=== PATIENT | male | born 1955 | race Caucasian/White ===

== ENCOUNTER 2020-10-30 06:45 | Outpatient (REF) | payer MEDICARE, MEDICAID, SELFPAY ==
[2020-10-30 11:50] LABS: Estimated Average Glucose 212 mg/dL
[2020-10-30 11:54] LABS: Alanine Aminotransferase 25 U/L (0-40); Albumin Level 4.1 g/dL (3.5-5.0); Alkaline Phosphatase 95 U/L (39-117); Anion Gap 15 (12-20); Aspartate Amino Transferase 28 U/L (5-37); Blood Urea Nitrogen 23 mg/dL (9-16); Carbon Dioxide 27 mmol/L (22-29); Chloride 102 mmol/L (96-108); Cholesterol 143 mg/dL; Estimated Glomerular Filt Rate 50; Glucose Fasting 290 mg/dL (60-99); HDL Cholesterol 32 mg/dL; Potassium 3.7 mmol/L (3.3-5.1); Sodium 140 mmol/L (135-145); Total Protein 6.8 g/dL (6.5-8.0); Triglycerides 403 mg/dL
[2020-10-30 12:17] LABS: TSH reflex Free T4 3.84 uIU/mL (0.32-4.0)
[2020-10-30 12:30] LABS: Creatinine Urine 127.38 mg/dL; Microalbum/Creatinine Ratio Ur 6.2 ug/mg cr
== END 2020-10-30 06:46 | disposition home or self-care (01) ==
LOC: HO.HMGCLDS 06:45
PROVIDERS: PCP Nurse Practitioner Family; Visit Provider Nurse Practitioner Family
DX: Z12.5 Encounter for screening for malignant neoplasm of prostate (principal); E11.9 Type 2 diabetes mellitus without complications; E03.9 Hypothyroidism, unspecified
CPT/HCPCS: 36415; 80053; 80061; 82043; 83036; 84153; 84443

== ENCOUNTER 2020-11-03 07:23 | Outpatient (REF) | payer MEDICARE, MEDICAID, SELFPAY ==
[2020-11-03 11:51] LABS: Alanine Aminotransferase 27 U/L (0-40); Albumin Level 4.1 g/dL (3.5-5.0); Alkaline Phosphatase 98 U/L (39-117); Anion Gap 15 (12-20); Aspartate Amino Transferase 29 U/L (5-37); Blood Urea Nitrogen 21 mg/dL (9-16); Calcium 9.1 mg/dL (8.4-10.2); Carbon Dioxide 25 mmol/L (22-29); Chloride 103 mmol/L (96-108); Estimated Glomerular Filt Rate 57; Glucose Random 243 mg/dL (60-115); Potassium 3.8 mmol/L (3.3-5.1); Sodium 139 mmol/L (135-145); Total Protein 6.8 g/dL (6.5-8.0)
[2020-11-03 12:03] LABS: Prostate Specific Antigen Scr 1.58 ng/mL (<0.05-4.0)
== END 2020-11-03 07:24 | disposition home or self-care (01) ==
LOC: HO.HMGCLDS 07:23
PROVIDERS: PCP Nurse Practitioner Family; Visit Provider Nurse Practitioner Family
DX: Z12.5 Encounter for screening for malignant neoplasm of prostate (principal); R79.89 Other specified abnormal findings of blood chemistry
CPT/HCPCS: 36415; 80053; 84153

== ENCOUNTER 2021-06-05 13:53 | Outpatient (REF) | payer MEDICARE, MEDICAID, SELFPAY ==
--- NOTE | ~2021-06-05 | XR_ITS ---
EXAMINATION: XR CHEST CLINICAL INFORMATION: Dorsalgia, unspecified. COMPARISON: Chest done on 04/23/2019. TECHNIQUE: 2 views of the chest were obtained. FINDINGS: Stable linear pleuroparenchymal opacities are noted at left lung base, unchanged since 04/23/2019. The remainder of the lung apices bilaterally appear clear. Cardiac mediastinal silhouette is within normal limits. There is no evidence of any pleural effusion or pneumothorax. Mild multilevel degenerative spondylosis, unchanged. XR/XR chest 2V IMPRESSION: Stable radiographic appearance of the chest since 04/23/2019. Mild multilevel degenerative spondylosis and stable presumed pleuroparenchymal scar at left lung base.
== END 2021-06-05 13:54 | disposition home or self-care (01) ==
LOC: HO.HMGCX 13:53
PROVIDERS: PCP Nurse Practitioner Family; Visit Provider Internal Medicine
DX: M54.9 Dorsalgia, unspecified (principal)
CPT/HCPCS: 71046

== ENCOUNTER 2021-08-01 12:21 | Outpatient (REF) | payer MEDICARE, MEDICAID, SELFPAY ==
--- NOTE | ~2021-08-01 | XR_ITS ---
EXAMINATION: XR CHEST CLINICAL INFORMATION: R05.9 - Cough, unspecified COMPARISON: Chest radiographs 06/05/2021, 04/23/2019 TECHNIQUE: 2 views of the chest were obtained. FINDINGS: There is fine linear scarring inferior lingula similar to prior studies. Lateral view shows disc atelectasis posterior base. The remainder the lungs are clear. The vascularity is normal. There is no lobar or segmental airspace consolidation or groundglass opacity. No definite effusion. The heart is normal in size and the hilar and mediastinal contours are normal. XR/XR chest 2V IMPRESSION: 1. Disc atelectasis left posterior base. 2. Fine linear scar left lower zone similar to prior studies. 3. No lobar or segmental airspace consolidation or groundglass opacity.
== END 2021-08-01 12:22 | disposition home or self-care (01) ==
LOC: HO.HMGCX 12:21
PROVIDERS: Visit Provider Physician Assistant
DX: R05.9 Cough, unspecified (principal)
CPT/HCPCS: 71046

== ENCOUNTER 2021-09-14 15:44 | Emergency (ER) | payer MEDICARE, MEDICAID, SELFPAY ==
--- NOTE | ~2021-09-14 | XR_ITS ---
EXAMINATION: XR CHEST CLINICAL INFORMATION: Chest pain. COMPARISON: Chest radiograph dated from 08/01/2021. TECHNIQUE: AP view of the chest was obtained. FINDINGS: Stable appearance of the cardiomediastinal silhouette with atherosclerotic disease of the thoracic aorta. There are new very subtle hazy opacities in the right lung (see abarca saved images). There is redemonstration increased platelike opacities in the left lower lobe/retrocardiac region. No pleural effusion or pneumothorax. No acute osseous abnormalities. XR/XR chest 1V IMPRESSION: New hazy airspace opacities in the right lung and increased platelike opacities in the retrocardiac region is/left lower lobe. Findings raises the possibility of infiltrates in the setting of an atypical infectious or inflammatory process. Correlate clinically for infection and recommend a follow-up study after treatment to ensure resolution.
--- NOTE | 2021-09-14 15:49 | ECG_ITS ---
Test Reason : CHEST PAIN Blood Pressure : / mmHG Vent. Rate : 076 BPM Atrial Rate : 076 BPM P-R Int : 164 ms QRS Dur : 072 ms QT Int : 368 ms P-R-T Axes : 000 -20 000 degrees QTc Int : 414 ms Normal sinus rhythm Normal ECG When compared with ECG of 14-MAR-2014 10:37, QT has shortened Referred By: Generic ED Physician Electronically Signed By:Denny De Los Santos
[2021-09-14 15:50] VITALS: BP 149/90; PULSE 91; O2SAT 98
[2021-09-14 15:51] VITALS: BP 161/87; PULSE 81; RESP 18; TEMP 36.8; O2SAT 97; BMI 32.5
[2021-09-14 16:03] VITALS: BP 161/97; PULSE 86; RESP 16; TEMP 36.8; O2SAT 96
--- NOTE | 2021-09-14 16:14 | ED.CHESTPAIN ---
HPI - Chest Pain General Chief Complaint: Chest Pain <Matilda Painter NP - Last Filed: 09/14/21 22:30> Stated Complaint: chest pain <Matilda Painter NP - Last Filed: 09/14/21 22:30> Time Seen by Provider: 09/14/21 16:10 <Matilda Painter NP - Last Filed: 09/14/21 22:30> Source: patient and EMS <Matilda Painter NP - Last Filed: 09/14/21 22:30> Mode of arrival: EMS <Matilda Painter NP - Last Filed: 09/14/21 22:30> Limitations: no limitations <Matilda Painter NP - Last Filed: 09/14/21 22:30> History of Present Illness HPI narrative: 66-year-old male presents via EMS for mid substernal stabbing and burning chest pain. Patient also had a syncopal event during an episode of chest pain <Matilda Painter NP - Last Filed: 09/14/21 22:30> MD complaint: chest pain <Matilda Painter NP - Last Filed: 09/14/21 22:30> Onset (ago): day(s) (2) <Matilda Painter NP - Last Filed: 09/14/21 22:30> Timing of current episode: episodic <Matilda Painter NP - Last Filed: 09/14/21 22:30> Prior episodes: Yes <Matilda Painter NP - Last Filed: 09/14/21 22:30> Onset: during rest <Matilda Painter NP - Last Filed: 09/14/21 22:30> Pain location: substernal and epigastric <Matilda Painter NP - Last Filed: 09/14/21 22:30> Quality: burning <Matilda Painter NP - Last Filed: 09/14/21 22:30> Exacerbating factors: nothing <Matilda Painter NP - Last Filed: 09/14/21 22:30> Associated symptoms: syncope <Matilda Painter NP - Last Filed: 09/14/21 22:30> Treatment prior to arrival: none <Matilda Painter NP - Last Filed: 09/14/21 22:30> Risk Factors Coronary artery disease risk factors: diabetes, hyperlipidemia and hypertension <Matilda Painter NP - Last Filed: 09/14/21 22:30> Thoracic aortic dissection risk factors: none <Matilda Painter NP - Last Filed: 09/14/21 22:30> Related Data Home Medications: Home Medications Medication Instructions Recorded Confirmed terazosin 5 mg capsule 5 mg PO BEDTIME 03/23/20 02/28/21 blood sugar diagnostic #10 ea 04/19/20 02/28/21 Previous Rx's Medication Instructions Recorded diabetic shoes #1 ea 06/13/20 potassium chloride 10 mEq 10 meq PO DAILY #90 cap 06/27/20 tablet,extended release(part/cryst) alcohol swabs (Alcohol Prep Pads) 1 pad TOPICAL TID 30 Days #100 ea 03/20/21 losartan 50 mg tablet 50 mg PO DAILY #90 cap 03/20/21 ighgno-xjhmcsfv-fulmxap 1 cap PO TID 30 Days #90 cap 05/20/21 15,000-47,000-63,000 unit capsule,delayed rel (Zenpep) cyclobenzaprine 10 mg tablet 10 mg PO BEDTIME #14 tab 06/05/21 meloxicam 15 mg tablet 15 mg PO DAILY #14 tab 06/05/21 potassium chloride 10 mEq 10 meq PO DAILY 90 Days #90 tab 06/18/21 tablet,extended release insulin human U-100 NPH-regulr 80 unit (0.8 mL) SUBCUT DAILY 90 07/03/21 70-30 mix 100 unit/mL subcutaneous Days #72 ml susp (Novolin 70/30 U-100 Insulin) pravastatin 80 mg tablet 80 mg PO DAILY 90 Days #90 cap 07/18/21 oxycodone 5 mg capsule 5 mg PO Q12H PRN #10 cap 08/02/21 blood sugar diagnostic (Accu-Chek 1 strip MISCELLANEOUS TID 90 Days 08/18/21 Soo Plus test strp) #100 ea hydrochlorothiazide 25 mg tablet 25 mg PO QAM 90 Days #90 tab 08/18/21 insulin syringe-needle U-100 1 mL #100 ea 08/18/21 30 gauge x 1/2 levothyroxine 112 mcg tablet 112 mcg PO DAILY #90 cap 08/18/21 metoprolol tartrate 50 mg tablet 50 mg PO BID #180 cap 08/18/21 ursodiol 300 mg capsule 300 mg PO BID #180 cap 08/18/21 esomeprazole magnesium 40 mg 40 mg PO DAILY 90 Days #90 cap 08/23/21 capsule,delayed release sucralfate 1 gram tablet 1 g PO BID #30 tab 09/11/21 azithromycin 250 mg tablet 250 mg PO DAILY 4 Days #4 tab 09/14/21 <Matilda Painter NP - Last Filed: 09/14/21 22:30> Allergies/Adverse Reactions: Allergies Allergy/AdvReac Type Severity Reaction Status Date / Time ciprofloxacin [From CIPRO] Allergy Unknown UNKNOWN Verified 09/11/21 14:04 doxycycline [DOXYCYCLINE] Allergy Unknown UNKNOWN Verified 09/11/21 14:04 prednisone [PREDNISONE] Allergy Unknown UNKNOWN Verified 09/11/21 14:04 NUMBING MEDICATION Allergy Severe HEART Uncoded 09/11/21 14:04 STOPPED From DETROL Allergy Unknown UNKNOWN Uncoded 09/11/21 14:04 From LESCOL Allergy Unknown UNKNOWN Uncoded 09/11/21 14:04 <Matilda Painter NP - Last Filed: 09/14/21 22:30> Review of Systems Review of Systems: Constitutional: Positive syncope, No Weight loss, No Fever, No Chills, No Night Sweats, No Fatigue, No Malaise ENT/Mouth: No Hearing loss, No Ear Pain, No Nasal Congestion, No Sinus Pain, No Hoarseness, No sore throat, No Rhinorrhea, No Swallowing Difficulty Eyes: No Eye Pain, No Swelling, No Redness, No Foreign Body, No Discharge, No Vision Changes Cardiovascular: Positive Chest Pain, no SOB, no Dyspnea on Exertion, No Orthopnea, No Edema, No Palpitations Respiratory: No Cough, No Sputum, No Wheezing, No Smoke Exposure, No Dyspnea Gastrointestinal: No Nausea, No Vomiting, No Diarrhea, No abdominal Pain, No Hematochezia, No Melena Genitourinary: No irregular bleeding, No Dysuria, No Urinary Frequency, No Hematuria, No Urinary Incontinence, No Urgency, No Flank Pain, No Urinary Flow Changes, No Hesitancy Musculoskeletal: No joint pain, No Myalgias, No Joint Swelling Skin: No Skin Lesions, No rash Neuro: No Weakness, No Numbness, No Paresthesias, No Loss of Consciousness, No Dizziness, No Headache Psych: No Anxiety/Panic, No Depression, No SI/HI/AH/VH Heme/Lymph: No Bruising, No Bleeding,No Lymphadenopathy Endocrine: No Polyuria, No Polydipsia, No Temperature Intolerance <Matilda Painter NP - Last Filed: 09/14/21 22:30> Yes all other systems are reviewed and are negative <Matilda Painter NP - Last Filed: 09/14/21 22:30> [facility] Past Medical History Attestation statement: The following information was validated with the patient. <Matilda Painter NP - Last Filed: 09/14/21 22:30> Source: old records reviewed <Matilda Painter NP - Last Filed: 09/14/21 22:30> Medical History: Medical History Anxiety Hyperlipidemia Hypertension Pancreatitis Screening PSA (prostate specific antigen) <Matilda Painter NP - Last Filed: 09/14/21 22:30> Social History Social History: Social History Patient Tobacco Use Status: Never used Tobacco Advance Directives: No Advance Directives Information Provided: No <Matilda Painter NP - Last Filed: 09/14/21 22:30> Physical Exam Vital Signs: Vital Signs: Last Vital Signs Temp 98.9 F 09/14/21 21:38 Pulse 90 09/14/21 21:38 Resp 20 09/14/21 21:38 BP 168/83 H 09/14/21 21:38 Pulse Ox 97 09/14/21 21:38 BMI result Body Mass Index 32.5 <Matilda Painter NP - Last Filed: 09/14/21 22:30> Vital Signs: Last Vital Signs Temp 98.9 F 09/14/21 21:38 Pulse 90 09/14/21 21:38 Resp 20 09/14/21 21:38 BP 168/83 H 09/14/21 21:38 Pulse Ox 97 09/14/21 21:38 BMI result Body Mass Index 32.5 <Duran Oliveros MD - Last Filed: 09/14/21 21:49> Appearance: Alert. Oriented X3. No acute distress. Eyes: Pupils equal, round and reactive to light. ENT: Pharynx normal. Neck: Normal inspection. Neck supple. CVS: Normal heart rate and rhythm. Pulses normal. Respiratory: No respiratory distress. Breath sounds normal. Abdomen: Soft and nontender. Skin: Skin warm and dry. Normal skin color. Normal skin turgor. Extremities: No lower extremity edema. Gait not assessed for safety. Move all extremities against resistance. Neuro: No motor deficit. No sensory deficit. Cranial nerves 2 through 12 intact <Matilda Painter NP - Last Filed: 09/14/21 22:30> Course Course Course Narrative: 66-year-old male presents with midsternal stabbing chest pain, abdominal and epigastric pain with a syncopal episode. States that he has had GERD in the past and it feels similar with the exception of the syncopal episode. He does not report chest pain on inspiration, shortness of breath. He does not report fevers or chills. Will order labs to rule out ACS, chest x-ray to rule out pneumonia. 17:51 labs drawn at this time. 18:23 lactic acid 2.3. Sepsis protocol started at this time. x-ray shows infiltrates consistent with pneumonia. Will start with fluid resuscitation, ceftriaxone and azithromycin. Fluid resuscitation per ideal body weight, 2000 mL of normal saline. First troponin is 90. Will repeat 2nd. 21:37 2nd troponin is 135. Patient is still adamant about being discharged against medical advice. Multiple discussions with patient regarding risks of leaving against medical advice. Patient verbalized understanding of risks including . 21:44 Dr. Gilliland in to discuss plan with patient. Patient is adamant about leaving at this time. Discharged against medical advice. <Matilda Painter NP - Last Filed: 09/14/21 22:30> 66-year-old male presents with midsternal stabbing chest pain, abdominal and epigastric pain with a syncopal episode. States that he has had GERD in the past and it feels similar with the exception of the syncopal episode. He does not report chest pain on inspiration, shortness of breath. He does not report fevers or chills. Will order labs to rule out ACS, chest x-ray to rule out pneumonia. 17:51 labs drawn at this time. 18:23 lactic acid 2.3. Sepsis protocol started at this time. x-ray shows infiltrates consistent with pneumonia. Will start with fluid resuscitation, ceftriaxone and azithromycin. Fluid resuscitation per ideal body weight, 2000 mL of normal saline. First troponin is 90. Will repeat 2nd. 21:37 2nd troponin is 135. Patient is still adamant about being discharged against medical advice. Multiple discussions with patient regarding risks of leaving against medical advice. Patient verbalized understanding of risks including . 21:44 Dr. Gilliland in to discuss plan with patient. Patient is adamant about leaving at this time. Discharged against medical advice. <Duran Oliveros MD - Last Filed: 09/14/21 21:49> Reevaluation(s) Reevaluation #1: Case discussed with patient about the chest pain that needs further evaluation and could be equivalent to ACS patient refused to stay in the hospital understood the risk of having an OR including the will sign the AMA form <Duran Oliveros MD - Last Filed: 09/14/21 21:49> Time: 21:48 <Duran Oliveros MD - Last Filed: 09/14/21 21:49> MDM - Chest Pain Differential Diagnosis Differential diagnosis: Likely atypical chest pain, st elevation myocardial infarction, costochondritis and chest pain <Matilda Painter NP - Last Filed: 09/14/21 22:30> Medical Records Data Attestation: I reviewed the patient's medical records. <Matilda Painter NP - Last Filed: 09/14/21 22:30> Lab Data Attestation: I reviewed the patient's lab results. <Matilda Painter NP - Last Filed: 09/14/21 22:30> Result diagrams: : 09/14/21 17:51 09/14/21 17:51 <Matilda Painter NP - Last Filed: 09/14/21 22:30> Labs: Lab Results 09/14/21 09/14/21 09/14/21 Range/Units 17:51 17:51 17:51 WBC 9.6 (4.8-10.8) X10*3/uL RBC 4.39 L (4.60-5.80) X10*6/uL Hgb 13.4 L (14.0-18.0) g/dl Hct 39.5 L (42.0-52.0) % MCV 90.0 (80.0-98.0) fL MCH 30.5 (27.0-33.0) pg MCHC 33.9 (31.0-36.0) g/dl RDW 12.5 (11.0-16.0) % Plt Count 162 (160-400) X10*3/uL MPV 11.2 (9.4-12.4) fL Immature Gran % (Auto) 0.5 H (0.0-0.4) % Neut % (Auto) 78.6 H (45-73) % Lymph % (Auto) 14.2 L (20-40) % [place] % (Auto) 5.0 (2-11) % Eos % (Auto) 1.4 (0-4) % Baso % (Auto) 0.3 (0-2) % Lymph # (Auto) 1.4 (1.2-4.9) X10*3/uL [place] # (Auto) 0.5 (0.1-1.2) X10*3/uL Eos # (Auto) 0.1 (0.0-0.4) X10*3/uL Baso # (Auto) 0.0 (0.0-0.2) X10*3/uL Abs Immat Gran (auto) 0.05 H (0.00-0.03) X10*3/uL Absolute Neuts (auto) 7.5 (2.0-8.3) x10*3/uL Absolute Nucleated RBC 0.000 (0.0-0.012) X10*3/uL Nucleated RBC % (auto) 0.0 (0.0-0.2) /100WBC PT 12.1 (9.9-13.0) SEC INR 1.1 (0.9-1.1) Sodium 137 (135-145) mmol/L Potassium 4.0 (3.3-5.1) mmol/L Chloride 101 (96-108) mmol/L Carbon Dioxide 26 (22-29) mmol/L Anion Gap 14 (12-20) BUN 25 H (9-16) mg/dL Creatinine 1.35 (0.5-1.4) mg/dL Estim Creat Clear Calc 53.2 Estimated GFR 53 Random Glucose 250 H (60-115) mg/dL Lactic Acid (0.5-2.0) mmol/L Lactic Acid F/U @ 2Hr (0.5-2.0) mmol/L Calcium 9.9 D (8.4-10.2) mg/dL Magnesium 2.0 (1.6-2.6) mg/dL Total Bilirubin 1.2 H (0.0-1.0) mg/dL Direct Bilirubin 0.4 (0.0-0.5) mg/dL AST 25 (5-37) U/L ALT 27 (0-40) U/L Alkaline Phosphatase 112 (39-117) U/L Troponin I High Sens (<3.5-35.0) ng/L B-Natriuretic Peptide (<100) pg/mL Total Protein 7.2 (6.5-8.0) g/dL Albumin 4.4 (3.5-5.0) g/dL Lipase 6 L (8-78) U/L Urine Color Urine Appearance Urine pH (5.0-8.0) Ur Specific [place] (1.005-1.025) Urine Protein (NEG-TRACE) MG/DL Urine Glucose (UA) (NEG) MG/DL Urine Ketones (NEG) MG/DL Urine Blood (NEG) Urine Nitrite (NEG) Ur Leukocyte Esterase (NEG) Urine Opiates Screen (Not Detect) Urine Fentanyl Screen (Not Detect) Ur Barbiturates Screen (Not Detect) Ur Phencyclidine Scrn (Not Detect) Ur Amphetamines Screen (Not Detect) U Benzodiazepines Scrn (Not Detect) Urine Cocaine Screen (Not Detect) U Marijuana (THC) Screen (Not Detect) Ethyl Alcohol mg/dL COVID-19 ([facility]) (Negative) COVID-19 Clin Com 09/14/21 09/14/21 09/14/21 Range/Units 17:51 17:51 17:51 WBC (4.8-10.8) X10*3/uL RBC (4.60-5.80) X10*6/uL Hgb (14.0-18.0) g/dl Hct (42.0-52.0) % MCV (80.0-98.0) fL MCH (27.0-33.0) pg MCHC (31.0-36.0) g/dl RDW (11.0-16.0) % Plt Count (160-400) X10*3/uL MPV (9.4-12.4) fL Immature Gran % (Auto) (0.0-0.4) % Neut % (Auto) (45-73) % Lymph % (Auto) (20-40) % [place] % (Auto) (2-11) % Eos % (Auto) (0-4) % Baso % (Auto) (0-2) % Lymph # (Auto) (1.2-4.9) X10*3/uL [place] # (Auto) (0.1-1.2) X10*3/uL Eos # (Auto) (0.0-0.4) X10*3/uL Baso # (Auto) (0.0-0.2) X10*3/uL Abs Immat Gran (auto) (0.00-0.03) X10*3/uL Absolute Neuts (auto) (2.0-8.3) x10*3/uL Absolute Nucleated RBC (0.0-0.012) X10*3/uL Nucleated RBC % (auto) (0.0-0.2) /100WBC PT (9.9-13.0) SEC INR (0.9-1.1) Sodium (135-145) mmol/L Potassium (3.3-5.1) mmol/L Chloride (96-108) mmol/L Carbon Dioxide (22-29) mmol/L Anion Gap (12-20) BUN (9-16) mg/dL Creatinine (0.5-1.4) mg/dL Estim Creat Clear Calc Estimated GFR Random Glucose (60-115) mg/dL Lactic Acid 2.3 H* (0.5-2.0) mmol/L Lactic Acid F/U @ 2Hr (0.5-2.0) mmol/L Calcium (8.4-10.2) mg/dL Magnesium (1.6-2.6) mg/dL Total Bilirubin (0.0-1.0) mg/dL Direct Bilirubin (0.0-0.5) mg/dL AST (5-37) U/L ALT (0-40) U/L Alkaline Phosphatase (39-117) U/L Troponin I High Sens 91.3 H (<3.5-35.0) ng/L B-Natriuretic Peptide (<100) pg/mL Total Protein (6.5-8.0) g/dL Albumin (3.5-5.0) g/dL Lipase (8-78) U/L Urine Color Urine Appearance Urine pH (5.0-8.0) Ur Specific [place] (1.005-1.025) Urine Protein (NEG-TRACE) MG/DL Urine Glucose (UA) (NEG) MG/DL Urine Ketones (NEG) MG/DL Urine Blood (NEG) Urine Nitrite (NEG) Ur Leukocyte Esterase (NEG) Urine Opiates Screen (Not Detect) Urine Fentanyl Screen (Not Detect) Ur Barbiturates Screen (Not Detect) Ur Phencyclidine Scrn (Not Detect) Ur Amphetamines Screen (Not Detect) U Benzodiazepines Scrn (Not Detect) Urine Cocaine Screen (Not Detect) U Marijuana (THC) Screen (Not Detect) Ethyl Alcohol mg/dL COVID-19 ([facility]) Negative (Negative) COVID-19 Clin Com See Note 09/14/21 09/14/21 09/14/21 Range/Units 17:51 17:51 19:57 WBC (4.8-10.8) X10*3/uL RBC (4.60-5.80) X10*6/uL Hgb (14.0-18.0) g/dl Hct (42.0-52.0) % MCV (80.0-98.0) fL MCH (27.0-33.0) pg MCHC (31.0-36.0) g/dl RDW (11.0-16.0) % Plt Count (160-400) X10*3/uL MPV (9.4-12.4) fL Immature Gran % (Auto) (0.0-0.4) % Neut % (Auto) (45-73) % Lymph % (Auto) (20-40) % [place] % (Auto) (2-11) % Eos % (Auto) (0-4) % Baso % (Auto) (0-2) % Lymph # (Auto) (1.2-4.9) X10*3/uL [place] # (Auto) (0.1-1.2) X10*3/uL Eos # (Auto) (0.0-0.4) X10*3/uL Baso # (Auto) (0.0-0.2) X10*3/uL Abs Immat Gran (auto) (0.00-0.03) X10*3/uL Absolute Neuts (auto) (2.0-8.3) x10*3/uL Absolute Nucleated RBC (0.0-0.012) X10*3/uL Nucleated RBC % (auto) (0.0-0.2) /100WBC PT (9.9-13.0) SEC INR (0.9-1.1) Sodium (135-145) mmol/L Potassium (3.3-5.1) mmol/L Chloride (96-108) mmol/L Carbon Dioxide (22-29) mmol/L Anion Gap (12-20) BUN (9-16) mg/dL Creatinine (0.5-1.4) mg/dL Estim Creat Clear Calc Estimated GFR Random Glucose (60-115) mg/dL Lactic Acid (0.5-2.0) mmol/L Lactic Acid F/U @ 2Hr (0.5-2.0) mmol/L Calcium (8.4-10.2) mg/dL Magnesium (1.6-2.6) mg/dL Total Bilirubin (0.0-1.0) mg/dL Direct Bilirubin (0.0-0.5) mg/dL AST (5-37) U/L ALT (0-40) U/L Alkaline Phosphatase (39-117) U/L Troponin I High Sens (<3.5-35.0) ng/L B-Natriuretic Peptide < 10 (<100) pg/mL Total Protein (6.5-8.0) g/dL Albumin (3.5-5.0) g/dL Lipase (8-78) U/L Urine Color Urine Appearance Urine pH (5.0-8.0) Ur Specific [place] (1.005-1.025) Urine Protein (NEG-TRACE) MG/DL Urine Glucose (UA) (NEG) MG/DL Urine Ketones (NEG) MG/DL Urine Blood (NEG) Urine Nitrite (NEG) Ur Leukocyte Esterase (NEG) Urine Opiates Screen Not Detected (Not Detect) Urine Fentanyl Screen Not Detected (Not Detect) Ur Barbiturates Screen Not Detected (Not Detect) Ur Phencyclidine Scrn Not Detected (Not Detect) Ur Amphetamines Screen Not Detected (Not Detect) U Benzodiazepines Scrn Not Detected (Not Detect) Urine Cocaine Screen Not Detected (Not Detect) U Marijuana (THC) Screen Not Detected (Not Detect) Ethyl Alcohol < 10 mg/dL COVID-19 ([facility]) (Negative) COVID-19 Clin Com 09/14/21 09/14/21 09/14/21 Range/Units 19:57 21:01 21:01 WBC (4.8-10.8) X10*3/uL RBC (4.60-5.80) X10*6/uL Hgb (14.0-18.0) g/dl Hct (42.0-52.0) % MCV (80.0-98.0) fL MCH (27.0-33.0) pg MCHC (31.0-36.0) g/dl RDW (11.0-16.0) % Plt Count (160-400) X10*3/uL MPV (9.4-12.4) fL Immature Gran % (Auto) (0.0-0.4) % Neut % (Auto) (45-73) % Lymph % (Auto) (20-40) % [place] % (Auto) (2-11) % Eos % (Auto) (0-4) % Baso % (Auto) (0-2) % Lymph # (Auto) (1.2-4.9) X10*3/uL [place] # (Auto) (0.1-1.2) X10*3/uL Eos # (Auto) (0.0-0.4) X10*3/uL Baso # (Auto) (0.0-0.2) X10*3/uL Abs Immat Gran (auto) (0.00-0.03) X10*3/uL Absolute Neuts (auto) (2.0-8.3) x10*3/uL Absolute Nucleated RBC (0.0-0.012) X10*3/uL Nucleated RBC % (auto) (0.0-0.2) /100WBC PT (9.9-13.0) SEC INR (0.9-1.1) Sodium (135-145) mmol/L Potassium (3.3-5.1) mmol/L Chloride (96-108) mmol/L Carbon Dioxide (22-29) mmol/L Anion Gap (12-20) BUN (9-16) mg/dL Creatinine (0.5-1.4) mg/dL Estim Creat Clear Calc Estimated GFR Random Glucose (60-115) mg/dL Lactic Acid (0.5-2.0) mmol/L Lactic Acid F/U @ 2Hr 1.4 (0.5-2.0) mmol/L Calcium (8.4-10.2) mg/dL Magnesium (1.6-2.6) mg/dL Total Bilirubin (0.0-1.0) mg/dL Direct Bilirubin (0.0-0.5) mg/dL AST (5-37) U/L ALT (0-40) U/L Alkaline Phosphatase (39-117) U/L Troponin I High Sens 135.8 H* (<3.5-35.0) ng/L B-Natriuretic Peptide (<100) pg/mL Total Protein (6.5-8.0) g/dL Albumin (3.5-5.0) g/dL Lipase (8-78) U/L Urine Color YELLOW Urine Appearance CLEAR Urine pH 7.5 (5.0-8.0) Ur Specific [place] 1.015 (1.005-1.025) Urine Protein NEG (NEG-TRACE) MG/DL Urine Glucose (UA) 500 H (NEG) MG/DL Urine Ketones NEG (NEG) MG/DL Urine Blood NEG (NEG) Urine Nitrite NEG (NEG) Ur Leukocyte Esterase NEG (NEG) Urine Opiates Screen (Not Detect) Urine Fentanyl Screen (Not Detect) Ur Barbiturates Screen (Not Detect) Ur Phencyclidine Scrn (Not Detect) Ur Amphetamines Screen (Not Detect) U Benzodiazepines Scrn (Not Detect) Urine Cocaine Screen (Not Detect) U Marijuana (THC) Screen (Not Detect) Ethyl Alcohol mg/dL COVID-19 ([facility]) (Negative) COVID-19 Clin Com <Matilda Painter NP - Last Filed: 09/14/21 22:30> Lab Results 03/25/22 03/25/22 03/25/22 Range/Units 17:51 17:51 17:51 WBC 9.6 (4.8-10.8) X10*3/uL RBC 4.39 L (4.60-5.80) X10*6/uL Hgb 13.4 L (14.0-18.0) g/dl Hct 39.5 L (42.0-52.0) % MCV 90.0 (80.0-98.0) fL MCH 30.5 (27.0-33.0) pg MCHC 33.9 (31.0-36.0) g/dl RDW 12.5 (11.0-16.0) % Plt Count 162 (160-400) X10*3/uL MPV 11.2 (9.4-12.4) fL Immature Gran % (Auto) 0.5 H (0.0-0.4) % Neut % (Auto) 78.6 H (45-73) % Lymph % (Auto) 14.2 L (20-40) % [place] % (Auto) 5.0 (2-11) % Eos % (Auto) 1.4 (0-4) % Baso % (Auto) 0.3 (0-2) % Lymph # (Auto) 1.4 (1.2-4.9) X10*3/uL [place] # (Auto) 0.5 (0.1-1.2) X10*3/uL Eos # (Auto) 0.1 (0.0-0.4) X10*3/uL Baso # (Auto) 0.0 (0.0-0.2) X10*3/uL Abs Immat Gran (auto) 0.05 H (0.00-0.03) X10*3/uL Absolute Neuts (auto) 7.5 (2.0-8.3) x10*3/uL Absolute Nucleated RBC 0.000 (0.0-0.012) X10*3/uL Nucleated RBC % (auto) 0.0 (0.0-0.2) /100WBC PT 12.1 (9.9-13.0) SEC INR 1.1 (0.9-1.1) Sodium 137 (135-145) mmol/L Potassium 4.0 (3.3-5.1) mmol/L Chloride 101 (96-108) mmol/L Carbon Dioxide 26 (22-29) mmol/L Anion Gap 14 (12-20) BUN 25 H (9-16) mg/dL Creatinine 1.35 (0.5-1.4) mg/dL Estim Creat Clear Calc 53.2 Estimated GFR 53 Random Glucose 250 H (60-115) mg/dL Lactic Acid (0.5-2.0) mmol/L Lactic Acid F/U @ 2Hr (0.5-2.0) mmol/L Calcium 9.9 D (8.4-10.2) mg/dL Magnesium 2.0 (1.6-2.6) mg/dL Total Bilirubin 1.2 H (0.0-1.0) mg/dL Direct Bilirubin 0.4 (0.0-0.5) mg/dL AST 25 (5-37) U/L ALT 27 (0-40) U/L Alkaline Phosphatase 112 (39-117) U/L Troponin I High Sens (<3.5-35.0) ng/L B-Natriuretic Peptide (<100) pg/mL Total Protein 7.2 (6.5-8.0) g/dL Albumin 4.4 (3.5-5.0) g/dL Lipase 6 L (8-78) U/L Urine Color Urine Appearance Urine pH (5.0-8.0) Ur Specific [place] (1.005-1.025) Urine Protein (NEG-TRACE) MG/DL Urine Glucose (UA) (NEG) MG/DL Urine Ketones (NEG) MG/DL Urine Blood (NEG) Urine Nitrite (NEG) Ur Leukocyte Esterase (NEG) Urine Opiates Screen (Not Detect) Urine Fentanyl Screen (Not Detect) Ur Barbiturates Screen (Not Detect) Ur Phencyclidine Scrn (Not Detect) Ur Amphetamines Screen (Not Detect) U Benzodiazepines Scrn (Not Detect) Urine Cocaine Screen (Not Detect) U Marijuana (THC) Screen (Not Detect) Ethyl Alcohol mg/dL COVID-19 ([facility]) (Negative) COVID-19 Clin Com 09/14/21 09/14/21 09/14/21 Range/Units 17:51 17:51 17:51 WBC (4.8-10.8) X10*3/uL RBC (4.60-5.80) X10*6/uL Hgb (14.0-18.0) g/dl Hct (42.0-52.0) % MCV (80.0-98.0) fL MCH (27.0-33.0) pg MCHC (31.0-36.0) g/dl RDW (11.0-16.0) % Plt Count (160-400) X10*3/uL MPV (9.4-12.4) fL Immature Gran % (Auto) (0.0-0.4) % Neut % (Auto) (45-73) % Lymph % (Auto) (20-40) % [place] % (Auto) (2-11) % Eos % (Auto) (0-4) % Baso % (Auto) (0-2) % Lymph # (Auto) (1.2-4.9) X10*3/uL [place] # (Auto) (0.1-1.2) X10*3/uL Eos # (Auto) (0.0-0.4) X10*3/uL Baso # (Auto) (0.0-0.2) X10*3/uL Abs Immat Gran (auto) (0.00-0.03) X10*3/uL Absolute Neuts (auto) (2.0-8.3) x10*3/uL Absolute Nucleated RBC (0.0-0.012) X10*3/uL Nucleated RBC % (auto) (0.0-0.2) /100WBC PT (9.9-13.0) SEC INR (0.9-1.1) Sodium (135-145) mmol/L Potassium (3.3-5.1) mmol/L Chloride (96-108) mmol/L Carbon Dioxide (22-29) mmol/L Anion Gap (12-20) BUN (9-16) mg/dL Creatinine (0.5-1.4) mg/dL Estim Creat Clear Calc Estimated GFR Random Glucose (60-115) mg/dL Lactic Acid 2.3 H* (0.5-2.0) mmol/L Lactic Acid F/U @ 2Hr (0.5-2.0) mmol/L Calcium (8.4-10.2) mg/dL Magnesium (1.6-2.6) mg/dL Total Bilirubin (0.0-1.0) mg/dL Direct Bilirubin (0.0-0.5) mg/dL AST (5-37) U/L ALT (0-40) U/L Alkaline Phosphatase (39-117) U/L Troponin I High Sens 91.3 H (<3.5-35.0) ng/L B-Natriuretic Peptide (<100) pg/mL Total Protein (6.5-8.0) g/dL Albumin (3.5-5.0) g/dL Lipase (8-78) U/L Urine Color Urine Appearance Urine pH (5.0-8.0) Ur Specific [place] (1.005-1.025) Urine Protein (NEG-TRACE) MG/DL Urine Glucose (UA) (NEG) MG/DL Urine Ketones (NEG) MG/DL Urine Blood (NEG) Urine Nitrite (NEG) Ur Leukocyte Esterase (NEG) Urine Opiates Screen (Not Detect) Urine Fentanyl Screen (Not Detect) Ur Barbiturates Screen (Not Detect) Ur Phencyclidine Scrn (Not Detect) Ur Amphetamines Screen (Not Detect) U Benzodiazepines Scrn (Not Detect) Urine Cocaine Screen (Not Detect) U Marijuana (THC) Screen (Not Detect) Ethyl Alcohol mg/dL COVID-19 ([facility]) Negative (Negative) COVID-19 Clin Com See Note 09/14/21 09/14/21 09/14/21 Range/Units 17:51 17:51 19:57 WBC (4.8-10.8) X10*3/uL RBC (4.60-5.80) X10*6/uL Hgb (14.0-18.0) g/dl Hct (42.0-52.0) % MCV (80.0-98.0) fL MCH (27.0-33.0) pg MCHC (31.0-36.0) g/dl RDW (11.0-16.0) % Plt Count (160-400) X10*3/uL MPV (9.4-12.4) fL Immature Gran % (Auto) (0.0-0.4) % Neut % (Auto) (45-73) % Lymph % (Auto) (20-40) % [place] % (Auto) (2-11) % Eos % (Auto) (0-4) % Baso % (Auto) (0-2) % Lymph # (Auto) (1.2-4.9) X10*3/uL [place] # (Auto) (0.1-1.2) X10*3/uL Eos # (Auto) (0.0-0.4) X10*3/uL Baso # (Auto) (0.0-0.2) X10*3/uL Abs Immat Gran (auto) (0.00-0.03) X10*3/uL Absolute Neuts (auto) (2.0-8.3) x10*3/uL Absolute Nucleated RBC (0.0-0.012) X10*3/uL Nucleated RBC % (auto) (0.0-0.2) /100WBC PT (9.9-13.0) SEC INR (0.9-1.1) Sodium (135-145) mmol/L Potassium (3.3-5.1) mmol/L Chloride (96-108) mmol/L Carbon Dioxide (22-29) mmol/L Anion Gap (12-20) BUN (9-16) mg/dL Creatinine (0.5-1.4) mg/dL Estim Creat Clear Calc Estimated GFR Random Glucose (60-115) mg/dL Lactic Acid (0.5-2.0) mmol/L Lactic Acid F/U @ 2Hr (0.5-2.0) mmol/L Calcium (8.4-10.2) mg/dL Magnesium (1.6-2.6) mg/dL Total Bilirubin (0.0-1.0) mg/dL Direct Bilirubin (0.0-0.5) mg/dL AST (5-37) U/L ALT (0-40) U/L Alkaline Phosphatase (39-117) U/L Troponin I High Sens (<3.5-35.0) ng/L B-Natriuretic Peptide < 10 (<100) pg/mL Total Protein (6.5-8.0) g/dL Albumin (3.5-5.0) g/dL Lipase (8-78) U/L Urine Color Urine Appearance Urine pH (5.0-8.0) Ur Specific [place] (1.005-1.025) Urine Protein (NEG-TRACE) MG/DL Urine Glucose (UA) (NEG) MG/DL Urine Ketones (NEG) MG/DL Urine Blood (NEG) Urine Nitrite (NEG) Ur Leukocyte Esterase (NEG) Urine Opiates Screen Not Detected (Not Detect) Urine Fentanyl Screen Not Detected (Not Detect) Ur Barbiturates Screen Not Detected (Not Detect) Ur Phencyclidine Scrn Not Detected (Not Detect) Ur Amphetamines Screen Not Detected (Not Detect) U Benzodiazepines Scrn Not Detected (Not Detect) Urine Cocaine Screen Not Detected (Not Detect) U Marijuana (THC) Screen Not Detected (Not Detect) Ethyl Alcohol < 10 mg/dL COVID-19 ([facility]AS) (Negative) COVID-19 Clin Com 09/14/21 09/14/21 09/14/21 Range/Units 19:57 21:01 21:01 WBC (4.8-10.8) X10*3/uL RBC (4.60-5.80) X10*6/uL Hgb (14.0-18.0) g/dl Hct (42.0-52.0) % MCV (80.0-98.0) fL MCH (27.0-33.0) pg MCHC (31.0-36.0) g/dl RDW (11.0-16.0) % Plt Count (160-400) X10*3/uL MPV (9.4-12.4) fL Immature Gran % (Auto) (0.0-0.4) % Neut % (Auto) (45-73) % Lymph % (Auto) (20-40) % [place] % (Auto) (2-11) % Eos % (Auto) (0-4) % Baso % (Auto) (0-2) % Lymph # (Auto) (1.2-4.9) X10*3/uL [place] # (Auto) (0.1-1.2) X10*3/uL Eos # (Auto) (0.0-0.4) X10*3/uL Baso # (Auto) (0.0-0.2) X10*3/uL Abs Immat Gran (auto) (0.00-0.03) X10*3/uL Absolute Neuts (auto) (2.0-8.3) x10*3/uL Absolute Nucleated RBC (0.0-0.012) X10*3/uL Nucleated RBC % (auto) (0.0-0.2) /100WBC PT (9.9-13.0) SEC INR (0.9-1.1) Sodium (135-145) mmol/L Potassium (3.3-5.1) mmol/L Chloride (96-108) mmol/L Carbon Dioxide (22-29) mmol/L Anion Gap (12-20) BUN (9-16) mg/dL Creatinine (0.5-1.4) mg/dL Estim Creat Clear Calc Estimated GFR Random Glucose (60-115) mg/dL Lactic Acid (0.5-2.0) mmol/L Lactic Acid F/U @ 2Hr 1.4 (0.5-2.0) mmol/L Calcium (8.4-10.2) mg/dL Magnesium (1.6-2.6) mg/dL Total Bilirubin (0.0-1.0) mg/dL Direct Bilirubin (0.0-0.5) mg/dL AST (5-37) U/L ALT (0-40) U/L Alkaline Phosphatase (39-117) U/L Troponin I High Sens 135.8 H* (<3.5-35.0) ng/L B-Natriuretic Peptide (<100) pg/mL Total Protein (6.5-8.0) g/dL Albumin (3.5-5.0) g/dL Lipase (8-78) U/L Urine Color YELLOW Urine Appearance CLEAR Urine pH 7.5 (5.0-8.0) Ur Specific [place] 1.015 (1.005-1.025) Urine Protein NEG (NEG-TRACE) MG/DL Urine Glucose (UA) 500 H (NEG) MG/DL Urine Ketones NEG (NEG) MG/DL Urine Blood NEG (NEG) Urine Nitrite NEG (NEG) Ur Leukocyte Esterase NEG (NEG) Urine Opiates Screen (Not Detect) Urine Fentanyl Screen (Not Detect) Ur Barbiturates Screen (Not Detect) Ur Phencyclidine Scrn (Not Detect) Ur Amphetamines Screen (Not Detect) U Benzodiazepines Scrn (Not Detect) Urine Cocaine Screen (Not Detect) U Marijuana (THC) Screen (Not Detect) Ethyl Alcohol mg/dL COVID-19 ([facility]) (Negative) COVID-19 Clin Com <Duran Oliveros MD - Last Filed: 09/14/21 21:49> Imaging Data Chest x-ray: Attestation: I personally reviewed and interpreted this imaging study as follows: <Matilda Painter NP - Last Filed: 09/14/21 22:30> Radiologist's impression: EXAMINATION: XR CHEST CLINICAL INFORMATION: Chest pain. COMPARISON: Chest radiograph dated from 08/01/2021. TECHNIQUE: AP view of the chest was obtained. FINDINGS: Stable appearance of the cardiomediastinal silhouette with atherosclerotic disease of the thoracic aorta. There are new very subtle hazy opacities in the right lung (see abarca saved images). There is redemonstration increased platelike opacities in the left lower lobe/retrocardiac region. No pleural effusion or pneumothorax. No acute osseous abnormalities. XR/XR chest 1V IMPRESSION: New hazy airspace opacities in the right lung and increased platelike opacities in the retrocardiac region is/left lower lobe. Findings raises the possibility of infiltrates in the setting of an atypical infectious or inflammatory process. ? Correlate clinically for infection and recommend a follow-up study after treatment to ensure resolution. ? <Matilda Painter NP - Last Filed: 09/14/21 22:30> ECG Data ECG #1: Attestation: I personally reviewed and interpreted this ECG as follows: <Matilda Painter NP - Last Filed: 09/14/21 22:30> ECG interpretation date: 09/14/21 <Matilda Painter NP - Last Filed: 09/14/21 22:30> ECG interpretation time: 15:47 <Matilda Painter NP - Last Filed: 09/14/21 22:30> Prior ECG tracings: available for review <Matilda Painter NP - Last Filed: 09/14/21 22:30> Interpretation: Vent. rate 76 BPM MI interval 164 ms QRS duration 72 ms QT/QTc 368/414 ms P-R-T axes 0 -20 0 Normal sinus rhythm Normal ECG When compared with ECG of 14-MAR-2014 10:37, QT has shortened <Matilda Painter NP - Last Filed: 09/14/21 22:30> Discharge Plan Discharge Clinical Impression: Acidosis, lactic, Pneumonia, Chest pain, Elevated troponin <Matilda Painter NP - Last Filed: 09/14/21 22:30> Patient Disposition: Left Against Medical Advice <Matilda Painter NP - Last Filed: 09/14/21 22:30> Instructions: Chest Pain (ED), Community Acquired Pneumonia (ED) <Matilda Painter NP - Last Filed: 09/14/21 22:30> Additional Instructions: You were evaluated for chest pain. Your cardiac enzymes are elevated. You are at risk for having a heart attack. You requested to leave against medical advice. Risks of leaving against medical advice includes . X-rays indicate pneumonia. Please take antibiotics as directed. I prescribed azithromycin. Please take this medication as directed. You may return to this facility at any time. Thank you for choosing this emergency department for evaluation. Please follow-up with primary care physician as needed. Return to the emergency department for any new, concerning, or worsening symptoms. <Matilda Painter NP - Last Filed: 09/14/21 22:30> Prescriptions: New azithromycin 250 mg tablet 250 mg PO DAILY 4 Days Qty: 4 0RF Rx Instructions: start on day 2 of therapy No Action (DME) diabetic shoes 0 .Route .MEDSUPPLY Qty: 1 0RF Rx Instructions: As directed for diabetes potassium chloride 10 mEq tablet,ER particles/crystals 10 meq PO DAILY Qty: 90 1RF losartan 50 mg tablet 50 mg PO DAILY Qty: 90 1RF alcohol swabs [Alcohol Prep Pads] Pads, Medicated 1 pad topical TID 30 Days Qty: 100 6RF Zenpep 15,000-47,000 -63,000 unit capsule,delayed release(DR/EC) 1 cap PO TID 30 Days Qty: 90 4RF Rx Instructions: administer with meals and/or snacks potassium chloride 10 mEq tablet extended release 10 meq PO DAILY 90 Days Qty: 90 1RF Novolin 70/30 U-100 Insulin 100 unit/mL (70-30) suspension 80 unit subcut DAILY 90 Days Qty: 72 1RF Rx Instructions: 85 units in AM and 55 units in PM pravastatin 80 mg tablet 80 mg PO DAILY 90 Days Qty: 90 2RF ursodiol 300 mg capsule 300 mg PO BID Qty: 180 4RF metoprolol tartrate 50 mg tablet 50 mg PO BID Qty: 180 0RF Accu-Chek Soo Plus test strp Strip 1 strip miscellaneous TID 90 Days Qty: 100 2RF (DME) insulin syringe-needle U-100 1 mL 30 gauge x 1/2 syringe See Rx Instructions ea .ROUTE BID Qty: 100 2RF Rx Instructions: use 1 syringe as needed for insulin injections levothyroxine 112 mcg tablet 112 mcg PO DAILY Qty: 90 0RF hydrochlorothiazide 25 mg tablet 25 mg PO QAM 90 Days Qty: 90 0RF esomeprazole magnesium 40 mg capsule,delayed release(DR/EC) 40 mg PO DAILY 90 Days Qty: 90 0RF terazosin 5 mg capsule 5 mg PO BEDTIME 0RF (DME) Accu-Chek Soo Plus test strp Strip See Rx Instructions ea Not Applicable TID Qty: 10 0RF Rx Instructions: As directed sucralfate 1 gram tablet 1 g PO BID Qty: 30 0RF meloxicam 15 mg tablet 15 mg PO DAILY Qty: 14 0RF cyclobenzaprine 10 mg tablet 10 mg PO BEDTIME Qty: 14 0RF oxycodone 5 mg capsule 5 mg PO Q12H PRN (Reason: pain) Qty: 10 0RF <Matilda Painter NP - Last Filed: 09/14/21 22:30> Stand Alone Forms: Against Medical Advice <Matilda Painter NP - Last Filed: 09/14/21 22:30>
[2021-09-14 17:56] VITALS: BP 134/77; PULSE 86; RESP 18; TEMP 37.3; O2SAT 95
[2021-09-14 18:00] VITALS: BP 134/77; PULSE 83; O2SAT 98
[2021-09-14 18:05] LABS: MANUAL DIFF FLAG NO
[2021-09-14 18:10] LABS: Basophils Percent Auto 0.3 % (0-2); Eosinophils Absolute Auto 0.1 X10*3/uL (0.0-0.4); Eosinophils Percent Auto 1.4 % (0-4); Hematocrit 39.5 % (42.0-52.0); Hemoglobin 13.4 g/dl (14.0-18.0); Imm Gran Abs Auto 0.05 X10*3/uL (0.00-0.03); Imm Gran Pct Auto 0.5 % (0.0-0.4); Lymphocytes Absolute Auto 1.4 X10*3/uL (1.2-4.9); Lymphocytes Percent Auto 14.2 % (20-40); Mean Corpuscular HGB Conc 33.9 g/dl (31.0-36.0); Mean Corpuscular Hemoglobin 30.5 pg (27.0-33.0); Mean Platelet Volume 11.2 fL (9.4-12.4); Monocytes Absolute Auto 0.5 X10*3/uL (0.1-1.2); Neutrophils Absolute Auto 7.5 x10*3/uL (2.0-8.3); Neutrophils Percent Auto 78.6 % (45-73); Platelet Count 162 X10*3/uL (160-400); Red Blood Count 4.39 X10*6/uL (4.60-5.80); Red Cell Distribution Width 12.5 % (11.0-16.0); White Blood Count 9.6 X10*3/uL (4.8-10.8)
[2021-09-14 18:12] LABS: INTERNATIONAL NORM RATIO 1.1 (0.9-1.1); Prothrombin Time 12.1 SEC (9.9-13.0)
[2021-09-14 18:23] LABS: Lactic Acid 2.3 mmol/L (0.5-2.0)
[2021-09-14 18:24] LABS: Ethanol < 10 mg/dL
[2021-09-14 18:25] LABS: COVID-19 Test Negative (Negative)
[2021-09-14 18:26] LABS: Alanine Aminotransferase 27 U/L (0-40); Albumin Level 4.4 g/dL (3.5-5.0); Alkaline Phosphatase 112 U/L (39-117); Anion Gap 14 (12-20); Aspartate Amino Transferase 25 U/L (5-37); Bilirubin Direct 0.4 mg/dL (0.0-0.5); Bilirubin Total 1.2 mg/dL (0.0-1.0); Blood Urea Nitrogen 25 mg/dL (9-16); Calcium 9.9 mg/dL (8.4-10.2); Carbon Dioxide 26 mmol/L (22-29); Chloride 101 mmol/L (96-108); Creatinine Clr Calc Pharmacy 53.2; Estimated Glomerular Filt Rate 53; Glucose Random 250 mg/dL (60-115); Lipase 6 U/L (8-78); Sodium 137 mmol/L (135-145); Total Protein 7.2 g/dL (6.5-8.0)
[2021-09-14 18:30] LABS: B Type Natriuretic Peptide < 10 pg/mL (<100); Troponin-I High Sensitivity 91.3 ng/L (<3.5-35.0)
[2021-09-14] MEDS: cefTRIAXone sodium 1 GM in 0.9 % Sodium Chloride 50 ML IV (18:33)
[2021-09-14] MEDS: 0.9 % Sodium Chloride 1,000 ML 999 ML IVCONT ×2 (18:33→19:34)
--- NOTE | 2021-09-14 19:43 | PC.NURSE ---
Patient was informed of the plan for admission to the hospital. The patient stated I am leaving and I am not staying. I told them that when I got here . I told the patient that I would let the SENIOR ANALYTIC CONSULTANT know. This continuity writer informed SENIOR ANALYTIC CONSULTANT that patient was planning on leaving AMA.
[2021-09-14] MEDS: Azithromycin 500 MG in 0.9 % Sodium Chloride 250 ML 125 MG IV (19:58)
[2021-09-14 20:03] LABS: Reflex Lactate? Lactic Acid Added
[2021-09-14 20:18] LABS: Appearance Urine CLEAR; Color Urine YELLOW; Glucose Urine UA 500 MG/DL (NEG); Leukocyte Esterase Urine NEG (NEG); Nitrite Urine NEG (NEG); PH 7.5 (5.0-8.0); Specific Gravity - Urine 1.015 (1.005-1.025); Urine Blood NEG (NEG); Urine Ketones NEG (NEG); Urine Protein NEG (NEG-TRACE)
[2021-09-14 20:29] LABS: Amphetamine Screen Urine Not Detected (Not Detect); Barbiturates, Urine Not Detected (Not Detect); Benzodiazepines Screen Urine Not Detected (Not Detect); Cannabinoid Screen Urine Not Detected (Not Detect); Cocaine Screen Urine Not Detected (Not Detect); Fentanyl, urine Not Detected (Not Detect); Opiate Screen Urine Not Detected (Not Detect); Phencyclidine Screen Urine Not Detected (Not Detect)
[2021-09-14 21:19] LABS: ~Lactic Acid-LAB USE ONLY 1.4 mmol/L (0.5-2.0)
[2021-09-14 21:32] LABS: Troponin-I High Sensitivity 135.8 ng/L (<3.5-35.0)
[2021-09-14 21:38] VITALS: BP 168/83; PULSE 90; RESP 20; TEMP 37.2; O2SAT 97
== END 2021-09-15 00:50 | disposition left against medical advice (07) ==
PROVIDERS: Nurse Practitioner Family; Emergency Provider Internal Medicine; PCP Nurse Practitioner Family
DX: R07.9 Chest pain, unspecified (principal); E87.2 Acidosis; J18.9 Pneumonia, unspecified organism; R77.8 Other specified abnormalities of plasma proteins; R06.02 Shortness of breath; Z20.822 Contact with and (suspected) exposure to COVID-19; E11.9 Type 2 diabetes mellitus without complications; E78.5 Hyperlipidemia, unspecified; I10 Essential (primary) hypertension; Z79.02 Long term (current) use of antithrombotics/antiplatelets; Z79.4 Long term (current) use of insulin; Z79.899 Other long term (current) drug therapy
CPT/HCPCS: 36415; 71045; 80048; 80076; 80307; 81003; 82077; 83605; 83690; 83735; 83880; 84484; 85025; 85610; 87040; 87635; 93005; 96365; 96367; 99284; 99285; J0456; J0696

== ENCOUNTER → 2021-11-14 08:15 | Outpatient (BNVA) | payer MEDICARE, MEDICAID, SELFPAY | PROVIDERS: PCP Nurse Practitioner Family; Referring Provider Nurse Practitioner Family; Visit Provider Internal Medicine | DX: Z13.89 Encounter for screening for other disorder (principal) | CPT/HCPCS: 93005; 99202 ==

== ENCOUNTER → 2021-11-14 10:12 | Outpatient (REF) | payer MEDICARE, MEDICAID, SELFPAY ==
--- NOTE | 2021-11-14 10:23 | CA_ITS ---
Transthoracic Echocardiogram Patient (Last, First, Middle): Isaias Ashley P Gender: Male Date of : 1955 Age: 66 Procedure Date: 11/14/2021 Procedure Type: Transthoracic Echocardiogram Location: OP Height: 162.56 cm Weight: 85.73 kg BSA: 1.91 m2 Heart Rate: bpm BP: 124 / 68 mmHg Gold Prospector: TO/YR Referring MD: Winston Ramirez MD Continuous Pickling Line Pickler: Chava Bernabe MD Symptoms: R07.89, R77.8 R94.31 CHEST PAIN ABNORMAL PLASMA PROTEINS AB Study Quality: Fair ECG Rhythm: Sinus Conclusions: - 1. Normal LV systolic function with grade 1 diastolic dysfunction 2. Normal cardiac valvular Doppler 3. Normal RV systolic pressure 4. No gross pericardial effusion Findings Left Ventricle Normal left ventricular size, thickness, and systolic function. The visually estimated ejection fraction is between 55-60%. Spectral Doppler is indicative of an impaired relaxation filling pattern. E/E prime ratio is <8, consistent with normal filling pressures. Evidence suggests grade I (mild) diastolic dysfunction. Right Ventricle Normal right ventricular cavity size and systolic function. Atria The left atrium is normal in size. There is lipomatous hypertrophy of the interatrial septum. Interatrial shunt cannot be excluded. The right atrium is normal in size. Aortic Valve Normal aortic valve structure and function. There is no aortic valve stenosis. There is no aortic valve regurgitation. Mitral Valve Likely normal mitral valve structure and function. There is trace mitral valve regurgitation. There is no mitral valve stenosis. Pulmonic Valve The pulmonic valve was not well visualized. Tricuspid Valve Likely normal tricuspid valve structure and function. There is trace tricuspid valve regurgitation. The right ventricular systolic pressure is normal. The right ventricular systolic pressure is 19 mmHg. Normal right atrial pressure. There is no evidence of pulmonary hypertension. Great Vessels All visible segments of the aorta are normal in size. The pulmonary artery was not well visualized. Venous The inferior vena cava is normal in size and collapses greater than 50% with inspiration. Pericardium/Pleural There is no evidence of pericardial effusion. Prior Study Comparison no previous study in the last 5 years for comparison Measurements 2D Linear Measurements IVSd: 0.94 0.6-0.9/0.6-1.0 cm LVIDd: 4.29 3.9-5.3/4.2-5.9 cm LVIDd Index: 2.25 2.4-3.2/2.2-3.1 cm/m2 LVIDs: 2.96 2.0-3.6 cm LVPWd: 0.97 0.7-1.1 cm LA Diam: 3.30 2.7-3.8/3.0-4.0 cm LAIDs Index: 1.73 1.5-2.3 cm/m2 LV Mass: 166.35 67-162/88-224 g LV Mass Index: 87.09 43-95/49-115 g/m2 LVOT Diam: 2.00 3.0+(-)1.3 cm 2D Systolic Function EF 4C: 57.90 >55% EF 2C: 50.50 >55% EF BiP: 55.00 >55% Mitral Valve MV Pk E: 0.68 MV PK A: 0.74 MV Decel Time: 218.00 E/A: 0.90 E'Lateral: 8.27 E'Medial: 6.74 E/E' Med: 10.10 E/E' Lat: 8.20 PHT: 64.00 MVA PHT: 3.44 Decel [place]: 3.13 Aortic Valve AoV Pk Danielito: 1.32 AoV Mn Danielito: 0.88 AoV VTI: 0.25 AoV Pk Grad: 7.00 Aov Mn Grad: 4.00 ТАТЬЯНА Cont.VTI: 2.51 LVOT LVOT Pk Danielito: 1.09 LVOT Mn Danielito: 0.66 LVOT VTI: 0.20 LVOT Pk Grad: 5.00 LVOT Mn Grad: 2.00 LVOT Diam: 2.00 LVOT Area: 3.14 Diastolic Function MV Pk E: 0.68 MV Pk A: 0.74 E/A: 0.90 E'Medial: 6.74 E/E' Med: 10.10 E' Laterial: 8.27 E/E' Lat: 8.20 Right Ventricle TAPSE (mm): 21.70 TVS' Danielito: 10.10 Tricuspid Valve TR Pk Danielito: 2.01 TR Pk Grad: 16.00 RA Press: 3.00 RVSP: 19.00 Great Vessels Aorta Sinus of Valsalva: 3.36 2.0-3.[address] [place]: 2.51 1.7-3.4 cm Ao Asc: 3.20 2.1-3.4 cm Ao Arch: 3.10 Updated in Other Vendor System with Status of Final Chava Bernabe MD electronically signed on 11/14/2021 2:13:13 PM with status of Final
[2021-11-14 12:16] LABS: Hematocrit 39.2 % (42.0-52.0); Hemoglobin 12.8 g/dl (14.0-18.0); Mean Corpuscular HGB Conc 32.7 g/dl (31.0-36.0); Mean Corpuscular Hemoglobin 29.9 pg (27.0-33.0); Mean Corpuscular Volume 91.6 fL (80.0-98.0); Mean Platelet Volume 11.5 fL (9.4-12.4); Platelet Count 179 X10*3/uL (160-400); Red Blood Count 4.28 X10*6/uL (4.60-5.80); Red Cell Distribution Width 12.8 % (11.0-16.0); White Blood Count 8.5 X10*3/uL (4.8-10.8)
[2021-11-14 12:22] LABS: INTERNATIONAL NORM RATIO 1.1 (0.9-1.1)
[2021-11-14 13:05] LABS: Anion Gap 13 (12-20); Blood Urea Nitrogen 19 mg/dL (9-16); Calcium 9.7 mg/dL (8.4-10.2); Carbon Dioxide 26 mmol/L (22-29); Chloride 105 mmol/L (96-108); Estimated Glomerular Filt Rate 49; Glucose Random 174 mg/dL (60-115); Potassium 3.9 mmol/L (3.3-5.1); Sodium 140 mmol/L (135-145)
== END ==
LOC: HO.CARD 10:12
PROVIDERS: PCP Nurse Practitioner Family; Visit Provider Internal Medicine
DX: R07.89 Other chest pain (principal); I24.1 Dressler's syndrome; R77.8 Other specified abnormalities of plasma proteins; R94.31 Abnormal electrocardiogram [ECG] [EKG]
CPT/HCPCS: 36415; 80048; 85027; 85610; 93005; 93306; 99202

== ENCOUNTER → 2021-11-28 11:51 | Outpatient (BNVA) | payer MEDICARE, MEDICAID, SELFPAY | PROVIDERS: PCP Nurse Practitioner Family; Referring Provider Nurse Practitioner Family; Visit Provider Internal Medicine | DX: I21.4 Non-ST elevation (NSTEMI) myocardial infarction (principal); I25.10 Atherosclerotic heart disease of native coronary artery without angina pectoris | CPT/HCPCS: 93005; 99212 ==

== ENCOUNTER 2022-08-09 14:28 | Outpatient (REF) | payer MEDICARE, MEDICAID, SELFPAY ==
[2022-08-09 15:57] LABS: Influenza A PCR NEGATIVE (Negative); Influenza B PCR NEGATIVE (Negative); Resp Syncy Virus RNA Qual PCR NEGATIVE (Negative); SARS COV2 PCR INHOUSE POSITIVE (Negative)
== END 2022-08-09 14:29 | disposition home or self-care (01) ==
LOC: HO.LNP 14:28
PROVIDERS: Visit Provider Physician Assistant
DX: Z20.822 Contact with and (suspected) exposure to COVID-19 (principal); B34.9 Viral infection, unspecified
CPT/HCPCS: 0241U

== ENCOUNTER 2022-08-19 14:04 | Emergency (ER) | payer MEDICARE, MEDICAID, SELFPAY ==
--- NOTE | ~2022-08-19 | XR_ITS ---
EXAMINATION: XR CHEST CLINICAL INFORMATION: Chest pain COMPARISON: 09/14/2021 TECHNIQUE: Frontal view of the chest was obtained. FINDINGS: Normal symmetric lung volumes. No parenchymal consolidation. No pleural effusion. No pneumothorax. Cardiomediastinal silhouette and pulmonary vascularity are within normal limits. Aorta is atherosclerotic. No acute osseous abnormalities. XR/XR chest 1V IMPRESSION: Clear lungs.
--- NOTE | 2022-08-19 14:11 | ECG_ITS ---
Test Reason : Chest pain Blood Pressure : / mmHG Vent. Rate : 072 BPM Atrial Rate : 072 BPM P-R Int : 160 ms QRS Dur : 076 ms QT Int : 366 ms P-R-T Axes : 049 -19 030 degrees QTc Int : 400 ms Normal sinus rhythm Nonspecific ST abnormality Abnormal ECG When compared with ECG of 14-SEP-2021 15:47, No significant change was found Referred By: Sherry Gomez Electronically Signed By:ANAND GONZALEZ MD
[2022-08-19 14:33] VITALS: BP 149/80; BP 159/100; PULSE 70; PULSE 85; RESP 16; TEMP 36.6; O2SAT 100; O2SAT 99; BMI 32.9
[2022-08-19 15:06] LABS: MANUAL DIFF FLAG NO
--- NOTE | 2022-08-19 15:07 | ED_ITS ---
HPI - Chest Pain General Chief Complaint: Chest Pain Stated Complaint: chest pain Time Seen by Provider: 08/19/22 14:57 Source: patient Mode of arrival: EMS Limitations: no limitations History of Present Illness HPI narrative: 67-year-old male with history of type 1 diabetes and reflux presents with chest pain. The pain was substernal. He describes as severe. Described also as burning in nature associated with nausea and nonbilious vomiting. It was not associated with exertion. He had similar symptoms in the past several years ago when he had a severe episode of reflux. He denied any shortness of breath, lightheadedness, arm numbness, jaw numbness or pain. Patient did take a PPI and H2 rosa prior to right denies any history of cardiac on H2 blockers and PPI in the past but has been off them for quite some time Related Data Home Medications Medication Instructions Recorded Confirmed terazosin 5 mg capsule 5 mg PO BEDTIME 03/23/20 11/28/21 blood sugar diagnostic #10 ea 04/19/20 11/28/21 aspirin 81 mg chewable tablet 81 mg PO DAILY 11/14/21 11/28/21 Previous Rx's Medication Instructions Recorded diabetic shoes #1 ea 06/13/20 ursodiol 300 mg capsule 300 mg PO BID #180 caps 08/18/21 sucralfate 1 gram tablet 1 g PO BID #30 tabs 10/29/21 clopidogrel 75 mg tablet (Plavix) 75 mg PO DAILY #90 tabs 11/28/21 pkkfee-[id number]-[id number] 1 cap PO TID 30 days #90 caps 03/15/22 15,000-47,000-63,000 unit capsule,delayed rel (Zenpep) losartan 50 mg tablet 50 mg PO DAILY #90 caps 03/21/22 alcohol swabs (Alcohol Prep Pads) 1 pad topical TID 30 days #100 ea 05/14/22 famotidine 20 mg tablet 20 mg PO BEDTIME 30 days #30 tabs 06/13/22 potassium chloride 10 mEq 10 meq PO DAILY 90 days #90 tabs 06/13/22 tablet,extended release levothyroxine 112 mcg tablet 112 mcg PO DAILY #90 caps 06/17/22 pravastatin 80 mg tablet 80 mg PO DAILY 90 days #90 caps 07/15/22 insulin human U-100 NPH-regulr See Rx Instructions subcut DAILY 08/02/22 70-30 mix 100 unit/mL subcutaneous 90 days #80 mL susp (Novolin 70/30 U-100 Insulin) insulin syringe-needle U-100 1 mL #100 ea 08/02/22 30 gauge x 1/2 blood sugar diagnostic (Accu-Chek 1 strip miscellaneous TID for 08/12/22 Soo Plus test strips) diabetes mellitus 90 days #100 ea hydrochlorothiazide 25 mg tablet 25 mg PO QAM 90 days #90 tabs 08/12/22 metoprolol tartrate 50 mg tablet 50 mg PO BID #180 caps 08/12/22 esomeprazole magnesium 40 mg 40 mg PO DAILY 90 days #90 caps 08/19/22 capsule,delayed release Allergies Allergy/AdvReac Type Severity Reaction Status Date / Time ciprofloxacin [From CIPRO] Allergy Unknown UNKNOWN Verified 08/09/22 12:41 doxycycline [DOXYCYCLINE] Allergy Unknown UNKNOWN Verified 08/09/22 12:41 prednisone [PREDNISONE] Allergy Unknown UNKNOWN Verified 08/09/22 12:41 NUMBING MEDICATION Allergy Severe HEART Uncoded 04/30/22 14:59 STOPPED From DETROL Allergy Unknown UNKNOWN Uncoded 04/30/22 14:59 From LESCOL Allergy Unknown UNKNOWN Uncoded 04/30/22 14:59 Review of Systems Review of Systems: CONSTITUTIONAL: Denies weight loss, fever and chills. HEENT: Denies changes in vision and hearing. RESPIRATORY: Denies SOB and cough. CV: Denies palpitations positive CP. GI: Denies abdominal pain, nausea, vomiting and diarrhea. : Denies dysuria and urinary frequency. MSK: Denies myalgia and joint pain. SKIN: Denies rash and pruritus. NEUROLOGICAL: Denies headache and syncope. PSYCHIATRIC: Denies recent changes in mood. Denies anxiety and depression. All other ROS are negative unless in HPI PMFSH Past Medical History Medical History Anxiety Atherosclerotic cardiovascular disease Hyperlipidemia Hypertension Pancreatitis Screening PSA (prostate specific antigen) Social History Social History Housing: Apartment Alcohol intake: unknown Patient Tobacco Use Status: Never used Tobacco e-Cigarette/Vaping Use: Never Used Second Hand Smoke Exposure: Yes Use of substances other than those prescribed or required for medical reasons: No Advance Directives: Yes Advance Directives Information Provided: No Advance Directives on File: No Current occupational status: retired Cognitive needs: No Hearing needs: No Vision needs: No Physical Exam Vital Signs: Vital Signs: Last Vital Signs Temp 97.9 F 08/19/22 14:33 Pulse 77 08/19/22 16:10 Resp 16 08/19/22 16:10 BP 137/76 08/19/22 16:10 Pulse Ox 96 08/19/22 16:10 O2 Del Method 08/19/22 16:10 BMI result Body Mass Index 32.9 GEN: Well developed, no acute distress, alert, oriented HEENT: Normocephalic, atraumatic, normal external ears, nose appears normal, no oropharyngeal edema or exudates Eyes: Normal to appearance Neck: Supple, no lymphadenopathy Respiratory: Talks in complete sentences, no respiratory distress, clear to auscultation bilaterally Cardiovascular: Regular rate and rhythm, no murmurs rubs or gallops Abdomen: Soft, nontender, nondistended, no guarding, no rebound Back: No CVA tenderness Extremities: No clubbing cyanosis or edema Neurologic: No focal neurologic deficits, cranial nerves 2-12 intact, strength is 5/5 bilaterally, gait normal Skin: No rash Course Course Course Narrative: 67-year-old male with history of reflux, type 1 diabetes presents with chest pain. Chest pain was severe and burning in nature. The last 1 hour was not associated with exertion. His symptoms have not recurred. Examination was unremarkable. EKG was nonischemic. There are nonspecific T-wave changes noted multiple leads. However, there are no acute ST elevations or depressions. Broad differential diagnosis been considered. Laboratory analysis, chest x-ray, EKG will be undertaken. Will likely need 2 sets cardiac enzymes given age and risk factors. His symptoms are most consistent with reflux. As he is asym ptomatic no further medications will be given at this time. Reevaluation(s) Reevaluation #1: I was able to review patient's cardiac catheterization from last year. Appears he has diffuse LAD disease in RCA stenosis. At this point, would consider contacting patient's senior network engineer term and appropriateness for hospitalization versus home. He it appears you may have been referred to cardiac surgery for bypass grafts. Reevaluation #2: I have been in contact over tiger text with his senior network engineer. The recommendation is for hospitalization. Patient is a candidate for bypass surgery. After discussion with the patient, he is not anxious today in the hospital. It is likely he will leave against medical advice. He is aware of the risk of cardiac . A 2nd set of cardiac enzymes has been ordered. This was given time to think about making the appropriate choice. Reevaluation #3: Patient's 2nd cardiac enzyme came back positive. Patient is having a non ST elevation MD. Patient wishes to leave against medical advice. I discussed the risks of bleeding which included a very good chance of sudden cardiac . He is also aware that he may suffer permanent cardiac damage which could lead to congestive heart failure, cardiac dysrhythmia or other serious comorbidity. Despite this, patient still adamantly would like to leave at this time. Time: 17:30 Medical Decision Making Medical Decision Making [facility] Narrative: Patient presents with chest pain. Chest pain is burning in nature, severe. Is not associated with exertion is more atypical in nature. Examination was benign. EKG was nonischemic. Patient will have a comprehensive workup. Broad differential diagnosis is being considered at this time I suspect patient will likely be able to be discharged with follow-up, restarting a PPI Differential Diagnosis Differential Diagnoses: The differential diagnosis associated with the presentation includes (Atypical chest pain, musculoskeletal chest pain, chest wall pain, myocardial infarction, pericarditis, myocarditis, anxiety, stress, reflux, pneumonia, pulmonary embolus, dissection) Non ST elevation myocardial infarction Admission/Observation Consideration of admission/observation: Escalation of care including admission/observation considered Lab Data [facility] Lab Attestation statement: I reviewed the patient's lab results. 08/19/22 14:53 08/19/22 14:53 Labs: Lab Results 08/19/22 08/19/22 08/19/22 Range/Units 14:53 14:53 14:53 WBC 8.6 (4.8-10.8) X10*3/uL RBC 4.14 L (4.60-5.80) X10*6/uL Hgb 12.4 L (14.0-18.0) g/dl Hct 37.2 L (42.0-52.0) % MCV 89.9 (80.0-98.0) fL MCH 30.0 (27.0-33.0) pg MCHC 33.3 (31.0-36.0) g/dl RDW 13.2 (11.0-16.0) % Plt Count 167 (160-400) X10*3/uL MPV 11.3 (9.4-12.4) fL Immature Gran % (Auto) 0.5 H (0.0-0.4) % Neut % (Auto) 83.9 H (45-73) % Lymph % (Auto) 10.5 L (20-40) % [place] % (Auto) 4.1 (2-11) % Eos % (Auto) 0.8 (0-4) % Baso % (Auto) 0.2 (0-2) % Lymph # (Auto) 0.9 L (1.2-4.9) X10*3/uL [place] # (Auto) 0.4 (0.1-1.2) X10*3/uL Eos # (Auto) 0.1 (0.0-0.4) X10*3/uL Baso # (Auto) 0.0 (0.0-0.2) X10*3/uL Abs Immat Gran (auto) 0.04 H (0.00-0.03) X10*3/uL Absolute Neuts (auto) 7.2 (2.0-8.3) x10*3/uL Absolute Nucleated RBC 0.000 (0.0-0.012) X10*3/uL Nucleated RBC % (auto) 0.0 (0.0-0.2) /100WBC Sodium 142 (135-145) mmol/L Potassium 4.2 (3.3-5.1) mmol/L Chloride 105 (96-108) mmol/L Carbon Dioxide 28 (22-29) mmol/L Anion Gap 13 (12-20) BUN 19 H (9-16) mg/dL Creatinine 1.28 (0.5-1.4) mg/dL Estim Creat Clear Calc 55.7 Estimated GFR 56 Random Glucose 244 H (60-115) mg/dL Calcium 9.7 (8.4-10.2) mg/dL Troponin I High Sens 25.4 (<3.5-35.0) ng/L COVID-19 ([facility]) (Negative) COVID-19 Clin Com 08/19/22 08/19/22 Range/Units 14:53 16:44 WBC (4.8-10.8) X10*3/uL RBC (4.60-5.80) X10*6/uL Hgb (14.0-18.0) g/dl Hct (42.0-52.0) % MCV (80.0-98.0) fL MCH (27.0-33.0) pg MCHC (31.0-36.0) g/dl RDW (11.0-16.0) % Plt Count (160-400) X10*3/uL MPV (9.4-12.4) fL Immature Gran % (Auto) (0.0-0.4) % Neut % (Auto) (45-73) % Lymph % (Auto) (20-40) % [place] % (Auto) (2-11) % Eos % (Auto) (0-4) % Baso % (Auto) (0-2) % Lymph # (Auto) (1.2-4.9) X10*3/uL [place] # (Auto) (0.1-1.2) X10*3/uL Eos # (Auto) (0.0-0.4) X10*3/uL Baso # (Auto) (0.0-0.2) X10*3/uL Abs Immat Gran (auto) (0.00-0.03) X10*3/uL Absolute Neuts (auto) (2.0-8.3) x10*3/uL Absolute Nucleated RBC (0.0-0.012) X10*3/uL Nucleated RBC % (auto) (0.0-0.2) /100WBC Sodium (135-145) mmol/L Potassium (3.3-5.1) mmol/L Chloride (96-108) mmol/L Carbon Dioxide (22-29) mmol/L Anion Gap (12-20) BUN (9-16) mg/dL Creatinine (0.5-1.4) mg/dL Estim Creat Clear Calc Estimated GFR Random Glucose (60-115) mg/dL Calcium (8.4-10.2) mg/dL Troponin I High Sens 109.0 H* D (<3.5-35.0) ng/L COVID-19 ([facility]) Positive A (Negative) COVID-19 Clin Com See Note Independent Interpretation I performed an independent interpretation of an: EKG (Normal sinus rhythm heart rate 72, normal intervals, no acute ST elevations depressions, nonspecific T- wave changes) External Record Review External record reviewed: Other (Cardiac catheterization from 11/15/2021. Patient was noted to have diffuse LAD stenosis, RCA 70-75% stenosis) EMS report Prescription Management I considered prescription management with: Pain Medication Chronic Conditions Patient?s care impacted by: Diabetes Discharge Plan Discharge Clinical Impression: Acute non-ST elevation myocardial infarction (NSTEMI), Chest discomfort, Chest pain Patient Disposition: Left Against Medical Advice Instructions: Heart Attack (DC) Additional Instructions: You were evaluated in the emergency department today for chest pain. Your 1st set of cardiac enzymes are negative, however, your 2nd set of cardiac enzymes were elevated consistent with a heart attack. You have significant coronary artery disease as indicated by year cardiac catheterization last year. I recommended that you be admitted to the hospital for further treatment which would include blood thinning medications, cardiac consultation and possible intervention. However, you decided to leave against medical advice. The risks of leaving against medical advice include but are not limited to sudden cardiac , cardiac dysrhythmia, congestive heart failure, permanent cardiac damage, other organ damage not otherwise specified. Should your symptoms worsen, your welcome to return to the emergency department for re-evaluation. I would recommend returning by ambulance. Prescriptions: No Action (DME) diabetic shoes 0 .Route .MEDSUPPLY Qty: 1 0RF Rx Instructions: As directed for diabetes ursodiol 300 mg capsule 300 mg PO BID Qty: 180 4RF Zenpep 15,000-47,000 -63,000 unit capsule,delayed release(DR/EC) 1 cap PO TID 30 Days Qty: 90 4RF Rx Instructions: administer with meals and/or snacks losartan 50 mg tablet 50 mg PO DAILY Qty: 90 1RF alcohol swabs [Alcohol Prep Pads] Pads, Medicated 1 pad topical TID 30 Days Qty: 100 6RF potassium chloride 10 mEq tablet extended release 10 meq PO DAILY 90 Days Qty: 90 1RF famotidine 20 mg tablet 20 mg PO BEDTIME 30 Days Qty: 30 3RF levothyroxine 112 mcg tablet 112 mcg PO DAILY Qty: 90 0RF pravastatin 80 mg tablet 80 mg PO DAILY 90 Days Qty: 90 0RF (DME) insulin syringe-needle U-100 1 mL 30 gauge x 1/2 syringe See Rx Instructions .ROUTE BID Qty: 100 0RF Rx Instructions: use 1 syringe as needed for insulin injections Novolin 70/30 U-100 Insulin 100 unit/mL (70-30) suspension See Rx Instructions subcut DAILY 90 Days Qty: 80 0RF Rx Instructions: 85 units in AM and 55 units in PM subcut daily; Accu-Chek Soo Plus test strp Strip 1 strip miscellaneous TID 90 Days Qty: 100 2RF hydrochlorothiazide 25 mg tablet 25 mg PO QAM 90 Days Qty: 90 0RF metoprolol tartrate 50 mg tablet 50 mg PO BID Qty: 180 0RF esomeprazole magnesium 40 mg capsule,delayed release(DR/EC) 40 mg PO DAILY 90 Days Qty: 90 0RF terazosin 5 mg capsule 5 mg PO BEDTIME (DME) Accu-Chek Soo Plus test strp Strip See Rx Instructions Not Applicable TID Qty: 10 Rx Instructions: As directed sucralfate 1 gram tablet 1 g PO BID Qty: 30 0RF aspirin 81 mg tablet,chewable 81 mg PO DAILY clopidogrel [Plavix] 75 mg tablet 75 mg PO DAILY Qty: 90 3RF Referrals: Francisco Lynne FNP-EVE [Primary Care Provider] - 1 day Winston Ramirez MD [Physician] - 1 day
[2022-08-19 15:09] LABS: Basophils Percent Auto 0.2 % (0-2); Eosinophils Absolute Auto 0.1 X10*3/uL (0.0-0.4); Eosinophils Percent Auto 0.8 % (0-4); Hematocrit 37.2 % (42.0-52.0); Hemoglobin 12.4 g/dl (14.0-18.0); Imm Gran Abs Auto 0.04 X10*3/uL (0.00-0.03); Imm Gran Pct Auto 0.5 % (0.0-0.4); Lymphocytes Absolute Auto 0.9 X10*3/uL (1.2-4.9); Lymphocytes Percent Auto 10.5 % (20-40); Mean Corpuscular HGB Conc 33.3 g/dl (31.0-36.0); Mean Corpuscular Volume 89.9 fL (80.0-98.0); Mean Platelet Volume 11.3 fL (9.4-12.4); Monocytes Absolute Auto 0.4 X10*3/uL (0.1-1.2); Monocytes Percent Auto 4.1 % (2-11); Neutrophils Absolute Auto 7.2 x10*3/uL (2.0-8.3); Neutrophils Percent Auto 83.9 % (45-73); Platelet Count 167 X10*3/uL (160-400); Red Blood Count 4.14 X10*6/uL (4.60-5.80); Red Cell Distribution Width 13.2 % (11.0-16.0); White Blood Count 8.6 X10*3/uL (4.8-10.8)
[2022-08-19 15:20] LABS: COVID-19 Test Positive (Negative); IDNOW Serial# 16C4AD1C
[2022-08-19 15:27] LABS: Anion Gap 13 (12-20); Blood Urea Nitrogen 19 mg/dL (9-16); Calcium 9.7 mg/dL (8.4-10.2); Carbon Dioxide 28 mmol/L (22-29); Chloride 105 mmol/L (96-108); Creatinine Clr Calc Pharmacy 55.7; Estimated Glomerular Filt Rate 56; Glucose Random 244 mg/dL (60-115); Potassium 4.2 mmol/L (3.3-5.1); Sodium 142 mmol/L (135-145)
[2022-08-19 15:38] LABS: Troponin-I High Sensitivity 25.4 ng/L (<3.5-35.0)
[2022-08-19 16:10] VITALS: BP 137/76; PULSE 77; RESP 16; O2SAT 96
[2022-08-19 17:45] VITALS: BP 158/83; PULSE 81; RESP 16; TEMP 36.6; O2SAT 97
== END 2022-08-19 18:29 | disposition left against medical advice (07) ==
PROVIDERS: Emergency Provider Emergency Medicine; PCP Nurse Practitioner Family
DX: I21.4 Non-ST elevation (NSTEMI) myocardial infarction (principal); U07.1 COVID-19; R07.9 Chest pain, unspecified; E10.9 Type 1 diabetes mellitus without complications; I10 Essential (primary) hypertension; E78.5 Hyperlipidemia, unspecified; Z79.82 Long term (current) use of aspirin; Z79.899 Other long term (current) drug therapy; Z79.02 Long term (current) use of antithrombotics/antiplatelets; Z79.4 Long term (current) use of insulin
CPT/HCPCS: 36415; 71045; 80048; 84484; 85025; 87635; 93005; 99283; 99285

== ENCOUNTER 2022-08-20 12:55 | Inpatient (IN) | payer MEDICARE, MEDICAID, SELFPAY ==
--- NOTE | 2022-08-20 | ECG_ITS ---
Test Reason : ACS Blood Pressure : / mmHG Vent. Rate : 067 BPM Atrial Rate : 067 BPM P-R Int : 154 ms QRS Dur : 088 ms QT Int : 460 ms P-R-T Axes : 009 -25 -13 degrees QTc Int : 486 ms Normal sinus rhythm ST & T wave abnormality, consider anterolateral ischemia Abnormal ECG When compared with ECG of 20-AUG-2022 13:10, Premature ventricular complexes are no longer Present Referred By: Lavonne Green Electronically Signed By:ANAND GONZALEZ MD
[2022-08-20 13:02] VITALS: BP 145/87; PULSE 87; RESP 16; TEMP 36.8; O2SAT 99
--- NOTE | 2022-08-20 13:08 | ECG_ITS ---
Test Reason : cp Blood Pressure : / mmHG Vent. Rate : 080 BPM Atrial Rate : 080 BPM P-R Int : 160 ms QRS Dur : 080 ms QT Int : 416 ms P-R-T Axes : 061 -22 026 degrees QTc Int : 479 ms Sinus rhythm with frequent Premature ventricular complexes ST & T wave abnormality, consider anterior ischemia Prolonged QT Abnormal ECG When compared with ECG of 19-AUG-2022 14:41, Premature ventricular complexes are now Present T wave inversion now evident in Anterior leads QT has lengthened Referred By: Pricilla Ballard Electronically Signed By:ANAND GONZALEZ MD
--- NOTE | 2022-08-20 13:12 | ED.CHESTPAIN ---
HPI - Chest Pain General Chief Complaint: Chest Pain Stated Complaint: CP, SEEN YESTERDAY HERE, LEFT AMA PER EMS Time Seen by Provider: 08/20/22 12:58 Source: patient and EMS Mode of arrival: EMS Limitations: no limitations History of Present Illness HPI narrative: Patient comes to the emergency room complaining of chest pain. 1 hour ago, patient was cleaning his car, removing the snow, and said having substernal chest pain and substernal burning sensation, nonradiating. Of note, patient was seen here yesterday, he was diagnosed with an NSTEMI, patient left against medical advise. Patient states that since he left the hospital he was doing well until 1 hour ago. Reviewing patient's ED note from yesterday, my colleague yesterday reviewed the patient's cardiac catheterization from last year; appears he has diffuse LAD and right RCA stenosis . Symptoms patient was referred for bypass graft. Patient's extension course counselor was contacted yesterday, patient is a candidate for bypass surgery. Patient states that the only reason that he came back is because he started having chest pain again and his made him come to the hospital Related Data Home Medications Medication Instructions Recorded Confirmed terazosin 5 mg capsule 5 mg PO BEDTIME 03/23/20 08/20/22 blood sugar diagnostic #10 ea 04/19/20 11/28/21 aspirin 81 mg chewable tablet 81 mg PO DAILY 11/14/21 08/20/22 famotidine 20 mg tablet 20 mg PO DAILY 08/20/22 08/20/22 insulin human U-100 NPH-regulr 55 unit subcut BEDTIME 08/20/22 08/20/22 70-30 mix 100 unit/mL subcutaneous susp (Novolin 70/30 U-100 Insulin) insulin human U-100 NPH-regulr 85 unit subcut DAILY 08/20/22 08/20/22 70-30 mix 100 unit/mL subcutaneous susp (Novolin 70/30 U-100 Insulin) pravastatin 80 mg tablet 80 mg PO BEDTIME 08/20/22 08/20/22 Previous Rx's Medication Instructions Recorded diabetic shoes #1 ea 06/13/20 ursodiol 300 mg capsule 300 mg PO BID #180 caps 08/18/21 fugdcn-[id number] 1 cap PO TID 30 days #90 caps 03/15/22 15,000-47,000-63,000 unit capsule,delayed rel (Zenpep) losartan 50 mg tablet 50 mg PO DAILY #90 caps 03/21/22 potassium chloride 10 mEq 10 meq PO DAILY 90 days #90 tabs 06/13/22 tablet,extended release levothyroxine 112 mcg tablet 112 mcg PO DAILY #90 caps 06/17/22 insulin syringe-needle U-100 1 mL #100 ea 08/02/22 30 gauge x 1/2 hydrochlorothiazide 25 mg tablet 25 mg PO QAM 90 days #90 tabs 08/12/22 metoprolol tartrate 50 mg tablet 50 mg PO BID #180 caps 08/12/22 esomeprazole magnesium 40 mg 40 mg PO DAILY 90 days #90 caps 08/19/22 capsule,delayed release Allergies Allergy/AdvReac Type Severity Reaction Status Date / Time ciprofloxacin [From CIPRO] Allergy Unknown UNKNOWN Verified 08/09/22 12:41 doxycycline [DOXYCYCLINE] Allergy Unknown UNKNOWN Verified 08/09/22 12:41 prednisone [PREDNISONE] Allergy Unknown UNKNOWN Verified 08/09/22 12:41 NUMBING MEDICATION Allergy Severe HEART Uncoded 04/30/22 14:59 STOPPED From DETROL Allergy Unknown UNKNOWN Uncoded 04/30/22 14:59 From LESCOL Allergy Unknown UNKNOWN Uncoded 04/30/22 14:59 Review of Systems Review of Systems: Constitutional : No Weight loss, No Fever, No Chills, No Night Sweats, No Fatigue, No Malaise ENT/Mouth : No Hearing loss, No Ear Pain, No Nasal Congestion, No Sinus Pain, No Hoarseness, No sore throat, No Rhinorrhea, No Swallowing Difficulty Eyes: No Eye Pain, No Swelling, No Redness, No Foreign Body, No Discharge, No Vision Changes Cardiovascular : Complaining of substernal burning and Chest Pain, No SOB, No Dyspnea on Exertion, No Orthopnea, No Edema, No Palpitations Respiratory : No Cough, No Sputum, No Wheezing, No Smoke Exposure, No Dyspnea Gastrointestinal : No Nausea, No Vomiting, No Diarrhea, No Constipation, No abdominal Pain, No Hematochezia, No Melena Genitourinary : no irregular bleeding, No Dysuria, No Urinary Frequency, No Hematuria, No Urinary Incontinence, No Urgency, No Flank Pain, No Urinary Flow Changes, No Hesitancy Musculoskeletal : No joint pain, No Myalgias, No Joint Swelling Skin : No Skin Lesions, No rash Neuro : No Weakness, No Numbness, No Paresthesias, No Loss of Consciousness, No Dizziness, No Headache Psych : No Anxiety/Panic, No Depression, No SI/HI/AH/VH, No Social Issues, Heme/Lymph: No Bruising, No Bleeding,No Lymphadenopathy Endocrine : No Polyuria, No Polydipsia, No Temperature Intolerance [facility] Past Medical History Medical History Anxiety Atherosclerotic cardiovascular disease Hyperlipidemia Hypertension Pancreatitis Screening PSA (prostate specific antigen) Social History Social History Housing: Apartment Alcohol intake: unknown Patient Tobacco Use Status: Never used Tobacco e-Cigarette/Vaping Use: Never Used Second Hand Smoke Exposure: Yes Advance Directives: Yes Advance Directives Information Provided: Yes Advance Directives on File: No Current occupational status: retired Cognitive needs: No Hearing needs: No Vision needs: No Physical Exam Vital Signs: Vital Signs: Last Vital Signs Temp 98.2 F 08/20/22 13:02 Pulse 87 08/20/22 13:02 Resp 16 08/20/22 13:02 BP 145/87 H 08/20/22 13:02 Pulse Ox 99 08/20/22 13:02 O2 Del Method 08/20/22 13:02 BMI result Body Mass Index 30.0 Const: Other: Appearance: Alert. Oriented X3. No acute distress. Eyes: Pupils equal, round and reactive to light. ENT: Pharynx normal. Neck: Normal inspection. Neck supple. No lymph nodes noted. No crepitus CVS: Normal heart rate and rhythm. Pulses normal. Normal S1 and S2 Respiratory: No respiratory distress. Breath sounds normal. No Wheezing. No rales Abdomen: Soft and nontender. No rigidity. No distention. Skin: Skin warm and dry. Normal skin color. Normal skin turgor. Extremities: No lower extremity edema. No Lacerations. No Rash Neuro: Oriented X 3. No motor deficit. No sensory deficit. Moving all extremities. No slurred speech. CN 2 through 12 grossly intact Psych: calm, cooperative, normal affect Course Course Course Narrative: -yesterday, patient's troponin increased from 25.4 to 109.0 -patient's EKG from today shows nonspecific T-waves inversions a seen yesterday, the patient has more frequent PVCs -patient given full-dose aspirin on arrival Medications Administered Generic Name Dose Route Start Last Admin Trade Name Freq PRN Reason Stop Dose Admin Magnesium Sulfate 2 gm in 50 mls @ 25 mls/hr 08/20/22 13:51 08/20/22 14:02 Magnesium Sulfate/H2o IV 08/20/22 15:50 25 mls/hr ONCE ONE Administration Discontinued Medications Generic Name Dose Route Start Last Admin Trade Name Freq PRN Reason Stop Dose Admin Aspirin 325 mg 08/20/22 13:17 08/20/22 13:21 Aspirin Enteric Coated 325 Mg Tablet.Dr WARREN 08/20/22 13:18 325 mg ONCE ONE Administration Medical Decision Making Medical Decision Making [facility] Narrative: -patient has mild chest pain, given sublingual nitro. -magnesium 1.4, getting IV magnesium -troponin elevated, more than yesterday -EKG interpreted by me: Heart rate 80, sinus rhythm, multiple PVCs, nonspecific T-wave changes, QTC 479 -discussed the patient with our hospitalist team, patient being admitted -at this time of admission, patient is stable, blood pressure 145/87, heart rate 87, oxygen saturation 99% on room air, chest pain 3/10, getting nitro, already given full dose aspirin today Differential Diagnosis Differential Diagnoses: The differential diagnosis associated with the presentation includes (STEMI, NSTEMI, coronary artery disease) Admission/Observation Consideration of admission/observation: Escalation of care including admission/observation considered Consult Healthcare Provider Management of the patient was discussed with: Hospitalist Lab Data [facility] Lab Attestation statement: I reviewed the patient's lab results. 08/20/22 13:18 08/20/22 13:18 Labs: Lab Results 08/20/22 08/20/22 08/20/22 Range/Units 13:18 13:18 13:18 WBC 8.3 (4.8-10.8) X10*3/uL RBC 3.86 L (4.60-5.80) X10*6/uL Hgb 11.5 L (14.0-18.0) g/dl Hct 34.8 L (42.0-52.0) % MCV 90.2 (80.0-98.0) fL MCH 29.8 (27.0-33.0) pg MCHC 33.0 (31.0-36.0) g/dl RDW 13.4 (11.0-16.0) % Plt Count 159 L (160-400) X10*3/uL MPV 11.3 (9.4-12.4) fL Immature Gran % (Auto) 0.7 H (0.0-0.4) % Neut % (Auto) 77.8 H (45-73) % Lymph % (Auto) 14.8 L (20-40) % [place] % (Auto) 5.1 (2-11) % Eos % (Auto) 1.1 (0-4) % Baso % (Auto) 0.5 (0-2) % Lymph # (Auto) 1.2 (1.2-4.9) X10*3/uL [place] # (Auto) 0.4 (0.1-1.2) X10*3/uL Eos # (Auto) 0.1 (0.0-0.4) X10*3/uL Baso # (Auto) 0.0 (0.0-0.2) X10*3/uL Abs Immat Gran (auto) 0.06 H (0.00-0.03) X10*3/uL Absolute Neuts (auto) 6.4 (2.0-8.3) x10*3/uL Absolute Nucleated RBC 0.000 (0.0-0.012) X10*3/uL Nucleated RBC % (auto) 0.0 (0.0-0.2) /100WBC PT 12.1 (10.0-13.1) SEC INR 1.1 (0.9-1.1) Sodium 141 (135-145) mmol/L Potassium 3.6 (3.3-5.1) mmol/L Chloride 105 (96-108) mmol/L Carbon Dioxide 22 (22-29) mmol/L Anion Gap 18 (12-20) BUN 20 H (9-16) mg/dL Creatinine 1.33 (0.5-1.4) mg/dL Estim Creat Clear Calc 56.7 Estimated GFR 54 Random Glucose 224 H (60-115) mg/dL Calcium 9.4 (8.4-10.2) mg/dL Magnesium 1.4 L* (1.6-2.6) mg/dL Total Bilirubin 1.5 H (0.0-1.0) mg/dL Direct Bilirubin 0.3 (0.0-0.5) mg/dL AST 28 (5-37) U/L ALT 21 (0-40) U/L Alkaline Phosphatase 76 (39-117) U/L Troponin I High Sens (<3.5-35.0) ng/L B-Natriuretic Peptide (<100) pg/mL Total Protein 6.7 (6.5-8.0) g/dL Albumin 3.9 (3.5-5.0) g/dL COVID-19 (LUCAS) (Negative) COVID-19 Clin Com 08/20/22 08/20/22 08/20/22 Range/Units 13:18 13:18 13:18 WBC (4.8-10.8) X10*3/uL RBC (4.60-5.80) X10*6/uL Hgb (14.0-18.0) g/dl Hct (42.0-52.0) % MCV (80.0-98.0) fL MCH (27.0-33.0) pg MCHC (31.0-36.0) g/dl RDW (11.0-16.0) % Plt Count (160-400) X10*3/uL MPV (9.4-12.4) fL Immature Gran % (Auto) (0.0-0.4) % Neut % (Auto) (45-73) % Lymph % (Auto) (20-40) % [place] % (Auto) (2-11) % Eos % (Auto) (0-4) % Baso % (Auto) (0-2) % Lymph # (Auto) (1.2-4.9) X10*3/uL [place] # (Auto) (0.1-1.2) X10*3/uL Eos # (Auto) (0.0-0.4) X10*3/uL Baso # (Auto) (0.0-0.2) X10*3/uL Abs Immat Gran (auto) (0.00-0.03) X10*3/uL Absolute Neuts (auto) (2.0-8.3) x10*3/uL Absolute Nucleated RBC (0.0-0.012) X10*3/uL Nucleated RBC % (auto) (0.0-0.2) /100WBC PT (10.0-13.1) SEC INR (0.9-1.1) Sodium (135-145) mmol/L Potassium (3.3-5.1) mmol/L Chloride (96-108) mmol/L Carbon Dioxide (22-29) mmol/L Anion Gap (12-20) BUN (9-16) mg/dL Creatinine (0.5-1.4) mg/dL Estim Creat Clear Calc Estimated GFR Random Glucose (60-115) mg/dL Calcium (8.4-10.2) mg/dL Magnesium (1.6-2.6) mg/dL Total Bilirubin (0.0-1.0) mg/dL Direct Bilirubin (0.0-0.5) mg/dL AST (5-37) U/L ALT (0-40) U/L Alkaline Phosphatase (39-117) U/L Troponin I High Sens 452.1 H* D (<3.5-35.0) ng/L B-Natriuretic Peptide 46 (<100) pg/mL Total Protein (6.5-8.0) g/dL Albumin (3.5-5.0) g/dL COVID-19 (LUCAS) Negative (Negative) COVID-19 Clin Com See Note Critical Care Time Critical Care Time Critical Care Time: Yes Total Critical Care Time: 45 Attestation: I have personally provided critical care time. Time includes review of lab data, radiology results, discussion with consultants, and monitoring for potential decompensation. Intervention performed as documented. Discharge Plan Discharge Clinical Impression: Non-ST elevation MT (NSTEMI), Hypomagnesemia Patient Disposition: Admitted As Inpatient Prescriptions: No Action (DME) diabetic shoes 0 .Route .MEDSUPPLY Qty: 1 0RF Rx Instructions: As directed for diabetes ursodiol 300 mg capsule 300 mg PO BID Qty: 180 4RF Zenpep 15,000-47,000 -63,000 unit capsule,delayed release(DR/EC) 1 cap PO TID 30 Days Qty: 90 4RF Rx Instructions: administer with meals and/or snacks losartan 50 mg tablet 50 mg PO DAILY Qty: 90 1RF potassium chloride 10 mEq tablet extended release 10 meq PO DAILY 90 Days Qty: 90 1RF levothyroxine 112 mcg tablet 112 mcg PO DAILY Qty: 90 0RF (DME) insulin syringe-needle U-100 1 mL 30 gauge x 1/2 syringe See Rx Instructions .ROUTE BID Qty: 100 0RF Rx Instructions: use 1 syringe as needed for insulin injections hydrochlorothiazide 25 mg tablet 25 mg PO QAM 90 Days Qty: 90 0RF metoprolol tartrate 50 mg tablet 50 mg PO BID Qty: 180 0RF esomeprazole magnesium 40 mg capsule,delayed release(DR/EC) 40 mg PO DAILY 90 Days Qty: 90 0RF Novolin 70/30 U-100 Insulin 100 unit/mL (70-30) suspension 85 unit subcut DAILY Novolin 70/30 U-100 Insulin 100 unit/mL (70-30) suspension 55 unit subcut BEDTIME famotidine 20 mg tablet 20 mg PO DAILY pravastatin 80 mg tablet 80 mg PO BEDTIME terazosin 5 mg capsule 5 mg PO BEDTIME (DME) Accu-Chek Soo Plus test strp Strip See Rx Instructions Not Applicable TID Qty: 10 Rx Instructions: As directed aspirin 81 mg tablet,chewable 81 mg PO DAILY
[2022-08-20] MEDS: Aspirin Enteric Coated 325 MG TABLET.DR PO (13:21)
[2022-08-20 13:30] LABS: MANUAL DIFF FLAG NO
[2022-08-20 13:31] LABS: Basophils Percent Auto 0.5 % (0-2); Eosinophils Absolute Auto 0.1 X10*3/uL (0.0-0.4); Eosinophils Percent Auto 1.1 % (0-4); Hematocrit 34.8 % (42.0-52.0); Hemoglobin 11.5 g/dl (14.0-18.0); Imm Gran Abs Auto 0.06 X10*3/uL (0.00-0.03); Imm Gran Pct Auto 0.7 % (0.0-0.4); Lymphocytes Absolute Auto 1.2 X10*3/uL (1.2-4.9); Lymphocytes Percent Auto 14.8 % (20-40); Mean Corpuscular Hemoglobin 29.8 pg (27.0-33.0); Mean Corpuscular Volume 90.2 fL (80.0-98.0); Mean Platelet Volume 11.3 fL (9.4-12.4); Monocytes Absolute Auto 0.4 X10*3/uL (0.1-1.2); Monocytes Percent Auto 5.1 % (2-11); Neutrophils Absolute Auto 6.4 x10*3/uL (2.0-8.3); Neutrophils Percent Auto 77.8 % (45-73); Platelet Count 159 X10*3/uL (160-400); Red Blood Count 3.86 X10*6/uL (4.60-5.80); Red Cell Distribution Width 13.4 % (11.0-16.0); White Blood Count 8.3 X10*3/uL (4.8-10.8)
[2022-08-20 13:43] LABS: INTERNATIONAL NORM RATIO 1.1 (0.9-1.1); Prothrombin Time 12.1 SEC (10.0-13.1)
--- NOTE | 2022-08-20 13:43 | PHA.MEDREC ---
Pharmacy Consult ? Medication Reconciliation Pharmacy has completed the medication reconciliation. Spoke to patient who knew medications
[2022-08-20 13:47] LABS: COVID-19 Test Negative (Negative); IDNOW Serial# 16C4AD1C
[2022-08-20 13:51] LABS: Alanine Aminotransferase 21 U/L (0-40); Albumin Level 3.9 g/dL (3.5-5.0); Alkaline Phosphatase 76 U/L (39-117); Anion Gap 18 (12-20); Aspartate Amino Transferase 28 U/L (5-37); B Type Natriuretic Peptide 46 pg/mL (<100); Bilirubin Direct 0.3 mg/dL (0.0-0.5); Bilirubin Total 1.5 mg/dL (0.0-1.0); Blood Urea Nitrogen 20 mg/dL (9-16); Calcium 9.4 mg/dL (8.4-10.2); Carbon Dioxide 22 mmol/L (22-29); Chloride 105 mmol/L (96-108); Creatinine Clr Calc Pharmacy 56.7; Estimated Glomerular Filt Rate 54; Glucose Random 224 mg/dL (60-115); Magnesium 1.4 mg/dL (1.6-2.6); Potassium 3.6 mmol/L (3.3-5.1); Sodium 141 mmol/L (135-145); Total Protein 6.7 g/dL (6.5-8.0)
[2022-08-20 13:58] LABS: Troponin-I High Sensitivity 452.1 ng/L (<3.5-35.0)
[2022-08-20] MEDS: Magnesium Sulfate/H2O 2 GM/50 ML PIGGYBACK IV (14:02)
[2022-08-20 14:47] LABS: Partial Thromboplastin Time 21.4 SEC (26.0-36.4)
[2022-08-20 15:02] VITALS: BP 127/78; PULSE 79; RESP 14; TEMP 36.6; O2SAT 97
--- NOTE | 2022-08-20 15:03 | PM.IMHP ---
History of Present Illness Date of Service: 08/20/22 Attending physician on admission: Stepan Lazo Chief Complaint: chest pain 67-year-old male with history of type 1 diabetes, hypertension, hyperlipidemia, atherosclerosis, coronary artery disease, anxiety, and GERD with recent COVID-19 diagnosis on 08/09 presented to the ED earlier today via EMS for evaluation of chest pain. The patient had presented to the ED yesterday with similar complaints but left AMA as he was anxious. Yesterday, chest pain started shortly after breakfast at rest was described as a burning pressure substernally without any radiation. This lasted for several hours and resolved spontaneously. He experienced similar severe pain this morning after cleaning snow off his vehicle. He states he took 324 mg of aspirin and his called EMS. According to the patient, EMS administered another 324 mg of aspirin and gave him nitro with resolution of pain. He is currently resting comfortably and denies any chest pain. He denies any associated nausea, vomiting, reflux, jaw pain, lightheadedness, shortness of breath, diaphoresis. He does tell me he has a cardiac history but is vague with details. On review of chart patient appears to have been at the ED at [facility] in 09/14 but left AMA and then had follow up with Dr. Ramirez in 11/11 with suspicion for CAD and LAD stenosis. Tells me that he was supposed to undergo cardiac catheterization but did not make the procedure due to hypoglycemia episode. On arrival, VSS. No leukocytosis. Mild normocytic anemia with H/H 11.5/34.8%, PLT 159. Renal function baseline, electrolytes normal except for mild hypomagnesemia of 1.4. Trop-I yesterday 109.0, today 452.1. CXR yesterday unremarkable. EKG today with t-wave inversions in lateral and anterior leads (new compared to yesterday EKG) without MARTA or ST depressions. Also prolonged QT 416. In the ED, given 2g IV mag and 325mg aspirin. Heparin drip ordered. Pt to be admitted for NSTEMI. Review of Systems Review of Systems: General: No fevers, malaise, unintentional weight loss HEENT: No sore throat, nasal congestion, rhinorrhea, sinus pain, ear pain Cardiovascular: +chest pain. No palpitations, or leg edema Respiratory: No shortness of breath, wheezing, cough GI: No abdominal pain, nausea, vomiting, diarrhea, constipation, melena, hematochezia : No dysuria, hematuria, increased urinary frequency, decreased urinary output MSK: No myalgia, back pain Neuro: No headaches, weakness, paresthesias Skin: No rashes or lesions [facility] Medical History (Updated 08/20/22 @ 15:14 by JOSI Little) Anxiety Atherosclerotic cardiovascular disease COVID Hyperlipidemia Hypertension Hypothyroidism Pancreatitis Screening PSA (prostate specific antigen) Type 1 diabetes Social History Housing: Apartment Alcohol intake: unknown Patient Tobacco Use Status: Never used Tobacco e-Cigarette/Vaping Use: Never Used Second Hand Smoke Exposure: Yes Advance Directives: Yes Advance Directives Information Provided: Yes Advance Directives on File: No Current occupational status: retired Cognitive needs: No Hearing needs: No Vision needs: No Meds Allergies Allergy/AdvReac Type Severity Reaction Status Date / Time ciprofloxacin [From CIPRO] Allergy Unknown UNKNOWN Verified 08/09/22 12:41 doxycycline [DOXYCYCLINE] Allergy Unknown UNKNOWN Verified 08/09/22 12:41 prednisone [PREDNISONE] Allergy Unknown UNKNOWN Verified 08/09/22 12:41 NUMBING MEDICATION Allergy Severe HEART Uncoded 04/30/22 14:59 STOPPED From DETROL Allergy Unknown UNKNOWN Uncoded 04/30/22 14:59 From LESCOL Allergy Unknown UNKNOWN Uncoded 04/30/22 14:59 Active Medications: Current Medications Acetaminophen (Acetaminophen 325 Mg Tablet) 650 mg PO Q6H PRN PRN Reason: Pain, Mild (Pain Scale 1-3) Dextrose (Dextrose 50 % 25 Gm/50 Ml Syringe) 25 gm IVPUSH Q15M PRN; Protocol PRN Reason: per Hypoglycemia Standing Ord. Docusate Sodium (Docusate Sodium 100 Mg Capsule) 100 mg PO DAILY PRN PRN Reason: Constipation Glucose (Glucose Gel 15 Gm Gel..Gram.) 15 gm PO Q15M PRN; Protocol PRN Reason: per Hypoglycemia Standing Ord. Magnesium Sulfate (Magnesium Sulfate/H2o) 2 gm in 50 mls @ 25 mls/hr IV ONCE ONE Stop: 08/20/22 15:50 Last Admin: 08/20/22 14:02 Dose: 25 mls/hr Heparin Sodium/Sodium Chloride (Heparin Sodium,Porcine/1/2ns) 25,000 unit in 250 mls @ 0 mls/hr IVCONT .Q0M [facility]; Protocol Insulin Human Lispro (Insulin Lispro 100 Unit/Ml 3 Ml Vial) 0 unit SUBCUT QIDACHS [facility]; Protocol Ondansetron HCl (Ondansetron Hcl 4 Mg/2 Ml Vial) 4 mg IVPUSH Q8H PRN PRN Reason: Nausea and Vomiting Pharmacy Consult (Consult Rx Perform Med Rec) 1 each MISCELLANE ONCE PRN PRN Reason: Consult order Sodium Chloride (0.9 % Sodium Chloride Flush 3 Ml Syringe) 3 ml IVFLUSH QSHIFT [facility] Home Medications Medication Instructions Recorded Confirmed Last Taken Type terazosin 5 mg capsule 5 mg PO BEDTIME 03/23/20 08/20/22 08/19/22 History blood sugar diagnostic #10 ea 04/19/20 11/28/21 Unknown History aspirin 81 mg chewable tablet 81 mg PO DAILY 11/14/21 08/20/22 08/20/22 History famotidine 20 mg tablet 20 mg PO DAILY 08/20/22 08/20/22 08/20/22 History insulin human U-100 NPH-regulr 55 unit subcut BEDTIME 08/20/22 08/20/22 08/19/22 History 70-30 mix 100 unit/mL subcutaneous susp (Novolin 70/30 U-100 Insulin) insulin human U-100 NPH-regulr 85 unit subcut DAILY 08/20/22 08/20/22 08/20/22 History 70-30 mix 100 unit/mL subcutaneous susp (Novolin 70/30 U-100 Insulin) pravastatin 80 mg tablet 80 mg PO BEDTIME 08/20/22 08/20/22 08/19/22 History Physical Exam Vital Signs and Narrative: Vital Signs: Last Vital Signs Temp 98.2 F 08/20/22 13:02 Pulse 87 08/20/22 13:02 Resp 16 08/20/22 13:02 BP 145/87 H 08/20/22 13:02 Pulse Ox 99 08/20/22 13:02 O2 Del Method 08/20/22 13:02 BMI result Body Mass Index 30.0 Constitutional - Awake and Alert, No apparent distress Eyes - PERRLA, EOMI Cardiovascular - S1S2, RRR, No edema Respiratory - Normal lung expansion, Normal respiratory effort, No respiratory distress, CTA bilaterally Gastrointestinal - NT / ND; +BS; No rebound or guarding Extremities - no calf tenderness bilaterally, no swelling Skin - Warm/Dry Neurological - Alert & oriented x3, CN II-XII in tact, 5/5 strength BUE and BLE Psychological - Appropriate affect Results Labs 08/20/22 13:18 08/20/22 13:18 Labs: Laboratory Results - last 24 hr 08/20/22 08/20/22 08/20/22 13:18 13:18 13:18 MCV 90.2 MCH 29.8 MCHC 33.0 RDW 13.4 Plt Count 159 L MPV 11.3 Immature Gran % (Auto) 0.7 H Neut % (Auto) 77.8 H Lymph % (Auto) 14.8 L [place] % (Auto) 5.1 Eos % (Auto) 1.1 Baso % (Auto) 0.5 Lymph # (Auto) 1.2 [place] # (Auto) 0.4 Eos # (Auto) 0.1 Baso # (Auto) 0.0 Abs Immat Gran (auto) 0.06 H Absolute Neuts (auto) 6.4 Absolute Nucleated RBC 0.000 Nucleated RBC % (auto) 0.0 PT 12.1 INR 1.1 APTT 21.4 L Anion Gap 18 Estim Creat Clear Calc 56.7 Estimated GFR 54 Random Glucose 224 H Calcium 9.4 Magnesium 1.4 L* Total Bilirubin 1.5 H Direct Bilirubin 0.3 AST 28 ALT 21 Alkaline Phosphatase 76 Troponin I High Sens B-Natriuretic Peptide Total Protein 6.7 Albumin 3.9 COVID-19 (LUCAS) COVID-19 Clin Com 08/20/22 08/20/22 08/20/22 13:18 13:18 13:18 MCV MCH MCHC RDW Plt Count MPV Immature Gran % (Auto) Neut % (Auto) Lymph % (Auto) [place] % (Auto) Eos % (Auto) Baso % (Auto) Lymph # (Auto) [place] # (Auto) Eos # (Auto) Baso # (Auto) Abs Immat Gran (auto) Absolute Neuts (auto) Absolute Nucleated RBC Nucleated RBC % (auto) PT INR APTT Anion Gap Estim Creat Clear Calc Estimated GFR Random Glucose Calcium Magnesium Total Bilirubin Direct Bilirubin AST ALT Alkaline Phosphatase Troponin I High Sens 452.1 H* D B-Natriuretic Peptide 46 Total Protein Albumin COVID-19 (LUCAS) Negative COVID-19 Clin Com See Note Assessment and Plan (1) Non-ST elevation SD (NSTEMI): Status: Acute (2) Hypomagnesemia: Status: Acute Plan 67-year-old male with history of type 1 diabetes, hypertension, hyperlipidemia, atherosclerosis, coronary artery disease, anxiety, and GERD with recent COVID-19 diagnosis on 08/09 admitted for NSTEMI. #NSTEMI -On review of, patient was suspected of CAD with LAD stenosis, seen by Dr. Ramirez in 11/11, but no-showed his cardiac cath due to hypoglycemic episode -Trop yesterday 109.9, today 452.1. Repeat trop -EKG with t wave inversions I, II, III, V3-5 -Given 324mg asa at home, by ems, and in ED. PLT stable, monitor closely -Heparin drip initiated per protocol -Continue bb, baby asa daily. Change pravastatin to atorvastatin -Lipid profile pending -Appreciate cardiology input -Echo ordered -Admit to telemetry #Hypomagnesemia -Repleted in ED 2g IV mag -Monitor mag and BMP #Type 1 diabetes with hyperglycemia and hypoglycemia -Hgb A1c pending -Uses NPH/regular insulin at home. Change to 39 units lantus BID -Humalog on sliding scale -If hyperglycemic- consider adding 14U lispro TID with meals as well per pharmacy -Diabetic/cardiac diet -POC glucose #HTN- reasonably controlled -continue home meds #HLD -lipid profile pending -Change pravastatin to atorvastatin #GERD -continue ppi, pepcid DVt prophylaxis- on heparin Full code Pt requires inpt stay at least 2 midnights for management of NSTEMI on heparin drip per protocol requiring expert consultation and close monitoring on telemetry Time Spent With Patient Time: Total time managing care of this patient today ____ minutes. Quality Stroke Does the patient have a stroke diagnosis?: No VTE Prior VTE?: No VTE Risk Level:: Medical - moderate - high VTE Device Contraindication: Treatment Not Indicated VTE Drug Contraindication: N/A - Med Ordered
--- NOTE | 2022-08-20 15:18 | CA_ITS ---
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 Normal LV systolic function with mild LVH with impaired relaxation filling pattern with regional wall motion abnormality in RCA territory 2. Normal cardiac valvular Doppler 3. Normal RV systolic pressure 4. No gross pericardial effusion Findings Left Ventricle Normal left ventricular size and systolic function. There is mildly increased left ventricular wall thickness. The visually estimated ejection fraction is between 60-65%. Spectral Doppler is indicative of an impaired relaxation filling pattern. E/E prime ratio is between 8 and 15 consistent with indeterminate filling pressures. Wall Motion Rest Echo Findings The apex, basal inferior, apical septum, and mid inferoseptal segments are hypokinetic. All other scored wall segments showed normal motion. Right Ventricle Normal right ventricular cavity size and systolic function. Atria The left atrium is likely dilated. There is lipomatous hypertrophy of the interatrial septum. There is no evidence of interatrial shunt. The right atrium is normal in size. Aortic Valve Normal aortic valve structure and function. There is no aortic valve stenosis. There is no aortic valve regurgitation. Mitral Valve There is mild anterior and posterior mitral leaflet thickening. There is trace mitral valve regurgitation. There is no mitral valve stenosis. Pulmonic Valve The pulmonic valve was not well visualized. Tricuspid Valve Likely normal tricuspid valve structure and function. There is trace tricuspid valve regurgitation. The right ventricular systolic pressure is normal. The right ventricular systolic pressure is 20 mmHg. Normal right atrial pressure. There is no evidence of pulmonary hypertension. Great Vessels All visible segments of the aorta are normal in size. The pulmonary artery was not well visualized. Venous The inferior vena cava is normal in size and collapses greater than 50% with inspiration. Pericardium/Pleural There is no evidence of pericardial effusion. Prior Study Comparison Changes noted compared to prior study dated: 11/14/2021. regional wall motion abnormality noted Measurements 2D Linear Measurements IVSd: 1.25 0.6-0.9/0.6-1.0 cm LVIDd: 3.37 3.9-5.3/4.2-5.9 cm LVIDd Index: 1.69 2.4-3.2/2.2-3.1 cm/m2 LVIDs: 2.21 2.0-3.6 cm LVPWd: 1.35 0.7-1.1 cm Ao Root: 3.20 2.1-3.5 cm LA Diam: 2.90 2.7-3.8/3.0-4.0 cm LAIDs Index: 1.46 1.5-2.3 cm/m2 LV Mass: 181.48 67-162/88-224 g LV Mass Index: 91.20 43-95/49-115 g/m2 LVOT Diam: 2.30 3.0+(-)1.3 cm Mitral Valve MV Pk E: 0.65 MV PK A: 0.98 MV Decel Time: 240.00 E/A: 0.70 E'Lateral: 5.44 E'Medial: 6.64 E/E' Med: 9.70 E/E' Lat: 11.90 PHT: 70.00 MVA PHT: 3.14 Decel Gallia: 2.69 Aortic Valve AoV Pk Danielito: 1.22 AoV Mn Danielito: 0.75 AoV VTI: 0.25 AoV Pk Grad: 6.00 Aov Mn Grad: 3.00 ТАТЬЯНА Cont.VTI: 2.70 LVOT LVOT Pk Danielito: 0.78 LVOT Mn Danielito: 0.47 LVOT VTI: 0.16 LVOT Pk Grad: 2.00 LVOT Mn Grad: 1.00 LVOT Diam: 2.30 LVOT Area: 4.15 Diastolic Function MV Pk E: 0.65 MV Pk A: 0.98 E/A: 0.70 E'Medial: 6.64 E/E' Med: 9.70 E' Laterial: 5.44 E/E' Lat: 11.90 Right Ventricle TAPSE (mm): 28.00 TVS' Danielito: 15.00 Tricuspid Valve TR Pk Danielito: 2.07 TR Pk Grad: 17.00 RA Press: 3.00 RVSP: 20.00 Great Vessels Aorta Ao Root-2D: 3.20 2.0-3.7 cm Ao Asc: 3.10 2.1-3.4 cm Pulmonary Valve PV Pk Danielito: 1.03 Peak PV Grad: 4.00 Updated in Other Vendor System with Status of Final Chava Bernabe MD electronically signed on 08/26/2022 3:08:00 PM with status of Final
[2022-08-20 15:37] LABS: Estimated Average Glucose 180 mg/dL; Hemoglobin A1c % 7.9 %
[2022-08-20] MEDS: Nitroglycerin 0.4 MG TAB.SUBL SUBLINGUAL (15:41)
[2022-08-20] MEDS: Heparin Sodium,Porcine 5,000 UNIT/ML VIAL 3500 UNIT IVPUSH (15:41)
[2022-08-20] MEDS: Heparin Sodium,Porcine/1/2NS 25,000 UNIT/250 ML IV.SOLN 12.19 UNIT IVCONT (15:44)
[2022-08-20 15:55] LABS: Lipase < 4 U/L (8-78)
--- NOTE | 2022-08-20 16:05 | PC.NURSE ---
Alert and oriented, resp even and unlabored. IVs established in both ACs. Heparin infusing. Pt denies any pain.
[2022-08-20 16:46] LABS: Troponin-I High Sensitivity 949.2 ng/L (<3.5-35.0)
[2022-08-20 17:06] LABS: Cholesterol 139 mg/dL; HDL Cholesterol 31 mg/dL; LDL Cholesterol Calculated 53 mg/dl; Triglycerides 276 mg/dL
[2022-08-20 18:53] LABS: Glucose, Whole Blood 181 mg/dL (60-115)
[2022-08-20 20:56] LABS: Glucose, Whole Blood 124 mg/dL (60-115)
[2022-08-20] MEDS: Atorvastatin Calcium 80 MG TABLET PO (21:51)
[2022-08-20] MEDS: Doxazosin Mesylate 2 MG TABLET 4 MG PO (21:51)
[2022-08-20] MEDS: Metoprolol Tartrate 50 MG TABLET PO (21:51)
[2022-08-20] MEDS: Insulin Glargine,Hum.rec.anlog 100 UNIT/ML 10 ML VIAL 39 UNIT SUBCUT (21:52)
--- NOTE | 2022-08-20 21:54 | PC.NURSE ---
pt medicated per provider order. PTT drawn by phlebotomy.
[2022-08-20 22:08] LABS: PTT Heparin Drip 80.4 SEC (53-77.9)
[2022-08-20] MEDS: UrsodioL 300 MG CAPSULE PO (22:27)
--- NOTE | 2022-08-21 00:07 | PC.NURSE ---
I took over care of the pt at 2300. Pt stated he feels like a million bucks and seemed to be in high spirits. Pt was resting comfortably in bed, A&Ox4, GCS 15. Heparin running at 12U/hr. Pt has no complaints at this time.
[2022-08-21 00:12] VITALS: BP 136/74; PULSE 61; RESP 17; TEMP 36.7; O2SAT 98
[2022-08-21] MEDS: Acetaminophen 325 MG TABLET 650 MG PO (02:37)
--- NOTE | 2022-08-21 02:38 | PC.NURSE ---
Pt complaining of right arm pain from the fingertips to the shoulder. Pt states it is a 4/10 on the pain scale. PRN tylenol was given, aware.
[2022-08-21 04:29] LABS: MANUAL DIFF FLAG NO
[2022-08-21 04:30] LABS: Basophils Percent Auto 0.2 % (0-2); Eosinophils Absolute Auto 0.3 X10*3/uL (0.0-0.4); Eosinophils Percent Auto 2.9 % (0-4); Hematocrit 34.5 % (42.0-52.0); Hemoglobin 11.7 g/dl (14.0-18.0); Imm Gran Abs Auto 0.03 X10*3/uL (0.00-0.03); Imm Gran Pct Auto 0.3 % (0.0-0.4); Lymphocytes Absolute Auto 2.4 X10*3/uL (1.2-4.9); Lymphocytes Percent Auto 25.7 % (20-40); Mean Corpuscular HGB Conc 33.9 g/dl (31.0-36.0); Mean Corpuscular Hemoglobin 29.8 pg (27.0-33.0); Mean Corpuscular Volume 87.8 fL (80.0-98.0); Mean Platelet Volume 10.8 fL (9.4-12.4); Monocytes Absolute Auto 0.6 X10*3/uL (0.1-1.2); Monocytes Percent Auto 6.6 % (2-11); Neutrophils Absolute Auto 5.9 x10*3/uL (2.0-8.3); Neutrophils Percent Auto 64.3 % (45-73); Platelet Count 153 X10*3/uL (160-400); Red Blood Count 3.93 X10*6/uL (4.60-5.80); Red Cell Distribution Width 13.2 % (11.0-16.0); White Blood Count 9.3 X10*3/uL (4.8-10.8)
[2022-08-21 05:19] LABS: Anion Gap 16 (12-20); Blood Urea Nitrogen 19 mg/dL (9-16); Calcium 9.1 mg/dL (8.4-10.2); Carbon Dioxide 25 mmol/L (22-29); Chloride 104 mmol/L (96-108); Creatinine Clr Calc Pharmacy 65.1; Estimated Glomerular Filt Rate > 60; Glucose Random 108 mg/dL (60-115); Magnesium 1.7 mg/dL (1.6-2.6); Potassium 3.2 mmol/L (3.3-5.1); Sodium 142 mmol/L (135-145)
--- NOTE | 2022-08-21 05:23 | PC.NURSE ---
Heparin drip decreased by 2 Units/kg/hr, per protocol. No signs of bleeding or bruising present
--- NOTE | 2022-08-21 05:42 | PC.NURSE ---
Spoke with pt's who is concerned about the pt coming home. is concerned about her safety if the pt collapses on her floor again. would like case management involved. also stated that she will be communicating via phone and will call back in the evening for another update. 's work phone (after 10 AM) [phone]
[2022-08-21 06:02] VITALS: BP 129/72; PULSE 61; RESP 13; TEMP 36.9; O2SAT 97
[2022-08-21] MEDS: Levothyroxine Sodium 112 MCG TABLET PO (06:40)
[2022-08-21] MEDS: Omeprazole 20 MG CAPSULE.DR PO (06:40)
--- NOTE | 2022-08-21 07:06 | PC.NURSE ---
assumed care of patient, patient resting comfortably in bed, VSS, awaiting inpt bed
[2022-08-21 07:21] VITALS: BP 128/80; PULSE 71; RESP 12; TEMP 36.6; O2SAT 97
[2022-08-21 07:28] LABS: Glucose, Whole Blood 131 mg/dL (60-115)
[2022-08-21] MEDS: Insulin Glargine,Hum.rec.anlog 100 UNIT/ML 10 ML VIAL 39 UNIT SUBCUT (08:08)
[2022-08-21] MEDS: Potassium Chloride Packet 20 MEQ PACKET 40 MEQ PO (08:09)
[2022-08-21] MEDS: Aspirin 81 MG TAB.CHEW PO (08:09)
[2022-08-21] MEDS: Metoprolol Tartrate 50 MG TABLET PO (08:09)
[2022-08-21] MEDS: Losartan Potassium 50 MG TABLET PO (08:09)
[2022-08-21] MEDS: hydroCHLOROthiazide 25 MG TABLET PO (08:09)
[2022-08-21] MEDS: Famotidine 20 MG TABLET PO (08:09)
[2022-08-21] MEDS: UrsodioL 300 MG CAPSULE PO (08:10)
[2022-08-21] MEDS: Heparin Sodium,Porcine/1/2NS 25,000 UNIT/250 ML IV.SOLN 8.71 UNIT IVCONT (08:36)
[2022-08-21 09:13] VITALS: BP 137/93; PULSE 87; RESP 14; O2SAT 97
--- NOTE | 2022-08-21 09:37 | PC.NURSE ---
pt to be transferred to [facility] for cardiac cath, transit en route
--- NOTE | 2022-08-21 09:37 | MHC.CM.PN ---
CM ATTEMPTED TO SEE PT TWICE HOWEVER HE WAS RECEIVING NURSING CARE CM TO REVISIT
--- NOTE | 2022-08-21 10:18 | PM.DS ---
DS: Providers Provider Date of Service: 08/21/22 Date of admission: 08/20/22 14:55 Date of discharge: 08/21/22 [facility] Admitting clinician: Lien Hugo Attending physician on admission: Stepan Lazo Consults: 08/20/22 15:02 Consult to Cardiology Routine Consulting Provider: Chava Bernabe Reason for consultation: NSTEMI Attending physician on discharge: Stepan Lazo Discharging clinician: Lien Hugo DS: Transfer Hospital Acceptance Reason for Transfer: NSTEMI requiring cardiac catheterization Name of Facility: [facility] Accepting Provider: Dr. Moo Elizalde DS: Diagnosis Discharge Diagnosis (1) Non-ST elevation [place] (NSTEMI): Status: Acute (2) Hypomagnesemia: Status: Acute DS: Summary Hospital Course Hospital Course: HPI on admission: 67-year-old male with history of type 1 diabetes, hypertension, hyperlipidemia, atherosclerosis, coronary artery disease, anxiety, and GERD with recent COVID-19 diagnosis on 08/09 presented to the ED earlier today via EMS for evaluation of chest pain.? The patient had presented to the ED yesterday with similar complaints but left AMA as he was anxious.? Yesterday, chest pain started shortly after breakfast at rest was described as a burning pressure substernally without any radiation.? This lasted for several hours and resolved spontaneously.? He experienced similar severe pain this morning after cleaning snow off his vehicle.? He states he took 324 mg of aspirin and his called EMS.? According to the patient, EMS administered another 324 mg of aspirin and gave him nitro with resolution of pain.? He is currently resting comfortably and denies any chest pain.? He denies any associated nausea, vomiting, reflux, jaw pain, lightheadedness, shortness of breath, diaphoresis.? He does tell me he has a cardiac history but is vague with details. On review of chart patient appears to have been at the ED at [facility] in 09/14 but left AMA and then had follow up with Dr. Ramirez in 11/11 with suspicion for CAD and LAD stenosis.? Tells me that he was supposed to undergo cardiac catheterization but did not make the procedure due to hypoglycemia episode. On arrival, VSS. No leukocytosis. Mild normocytic anemia with H/H 11.5/34.8%, PLT 159. Renal function baseline, electrolytes normal except for mild hypomagnesemia of 1.4. Trop-I yesterday 109.0, today 452.1. CXR yesterday unremarkable. EKG today with t-wave inversions in lateral and anterior leads (new compared to yesterday EKG) without MARTA or ST depressions. Also prolonged QT 416. In the ED, given 2g IV mag and 325mg aspirin. Heparin drip ordered. Pt to be admitted for NSTEMI. Hospital course: Pt admitted on heparin drip for NSTEMI. Subsequent trop 949.2 -> 1656.0. Repeat EKG was without significant change from prior, still with T-wave inversions in anterior leads. TTE showed normal LV systolic function wtih mild LVH with impaired relaxation filling pattern with regional wall motion abnormality, otherwise normal. Repeat magnesium on morning of DC was 1.7 following repletion. There was also mild hypokalemia 3.2, repleted with 40meq oral KCl. Patient was counseled on multiple occasions that he is having an NSTEMI, but remained in disbelief. He was evaluated by Dr. Bernabe in cardiology who is recommend transfer to tertiary care center for cardiac catheterization. There were no recurrent episodes of chest pain, otherwise hospital course uneventful. Metoprolol 50mg was increased to TID, continued on asa 81mg daily. Pravastatin changed to high intensity statin atorvastatin 80mg daily. He has also recently had frequent hypoglycemic episodes. While admitted DM managed with lantus 39 units BID and humalog on sliding scale. No hypoglycemic episodes during admission, glucose levels controlled. A1c was measured at 7.9%. Does not have endocrinology outpt. Recommend outpt follow up with endocrinology for management of type 1 DM. Status at Discharge Functional status at discharge: independent ambulation Overall status at discharge: patient is progressing back to baseline Time Spent with Patient Time attestation: Total time managing care of this patient today ____ minutes. Discharge coordination time: Greater than 30 minutes Quality: Safe Use of Opioids Does Pt have an Active Cancer Diagnosis on the Problem List?: No Quality: Stroke Does the patient have a stroke diagnosis?: No Physical Exam Vital Signs: Vital Signs: Last Vital Signs Temp 97.8 F 08/21/22 07:21 Pulse 87 08/21/22 09:13 Resp 14 08/21/22 09:13 BP 137/93 H 08/21/22 09:13 Pulse Ox 97 08/21/22 09:13 O2 Del Method 08/21/22 09:13 BMI result Body Mass Index 30.0 Constitutional - Awake and Alert, No apparent distress Eyes - PERRLA, EOMI Cardiovascular - S1S2, RRR, No edema Respiratory - Normal lung expansion, Normal respiratory effort, No respiratory distress, CTA bilaterally Gastrointestinal - NT / ND; +BS; No rebound or guarding Extremities - no calf tenderness bilaterally, no swelling Skin - Warm/Dry Neurological - Alert & oriented x3 Psychological - Appropriate affect DS: Data Data Completed and Pending Labs on day of discharge: Laboratory Results - last 24 hr 08/20/22 08/20/22 08/20/22 13:18 13:18 13:18 WBC 8.3 RBC 3.86 L Hgb 11.5 L Hct 34.8 L MCV 90.2 MCH 29.8 MCHC 33.0 RDW 13.4 Plt Count 159 L MPV 11.3 Immature Gran % (Auto) 0.7 H Neut % (Auto) 77.8 H Lymph % (Auto) 14.8 L [place] % (Auto) 5.1 Eos % (Auto) 1.1 Baso % (Auto) 0.5 Lymph # (Auto) 1.2 [place] # (Auto) 0.4 Eos # (Auto) 0.1 Baso # (Auto) 0.0 Abs Immat Gran (auto) 0.06 H Absolute Neuts (auto) 6.4 Absolute Nucleated RBC 0.000 Nucleated RBC % (auto) 0.0 PT 12.1 INR 1.1 APTT 21.4 L aPTT Heparin Protocol Sodium 141 Potassium 3.6 Chloride 105 Carbon Dioxide 22 Anion Gap 18 BUN 20 H Creatinine 1.33 Estim Creat Clear Calc 56.7 Estimated GFR 54 POC Glucose Random Glucose 224 H Estimat Average Glucose Hemoglobin A1c % Calcium 9.4 Magnesium 1.4 L* Total Bilirubin 1.5 H Direct Bilirubin 0.3 AST 28 ALT 21 Alkaline Phosphatase 76 Troponin I High Sens B-Natriuretic Peptide Total Protein 6.7 Albumin 3.9 Triglycerides 276 Cholesterol 139 LDL Cholesterol, Calc 53 HDL Cholesterol 31 Lipase < 4 L COVID-19 (LUCAS) COVID-19 Clin Com 08/20/22 08/20/22 08/20/22 13:18 13:18 13:18 WBC RBC Hgb Hct MCV MCH MCHC RDW Plt Count MPV Immature Gran % (Auto) Neut % (Auto) Lymph % (Auto) Fill[place] % (Auto) Eos % (Auto) Baso % (Auto) Lymph # (Auto) [place] # (Auto) Eos # (Auto) Baso # (Auto) Abs Immat Gran (auto) Absolute Neuts (auto) Absolute Nucleated RBC Nucleated RBC % (auto) PT INR APTT aPTT Heparin Protocol Sodium Potassium Chloride Carbon Dioxide Anion Gap BUN Creatinine Estim Creat Clear Calc Estimated GFR POC Glucose Random Glucose Estimat Average Glucose Hemoglobin A1c % Calcium Magnesium Total Bilirubin Direct Bilirubin AST ALT Alkaline Phosphatase Troponin I High Sens 452.1 H* D B-Natriuretic Peptide 46 Total Protein Albumin Triglycerides Cholesterol LDL Cholesterol, Calc HDL Cholesterol Lipase COVID-19 (LUCAS) Negative COVID-19 [employer] Com See Note 08/20/22 08/20/22 08/20/22 13:18 16:10 18:19 WBC RBC Hgb Hct MCV MCH MCHC RDW Plt Count MPV Immature Gran % (Auto) Neut % (Auto) Lymph % (Auto) [place] % (Auto) Eos % (Auto) Baso % (Auto) Lymph # (Auto) [place] # (Auto) Eos # (Auto) Baso # (Auto) Abs Immat Gran (auto) Absolute Neuts (auto) Absolute Nucleated RBC Nucleated RBC % (auto) PT INR APTT aPTT Heparin Protocol Sodium Potassium Chloride Carbon Dioxide Anion Gap BUN Creatinine Estim Creat Clear Calc Estimated GFR POC Glucose Random Glucose Estimat Average Glucose 180 Hemoglobin A1c % 7.9 Calcium Magnesium Total Bilirubin Direct Bilirubin AST ALT Alkaline Phosphatase Troponin I High Sens 949.2 H* D 1656.0 H* D B-Natriuretic Peptide Total Protein Albumin Triglycerides Cholesterol LDL Cholesterol, Calc HDL Cholesterol Lipase COVID-19 (LUCAS) COVID-[place] 08/20/22 08/20/22 08/20/22 18:45 20:27 21:49 WBC RBC Hgb Hct MCV MCH MCHC RDW Plt Count MPV Immature Gran % (Auto) Neut % (Auto) Lymph % (Auto) [place] % (Auto) Eos % (Auto) Baso % (Auto) Lymph # (Auto) [place] # (Auto) Eos # (Auto) Baso # (Auto) Abs Immat Gran (auto) Absolute Neuts (auto) Absolute Nucleated RBC Nucleated RBC % (auto) PT INR APTT aPTT Heparin Protocol 80.4 H Sodium Potassium Chloride Carbon Dioxide Anion Gap BUN Creatinine Estim Creat Clear Calc Estimated GFR POC Glucose 181 H 124 H Random Glucose Estimat Average Glucose Hemoglobin A1c % Calcium Magnesium Total Bilirubin Direct Bilirubin AST ALT Alkaline Phosphatase Troponin I High Sens B-Natriuretic Peptide Total Protein Albumin Triglycerides Cholesterol LDL Cholesterol, Calc HDL Cholesterol Lipase COVID-19 (LUCAS) COVID-19 [email or web address] 08/21/22 08/21/22 08/21/22 04:24 04:24 04:25 WBC 9.3 RBC 3.93 L Hgb 11.7 L Hct 34.5 L MCV 87.8 MCH 29.8 MCHC 33.9 RDW 13.2 Plt Count 153 L MPV 10.8 Immature Gran % (Auto) 0.3 Neut % (Auto) 64.3 Lymph % (Auto) 25.7 Fill[place] % (Auto) 6.6 Eos % (Auto) 2.9 Baso % (Auto) 0.2 Lymph # (Auto) 2.4 Fill[place] # (Auto) 0.6 Eos # (Auto) 0.3 Baso # (Auto) 0.0 Abs Immat Gran (auto) 0.03 Absolute Neuts (auto) 5.9 Absolute Nucleated RBC 0.000 Nucleated RBC % (auto) 0.0 PT INR APTT aPTT Heparin Protocol 78.0 H Sodium 142 Potassium 3.2 L Chloride 104 Carbon Dioxide 25 Anion Gap 16 BUN 19 H Creatinine 1.16 Estim Creat Clear Calc 65.1 Estimated GFR > 60 POC Glucose Random Glucose 108 Estimat Average Glucose Hemoglobin A1c % Calcium 9.1 Magnesium 1.7 Total Bilirubin Direct Bilirubin AST ALT Alkaline Phosphatase Troponin I High Sens B-Natriuretic Peptide Total Protein Albumin Triglycerides Cholesterol LDL Cholesterol, Calc HDL Cholesterol Lipase COVID-19 (LUCAS) COVID-19 [email or web address] 08/21/22 07:19 WBC RBC Hgb Hct MCV MCH MCHC RDW Plt Count MPV Immature Gran % (Auto) Neut % (Auto) Lymph % (Auto) [place] % (Auto) Eos % (Auto) Baso % (Auto) Lymph # (Auto) [place] # (Auto) Eos # (Auto) Baso # (Auto) Abs Immat Gran (auto) Absolute Neuts (auto) Absolute Nucleated RBC Nucleated RBC % (auto) PT INR APTT aPTT Heparin Protocol Sodium Potassium Chloride Carbon Dioxide Anion Gap BUN Creatinine Estim Creat Clear Calc Estimated GFR POC Glucose 131 H Random Glucose Estimat Average Glucose Hemoglobin A1c % Calcium Magnesium Total Bilirubin Direct Bilirubin AST ALT Alkaline Phosphatase Troponin I High Sens B-Natriuretic Peptide Total Protein Albumin Triglycerides Cholesterol LDL Cholesterol, Calc HDL Cholesterol Lipase COVID-19 (LUCAS) COVID-19 Clin Com Discharge Plan Discharge Anticipated Discharge Date/Time: 08/21/22 14:01 Patient Disposition: Xfer Acute Care Hospital Discharge Diagnosis: NSTEMI Referrals: Francisco Lynne FNP- [Primary Care Provider] - 1 Week Chava Bernabe MD [Physician] - 1 Week Discharge Medications: New heparin(porcine) in 0.45% NaCl 25,000 unit/250 mL Parenteral Solution 25,000 unit continuous IV infusion .Q0M Qty: 1 0RF atorvastatin 80 mg Tablet 80 mg PO BEDTIME Qty: 1 0RF nitroglycerin [Nitrostat] 0.4 mg Tablet, Sublingual 0.4 mg sublingual Q5MX3 PRN (Reason: chest pain) Qty: 1 0RF Continued (DME) diabetic shoes 0 .Route .MEDSUPPLY Qty: 1 0RF Rx Instructions: As directed for diabetes ursodiol 300 mg capsule 300 mg PO BID Qty: 180 4RF Zenpep 15,000-47,000 -63,000 unit capsule,delayed release(DR/EC) 1 cap PO TID 30 Days Qty: 90 4RF Rx Instructions: administer with meals and/or snacks losartan 50 mg tablet 50 mg PO DAILY Qty: 90 1RF potassium chloride 10 mEq tablet extended release 10 meq PO DAILY 90 Days Qty: 90 1RF levothyroxine 112 mcg tablet 112 mcg PO DAILY Qty: 90 0RF (DME) insulin syringe-needle U-100 1 mL 30 gauge x 1/2 syringe See Rx Instructions .ROUTE BID Qty: 100 0RF Rx Instructions: use 1 syringe as needed for insulin injections hydrochlorothiazide 25 mg tablet 25 mg PO QAM 90 Days Qty: 90 0RF esomeprazole magnesium 40 mg capsule,delayed release(DR/EC) 40 mg PO DAILY 90 Days Qty: 90 0RF Novolin 70/30 U-100 Insulin 100 unit/mL (70-30) suspension 85 unit subcut DAILY Novolin 70/30 U-100 Insulin 100 unit/mL (70-30) suspension 55 unit subcut BEDTIME famotidine 20 mg tablet 20 mg PO DAILY terazosin 5 mg capsule 5 mg PO BEDTIME (DME) blood sugar diagnostic Strip See Rx Instructions Not Applicable TID Qty: 10 Rx Instructions: As directed aspirin 81 mg tablet,chewable 81 mg PO DAILY Changed metoprolol tartrate 50 mg tablet 50 mg PO TID Qty: 180 0RF Discontinued pravastatin 80 mg tablet 80 mg PO BEDTIME Discharge Orders: Discharge Order (Routine); Ordered 08/21/22 Ordered By: Lien Hugo Diet: Advance to usual diet Activity on Discharge: As tolerated Stand Alone Forms: Patient Portal Discharge page Care Plan Goals: see below Health Concerns: NSTEMI Plan of Treatment: You were admitted for an NSTEMI, or a heart attack. You were treated with IV blood thinner called heparin. You will be transferred to [facility] for further management. Continue aspirin 81 mg daily. Change metoprolol 50mg to three times daily. Stop pravastatin. You need a high intensity statin so you were placed on atorvastatin 80mg daily. Follow up with PCP and cardiology on discharge. You should also look into endocrinologists to help manage yoru diabetes given your frequent hypoglycemic episodes. Assessment: see above
[2022-08-21 10:46] LABS: Glucose, Whole Blood 252 mg/dL (60-115)
--- NOTE | 2022-08-21 11:18 | PM.CNCAR ---
History of Present Illness History of Present Illness Date of Service: 08/21/22 Requesting physician: Lien Hugo Chief complaint: NSTEMI Narrative: I was consulted to see Isaias in cardiology consultation today because of acute onset chest discomfort. Patient has been noncompliant with treatment recommendations in the past. Had a cardiac catheterization with severe 2 vessel coronary artery disease with LAD and RCA and was referred to Cardiothoracic surgery given that he is diabetic for complete revascularization. However he had at that time walked out of the surgeon's office. Subsequently was scheduled for a cardiac catheterization with PCI but did not show up. He says that he had a hypoglycemic episode at that time. However there was no follow-up by him. He has prior history of coronary artery disease as mention with diabetes insulin requiring, anxiety. Patient came to the hospital with yesterday having discomfort in the right parasternal area which he describes as burning chest pressure. He said this feels similar to acid reflux. However he came to the hospital and was then chest pain-free. EKG shows T-wave inversion in the anterolateral and anterior leads. His troponin is elevated consistent with acute coronary syndrome with high risk features. He has been started on IV heparin appropriately. Remains chest pain-free at current time. He is on high-intensity statin as well as aspirin therapy. He does not think that he had a myocardial infarction despite telling him multiple times based on the evidence of blood test as well as EKG changes. Echocardiogram shows wall motion abnormality in the RCA territory however could also be due to wall motion noted in the wrap-around LAD. Review of Systems Constitutional: Constitutional: Reports no additional constitutional complaints Eyes: Eyes: Reports no additional eye complaints Cardiovascular: Cardiovascular: Reports chest pain at rest, Denies leg edema, Denies lightheadedness, Denies Loss of Consciousness, Denies dyspnea and Denies paroxysmal nocturnal dyspnea Respiratory: Respiratory: Reports no additional respiratory complaints and Denies dyspnea Gastrointestinal: Gastrointestinal: Reports no additional gastrointestinal complaints Genitourinary: Genitourinary: Reports no additional male genitourinary complaints Musculoskeletal: Musculoskeletal: Reports no additional musculoskeletal complaints Integumentary/Breasts: Skin/Breast: Reports system reviewed and no additional complaints, except as docu Neurologic: Reports system reviewed and no additional complaints, except as documented Psychiatric: Psychiatric: Reports no additional psychiatric complaints Endocrine: Endocrine: Reports no additional endocrine complaints Hematologic/Lymphatic: Hematologic/Lymphatic: Reports no additional hematologic/lymphatic complaints Allergic/Immunologic: Allergic/Immunologic: Reports no additional allergic/immunologic complaints [facility] Past Medical History Medical History Anxiety Atherosclerotic cardiovascular disease COVID Hyperlipidemia Hypertension Hypothyroidism Pancreatitis Screening PSA (prostate specific antigen) Type 1 diabetes Social History Social History Housing: Apartment Alcohol intake: unknown Patient Tobacco Use Status: Never used Tobacco e-Cigarette/Vaping Use: Never Used Second Hand Smoke Exposure: Yes Advance Directives: Yes Advance Directives Information Provided: Yes Advance Directives on File: No Current occupational status: retired Cognitive needs: No Hearing needs: No Vision needs: No Meds Allergies Allergy/AdvReac Type Severity Reaction Status Date / Time ciprofloxacin [From CIPRO] Allergy Unknown UNKNOWN Verified 08/09/22 12:41 doxycycline [DOXYCYCLINE] Allergy Unknown UNKNOWN Verified 08/09/22 12:41 prednisone [PREDNISONE] Allergy Unknown UNKNOWN Verified 08/09/22 12:41 NUMBING MEDICATION Allergy Severe HEART Uncoded 04/30/22 14:59 STOPPED From DETROL Allergy Unknown UNKNOWN Uncoded 04/30/22 14:59 From LESCOL Allergy Unknown UNKNOWN Uncoded 04/30/22 14:59 Active Medications: Current Medications Acetaminophen (Acetaminophen 325 Mg Tablet) 650 mg PO Q6H PRN PRN Reason: Pain, Mild (Pain Scale 1-3) Last Admin: 08/21/22 02:37 Dose: 650 mg Aspirin (Aspirin 81 Mg Tab.Chew) 81 mg PO DAILY [facility], [facility] Last Admin: 08/21/22 08:09 Dose: 81 mg Atorvastatin Calcium (Atorvastatin Calcium 80 Mg Tablet) 80 mg PO BEDTIME [facility], [facility]1983 Last Admin: 08/20/22 21:51 Dose: 80 mg Dextrose (Dextrose 50 % 25 Gm/50 Ml Syringe) 25 gm IVPUSH Q15M PRN; Protocol PRN Reason: per Hypoglycemia Standing Ord. Docusate Sodium (Docusate Sodium 100 Mg Capsule) 100 mg PO DAILY PRN PRN Reason: Constipation Doxazosin Mesylate (Doxazosin Mesylate 2 Mg Tablet) 4 mg PO BEDTIME [facility] Last Admin: 08/20/22 21:51 Dose: 4 mg Famotidine (Famotidine 20 Mg Tablet) 20 mg PO DAILY [facility] Last Admin: 08/21/22 08:09 Dose: 20 mg Glucose (Glucose Gel 15 Gm Gel..Gram.) 15 gm PO Q15M PRN; Protocol PRN Reason: per Hypoglycemia Standing Ord. Heparin Sodium (Porcine) (Heparin Sodium,Porcine 5,000 Unit/Ml Vial) 3,500 unit 40 unit/kg (3500 unit) IVPUSH PROTOCOL BOLUS PRN; Protocol PRN Reason: 40 unit/kg - Heparin Protocol Heparin Sodium (Porcine) (Heparin Sodium,Porcine 5,000 Unit/Ml Vial) 7,000 unit 80 unit/kg (7000 unit) IVPUSH PROTOCOL BOLUS PRN; Protocol PRN Reason: 80 unit/kg - Heparin Protocol Hydrochlorothiazide (Hydrochlorothiazide 25 Mg Tablet) 25 mg PO DAILY [facility], [facility]; Protocol Last Admin: 08/21/22 08:09 Dose: 25 mg Heparin Sodium/Sodium Chloride (Heparin Sodium,Porcine/1/2ns) 25,000 unit in 250 mls @ 0 mls/hr IVCONT .Q0M [facility], [facility]; Protocol Last Admin: 08/21/22 08:36 Dose: 10 units/kg/hr, 8.71 mls/hr Insulin Glargine (Insulin Glargine,Hum.Rec.Anlog 100 Unit/Ml 10 Ml Vial) 39 unit SUBCUT BID [facility], [facility] Last Admin: 08/21/22 08:08 Dose: 39 unit Insulin Human Lispro (Insulin Lispro 100 Unit/Ml 3 Ml Vial) 0 unit SUBCUT QIDACHS [facility], [facility]; Protocol Last Admin: 08/21/22 08:08 Dose: Not Given Levothyroxine Sodium (Levothyroxine Sodium 112 Mcg Tablet) 112 mcg PO DAILY@0600 [facility] Last Admin: 08/21/22 06:40 Dose: 112 mcg Losartan Potassium (Losartan Potassium 50 Mg Tablet) 50 mg PO DAILY [facility]; Protocol Last Admin: 08/21/22 08:09 Dose: 50 mg Metoprolol Tartrate (Metoprolol Tartrate 50 Mg Tablet) 50 mg PO BID [facility]; Protocol Last Admin: 08/21/22 08:09 Dose: 50 mg Nitroglycerin (Nitroglycerin 0.4 Mg Tab.Subl) 0.4 mg SUBLINGUAL Q5MX3 PRN PRN Reason: chest pain Non-Formulary Medication (Yabixn-Pfdfjimz-Adcatql [Zenpep]) 1 cap PO TID [facility] Omeprazole (Omeprazole 20 Mg Capsule.Dr) 20 mg PO DAILY@0630 [facility] Last Admin: 08/21/22 06:40 Dose: 20 mg Ondansetron HCl (Ondansetron Hcl 4 Mg/2 Ml Vial) 4 mg IVPUSH Q8H PRN PRN Reason: Nausea and Vomiting Pharmacy Consult (Consult Rx Perform Med Rec) 1 each MISCELLANE ONCE PRN PRN Reason: Consult order Potassium Chloride (Potassium Chloride Er 10 Meq Capsule.Er) 10 meq PO DAILY [facility] Last Admin: 08/21/22 08:09 Dose: 10 meq Sodium Chloride (0.9 % Sodium Chloride Flush 3 Ml Syringe) 3 ml IVFLUSH QSHIFT [facility], [facility] Last Admin: 08/21/22 08:08 Dose: Not Given Ursodiol (Ursodiol 300 Mg Capsule) 300 mg PO BID [facility] Last Admin: 08/21/22 08:10 Dose: 300 mg Home Medications Medication Instructions Recorded Confirmed Last Taken Type terazosin 5 mg capsule 5 mg PO BEDTIME 03/23/20 08/20/22 08/19/22 History blood sugar diagnostic #10 ea 04/19/20 11/28/21 Unknown History aspirin 81 mg chewable tablet 81 mg PO DAILY 11/14/21 08/20/22 08/20/22 History famotidine 20 mg tablet 20 mg PO DAILY 08/20/22 08/20/22 08/20/22 History insulin human U-100 NPH-regulr 55 unit subcut BEDTIME 08/20/22 08/20/22 08/19/22 History 70-30 mix 100 unit/mL subcutaneous susp (Novolin 70/30 U-100 Insulin) insulin human U-100 NPH-regulr 85 unit subcut DAILY 08/20/22 08/20/22 08/20/22 History 70-30 mix 100 unit/mL subcutaneous susp (Novolin 70/30 U-100 Insulin) pravastatin 80 mg tablet 80 mg PO BEDTIME 08/20/22 08/20/22 08/19/22 History Physical Exam Vital Signs: Vital Signs: Last Vital Signs Temp 97.8 F 08/21/22 07:21 Pulse 87 08/21/22 09:13 Resp 14 08/21/22 09:13 BP 137/93 H 08/21/22 09:13 Pulse Ox 97 08/21/22 09:13 O2 Del Method 08/21/22 09:13 BMI result Body Mass Index 30.0 Const: General: cooperative, comfortable, no acute distress, alert, awake and anxious Nutritional Appearance: overweight Orientation/consciousness: patient oriented x3 Limitations: no limitations HEENT: Head: Yes normocephalic and Yes atraumatic Neck: Neck: Yes trachea midline, Yes supple and Yes no JVD Chest: Chest palpation & inspection: normal inspection of the chest Resp: Effort & Inspection: normal respiratory effort Auscultation: clear to auscultation bilaterally Cardio: Jugular venous distension: no JVD Palpation: normal PMI Rate: regular rate Rhythm: regular rhythm Heart sounds: S1 normal heart sound present, S2 normal heart sound present, no click, no gallops, no murmurs and no rubs GI: Auscultation: normal bowel sounds Skin: General skin exam: no rashes or lesions noted Neuro: General: patient oriented x3 and no focal motor deficits Extrem: General: Yes no clubbing, cyanosis or edema Psych: Affect: Anxious affect present Objective Labs and Meds 08/21/22 04:25 08/21/22 04:24 Lab results: Laboratory Results - last 24 hr 08/20/22 08/20/22 08/20/22 13:18 13:18 13:18 WBC 8.3 RBC 3.86 L Hgb 11.5 L Hct 34.8 L MCV 90.2 MCH 29.8 MCHC 33.0 RDW 13.4 Plt Count 159 L MPV 11.3 Immature Gran % (Auto) 0.7 H Neut % (Auto) 77.8 H Lymph % (Auto) 14.8 L [place] % (Auto) 5.1 Eos % (Auto) 1.1 Baso % (Auto) 0.5 Lymph # (Auto) 1.2 [place] # (Auto) 0.4 Eos # (Auto) 0.1 Baso # (Auto) 0.0 Abs Immat Gran (auto) 0.06 H Absolute Neuts (auto) 6.4 Absolute Nucleated RBC 0.000 Nucleated RBC % (auto) 0.0 PT 12.1 INR 1.1 APTT 21.4 L aPTT Heparin Protocol Sodium 141 Potassium 3.6 Chloride 105 Carbon Dioxide 22 Anion Gap 18 BUN 20 H Creatinine 1.33 Estim Creat Clear Calc 56.7 Estimated GFR 54 POC Glucose Random Glucose 224 H Estimat Average Glucose Hemoglobin A1c % Calcium 9.4 Magnesium 1.4 L* Total Bilirubin 1.5 H Direct Bilirubin 0.3 AST 28 ALT 21 Alkaline Phosphatase 76 Troponin I High Sens B-Natriuretic Peptide Total Protein 6.7 Albumin 3.9 Triglycerides 276 Cholesterol 139 LDL Cholesterol, Calc 53 HDL Cholesterol 31 Lipase < 4 L COVID-19 (LUCAS) COVID-19 [employer] 08/20/22 08/20/22 08/20/22 13:18 13:18 13:18 WBC RBC Hgb Hct MCV MCH MCHC RDW Plt Count MPV Immature Gran % (Auto) Neut % (Auto) Lymph % (Auto) [place] % (Auto) Eos % (Auto) Baso % (Auto) Lymph # (Auto) [place] # (Auto) Eos # (Auto) Baso # (Auto) Abs Immat Gran (auto) Absolute Neuts (auto) Absolute Nucleated RBC Nucleated RBC % (auto) PT INR APTT aPTT Heparin Protocol Sodium Potassium Chloride Carbon Dioxide Anion Gap BUN Creatinine Estim Creat Clear Calc Estimated GFR POC Glucose Random Glucose Estimat Average Glucose Hemoglobin A1c % Calcium Magnesium Total Bilirubin Direct Bilirubin AST ALT Alkaline Phosphatase Troponin I High Sens 452.1 H* D B-Natriuretic Peptide 46 Total Protein Albumin Triglycerides Cholesterol LDL Cholesterol, Calc HDL Cholesterol Lipase COVID-19 (LUCAS) Negative COVID-[employer] See Note 08/20/22 08/20/22 08/20/22 13:18 16:10 18:19 WBC RBC Hgb Hct MCV MCH MCHC RDW Plt Count MPV Immature Gran % (Auto) Neut % (Auto) Lymph % (Auto) [place] % (Auto) Eos % (Auto) Baso % (Auto) Lymph # (Auto) [place] # (Auto) Eos # (Auto) Baso # (Auto) Abs Immat Gran (auto) Absolute Neuts (auto) Absolute Nucleated RBC Nucleated RBC % (auto) PT INR APTT aPTT Heparin Protocol Sodium Potassium Chloride Carbon Dioxide Anion Gap BUN Creatinine Estim Creat Clear Calc Estimated GFR POC Glucose Random Glucose Estimat Average Glucose 180 Hemoglobin A1c % 7.9 Calcium Magnesium Total Bilirubin Direct Bilirubin AST ALT Alkaline Phosphatase Troponin I High Sens 949.2 H* D 1656.0 H* D B-Natriuretic Peptide Total Protein Albumin Triglycerides Cholesterol LDL Cholesterol, Calc HDL Cholesterol Lipase COVID-19 (LUCAS) COVID-19 [facility] 08/20/22 08/20/22 08/20/22 18:45 20:27 21:49 WBC RBC Hgb Hct MCV MCH MCHC RDW Plt Count MPV Immature Gran % (Auto) Neut % (Auto) Lymph % (Auto) [place] % (Auto) Eos % (Auto) Baso % (Auto) Lymph # (Auto) [place] # (Auto) Eos # (Auto) Baso # (Auto) Abs Immat Gran (auto) Absolute Neuts (auto) Absolute Nucleated RBC Nucleated RBC % (auto) PT INR APTT aPTT Heparin Protocol 80.4 H Sodium Potassium Chloride Carbon Dioxide Anion Gap BUN Creatinine Estim Creat Clear Calc Estimated GFR POC Glucose 181 H 124 H Random Glucose Estimat Average Glucose Hemoglobin A1c % Calcium Magnesium Total Bilirubin Direct Bilirubin AST ALT Alkaline Phosphatase Troponin I High Sens B-Natriuretic Peptide Total Protein Albumin Triglycerides Cholesterol LDL Cholesterol, Calc HDL Cholesterol Lipase COVID-19 (LUCAS) COVID-19 [facility] 08/21/22 08/21/22 08/21/22 04:24 04:24 04:25 WBC 9.3 RBC 3.93 L Hgb 11.7 L Hct 34.5 L MCV 87.8 MCH 29.8 MCHC 33.9 RDW 13.2 Plt Count 153 L MPV 10.8 Immature Gran % (Auto) 0.3 Neut % (Auto) 64.3 Lymph % (Auto) 25.7 [place] % (Auto) 6.6 Eos % (Auto) 2.9 Baso % (Auto) 0.2 Lymph # (Auto) 2.4 [place] # (Auto) 0.6 Eos # (Auto) 0.3 Baso # (Auto) 0.0 Abs Immat Gran (auto) 0.03 Absolute Neuts (auto) 5.9 Absolute Nucleated RBC 0.000 Nucleated RBC % (auto) 0.0 PT INR APTT aPTT Heparin Protocol 78.0 H Sodium 142 Potassium 3.2 L Chloride 104 Carbon Dioxide 25 Anion Gap 16 BUN 19 H Creatinine 1.16 Estim Creat Clear Calc 65.1 Estimated GFR > 60 POC Glucose Random Glucose 108 Estimat Average Glucose Hemoglobin A1c % Calcium 9.1 Magnesium 1.7 Total Bilirubin Direct Bilirubin AST ALT Alkaline Phosphatase Troponin I High Sens B-Natriuretic Peptide Total Protein Albumin Triglycerides Cholesterol LDL Cholesterol, Calc HDL Cholesterol Lipase COVID-19 (LUCAS) COVID-19 [employer] 08/21/22 08/21/22 07:19 10:42 WBC RBC Hgb Hct MCV MCH MCHC RDW Plt Count MPV Immature Gran % (Auto) Neut % (Auto) Lymph % (Auto) [place] % (Auto) Eos % (Auto) Baso % (Auto) Lymph # (Auto) [place] # (Auto) Eos # (Auto) Baso # (Auto) Abs Immat Gran (auto) Absolute Neuts (auto) Absolute Nucleated RBC Nucleated RBC % (auto) PT INR APTT aPTT Heparin Protocol Sodium Potassium Chloride Carbon Dioxide Anion Gap BUN Creatinine Estim Creat Clear Calc Estimated GFR POC Glucose 131 H 252 H Random Glucose Estimat Average Glucose Hemoglobin A1c % Calcium Magnesium Total Bilirubin Direct Bilirubin AST ALT Alkaline Phosphatase Troponin I High Sens B-Natriuretic Peptide Total Protein Albumin Triglycerides Cholesterol LDL Cholesterol, Calc HDL Cholesterol Lipase COVID-19 (LUCAS) COVID-19 Clin Com Assessment and Plan (1) Non-ST elevation ND (NSTEMI): Status: Acute Acute coronary syndrome with high risk features with elevated troponins an EKG changes in the patient with known prior significant 2 vessel coronary artery disease with wall motion abnormality on echocardiogram in the RCA territory. Most likely culprit being RCA vessel. Prior angiogram at shown significant stenosis in diffusely diseased RCA as well as significant disease in the proximal segment of mid LAD. We discussed the findings and that he is having a myocardial infarction that requires cardiac catheterization again. He continued to remain slightly combative and said he does not think he is having a myocardial infarction. I suggested that the best approach is to go ahead and do the angiogram. Discussed the risks, benefits, alternatives 2nd opinion. He continued to state a does not understand why he has to go through all this. Explain him about risk of that and recurrent myocardial infarction and congestive heart failure given now that he has acute coronary syndrome. High risk of myocardial infarction the next 30 days was discussed with him. He said he understand and then he will go to [facility] but he would never undergo open heart surgery as he does normal to stay in the hospital for 5-7 days postoperatively. He will pursue stenting if that is what can be done. I said there is possible that stenting may not be an option. For now would not loaded with dual antiplatelet agent. Continue IV heparin. Add metoprolol 25 mg b.i.d. to his regimen. Continue aspirin and high-intensity statin therapy. Can use nitrates if he has recurrent symptoms. Did discuss with [facility] for transfer for cardiac catheterization which most likely will happen tomorrow. Greater than 40 minutes was spent in managing his complex care. Time Spent With Patient Time: Total time managing care of this patient today ____ minutes. Procedures Date of Service Date of Service: 08/21/22
[2022-08-21] MEDS: Insulin Lispro 100 UNIT/ML 3 ML VIAL SUBCUT (11:27)
[2022-08-21 11:34] LABS: PTT Heparin Drip 52.3 SEC (53-77.9)
[2022-08-21] MEDS: Heparin Sodium,Porcine 5,000 UNIT/ML VIAL 3500 UNIT IVPUSH (12:40)
[2022-08-21 13:34] VITALS: BP 122/75; PULSE 82; RESP 21; TEMP 36.8; O2SAT 97
--- NOTE | 2022-08-21 13:50 | MHC.EDTECH ---
Emptied urinal x2 and emptied cammode. Pam Morse
--- NOTE | 2022-08-21 17:02 | PC.NURSE ---
pt to [facility] via [facility]
--- NOTE | 2022-08-21 17:11 | PC.NURSE ---
called [facility] ED x3 for report, was unable to get through d/t high call volume, unsuccesful.
--- NOTE | 2022-08-22 08:30 | MHC.CM.PN ---
Patient transferred to [facility] before CM assessment could be completed.
== END 2022-08-21 16:00 | disposition short-term general hospital (02) | DRG 282 ==
LOC: HO.ED 14:12 → HO.EDOVER 15:04 → HO.IMC 08-21 13:58 → HO.EDOVER 08-21 14:27
PROVIDERS: Admitting Provider Physician Assistant; Emergency Provider Emergency Medicine; PCP Nurse Practitioner Family; Visit Provider Physician Assistant
DX: I22.2 Subsequent non-ST elevation (NSTEMI) myocardial infarction (principal); I21.9 Acute myocardial infarction, unspecified; I25.10 Atherosclerotic heart disease of native coronary artery without angina pectoris; E03.9 Hypothyroidism, unspecified; E83.42 Hypomagnesemia; F41.9 Anxiety disorder, unspecified; K21.9 Gastro-esophageal reflux disease without esophagitis; E78.5 Hyperlipidemia, unspecified; E10.65 Type 1 diabetes mellitus with hyperglycemia; E10.649 Type 1 diabetes mellitus with hypoglycemia without coma; Z91.199 Patient's noncompliance with other medical treatment and regimen due to unspecified reason; Z20.822 Contact with and (suspected) exposure to COVID-19; Z86.16 Personal history of COVID-19; Z88.1 Allergy status to other antibiotic agents; Z88.8 Allergy status to other drugs, medicaments and biological substances; Z79.4 Long term (current) use of insulin; Z79.82 Long term (current) use of aspirin; Z79.890 Hormone replacement therapy; Z79.899 Other long term (current) drug therapy
CPT/HCPCS: 36415; 71045; 80048; 80061; 80076; 82947; 83036; 83690; 83735; 83880; 84484; 85025; 85610; 85730; 87635; 93005; 93306; 99283; 99285; J1643; J3475; Q9957

== ENCOUNTER → 2022-09-26 08:13 | Outpatient (BNVA) | payer MEDICARE, MEDICAID, SELFPAY | PROVIDERS: PCP Nurse Practitioner Family; Visit Provider Internal Medicine | DX: I25.10 Atherosclerotic heart disease of native coronary artery without angina pectoris (principal); E11.8 Type 2 diabetes mellitus with unspecified complications; Z95.1 Presence of aortocoronary bypass graft | CPT/HCPCS: 99212 ==

== ENCOUNTER → 2022-10-04 07:18 | Outpatient (REF) | payer MEDICARE, MEDICAID, SELFPAY ==
--- NOTE | 2022-10-04 07:22 | CA_ITS ---
Transthoracic Echocardiogram Patient (Last, First, Middle): Isaias Ashley P Gender: Male Date of : 1955 Age: 67 Procedure Date: 10/04/2022 Procedure Type: Transthoracic Echocardiogram Location: OP Height: 162.56 cm Weight: 77.11 kg BSA: 1.83 m2 Heart Rate: 81 bpm BP: 100 / 58 mmHg Hairspring Assembler: SB Referring MD: Winston Ramirez MD Waiter/Waitress Formal: Chava Bernabe MD Symptoms: I25.10 - Atherosclerotic heart disease of [place] coronary artery without... Study Quality: Adequate w contrast ECG Rhythm: Sinus Conclusions: - 1. Normal LV systolic function with mild LVH with impaired relaxation filling pattern 2. Normal cardiac valvular Dopplers 3. Normal RV systolic pressure 4. Small pericardial effusion near the left ventricle Findings Procedure Information Contrast agent, definity, is being given per protocol without apparent complications. Left Ventricle Normal left ventricular size and systolic function. There is mildly increased left ventricular wall thickness. The visually estimated ejection fraction is between 65-70%. There is paradoxical septal motion consistent with post operative status. Spectral Doppler is indicative of an impaired relaxation filling pattern. E/E prime ratio is between 8 and 15 consistent with indeterminate filling pressures. Wall Motion Rest Echo Findings The inferoseptal wall and mid anteroseptal segment are hypokinetic. All other scored wall segments showed normal motion. Right Ventricle The right ventricle was not well visualized. Atria The left atrium is likely dilated. Interatrial shunt cannot be excluded. The right atrium was not well visualized. Aortic Valve The aortic valve was not well visualized. There is mild calcification of the aortic valve. There is no aortic valve stenosis. There is no aortic valve regurgitation. Mitral Valve The mitral valve was not well visualized. There is trace mitral valve regurgitation. There is no mitral valve stenosis. Pulmonic Valve The pulmonic valve was not well visualized. Tricuspid Valve Likely normal tricuspid valve structure and function. There is trace tricuspid valve regurgitation. The right ventricular systolic pressure is normal. The right ventricular systolic pressure is 20 mmHg. Normal right atrial pressure. There is no evidence of pulmonary hypertension. Great Vessels All visible segments of the aorta are normal in size. The pulmonary artery was not well visualized. Venous The inferior vena cava is normal in size and collapses greater than 50% with inspiration. Pericardium/Pleural There is a small loculated pericardial effusion overlying the left ventricle. Prior Study Comparison Changes noted compared to prior study dated: 08/20/2022. small pericardial effusion near left ventricle noted Measurements 2D Linear Measurements IVSd: 1.17 0.6-0.9/0.6-1.0 cm LVIDd: 4.51 3.9-5.3/4.2-5.9 cm LVIDd Index: 2.46 2.4-3.2/2.2-3.1 cm/m2 LVIDs: 3.32 2.0-3.6 cm LVPWd: 1.34 0.7-1.1 cm LA Diam: 3.60 2.7-3.8/3.0-4.0 cm LAIDs Index: 1.97 1.5-2.3 cm/m2 LV Mass: 264.38 67-162/88-224 g LV Mass Index: 144.47 43-95/49-115 g/m2 LVOT Diam: 2.20 3.0+(-)1.3 cm 2D Systolic Function EF 4C: 64.50 >55% EF 2C: 73.60 >55% EF BiP: 67.90 >55% Mitral Valve MV Pk E: 0.70 MV PK A: 0.85 MV Decel Time: 184.00 E/A: 0.80 E'Lateral: 6.96 E'Medial: 4.35 E/E' Med: 16.00 E/E' Lat: 10.00 PHT: 54.00 MVA PHT: 4.07 Decel Alexander: 3.79 Aortic Valve AoV Pk Danielito: 1.12 AoV Pk Grad: 5.00 ТАТЬЯНА: 3.43 LVOT LVOT Pk Danielito: 0.99 LVOT Mn Danielito: 0.67 LVOT VTI: 0.18 LVOT Pk Grad: 4.00 LVOT Mn Grad: 2.00 LVOT Diam: 2.20 LVOT Area: 3.80 Diastolic Function MV Pk E: 0.70 MV Pk A: 0.85 E/A: 0.80 E'Medial: 4.35 E/E' Med: 16.00 E' Laterial: 6.96 E/E' Lat: 10.00 Right Ventricle TAPSE (mm): 16.50 TVS' Danielito: 11.20 Tricuspid Valve TR Pk Danielito: 2.06 TR Pk Grad: 17.00 RA Press: 3.00 RVSP: 20.00 Great Vessels Aorta Sinus of Valsalva: 3.20 2.0-3.5 cm Ao Asc: 3.30 2.1-3.4 cm Pulmonary Valve PV Pk Danielito: 1.32 Peak PV Grad: 7.00 Updated in Other Vendor System with Status of Final Chava Bernabe MD electronically signed on 10/05/2022 12:44:10 PM with status of Final
== END ==
LOC: HO.CARD 07:18
PROVIDERS: PCP Nurse Practitioner Family; Visit Provider Internal Medicine
DX: I25.10 Atherosclerotic heart disease of native coronary artery without angina pectoris (principal); Z95.1 Presence of aortocoronary bypass graft
CPT/HCPCS: 93306; Q9957

== ENCOUNTER 2022-10-15 08:39 | Outpatient (REF) | payer MEDICARE, MEDICAID, SELFPAY ==
[2022-10-15 11:26] LABS: MANUAL DIFF FLAG NO
[2022-10-15 11:40] LABS: Appearance Urine Clear; Color Urine Yellow; Glucose Urine UA Negative (Negative); Leukocyte Esterase Urine Negative (Negative); Nitrite Urine Negative (Negative); PH 5.5 (5.0-9.0); Urine Blood Negative (Negative); Urine Ketones Negative (Negative); Urine Protein Negative (Neg-Trace)
[2022-10-15 12:01] LABS: Basophils Percent Auto 0.4 % (0-2); Eosinophils Absolute Auto 0.2 X10*3/uL (0.0-0.4); Hematocrit 34.8 % (42.0-52.0); Hemoglobin 10.2 g/dl (14.0-18.0); Imm Gran Abs Auto 0.05 X10*3/uL (0.00-0.03); Imm Gran Pct Auto 0.7 % (0.0-0.4); Lymphocytes Absolute Auto 1.9 X10*3/uL (1.2-4.9); Lymphocytes Percent Auto 25.1 % (20-40); Mean Corpuscular HGB Conc 29.3 g/dl (31.0-36.0); Mean Corpuscular Hemoglobin 25.7 pg (27.0-33.0); Mean Corpuscular Volume 87.7 fL (80.0-98.0); Mean Platelet Volume 10.4 fL (9.4-12.4); Monocytes Absolute Auto 0.5 X10*3/uL (0.1-1.2); Monocytes Percent Auto 6.3 % (2-11); Neutrophils Absolute Auto 4.9 x10*3/uL (2.0-8.3); Neutrophils Percent Auto 65.5 % (45-73); Platelet Count 309 X10*3/uL (160-400); Red Blood Count 3.97 X10*6/uL (4.60-5.80); Red Cell Distribution Width 14.9 % (11.0-16.0); White Blood Count 7.5 X10*3/uL (4.8-10.8)
[2022-10-15 12:05] LABS: Estimated Average Glucose 171 mg/dL; Hemoglobin A1c % 7.6 %
[2022-10-15 12:12] LABS: Creatinine Urine 176.84 mg/dL; Microalbum/Creatinine Ratio Ur 6.2 ug/mg cr
[2022-10-15 13:18] LABS: Alanine Aminotransferase 11 U/L (0-40); Albumin Level 3.8 g/dL (3.5-5.0); Alkaline Phosphatase 114 U/L (39-117); Anion Gap 16 (12-20); Aspartate Amino Transferase 14 U/L (5-37); Bilirubin Total 0.8 mg/dL (0.0-1.0); Blood Urea Nitrogen 13 mg/dL (9-16); Calcium 8.8 mg/dL (8.4-10.2); Carbon Dioxide 26 mmol/L (22-29); Chloride 105 mmol/L (96-108); Cholesterol 91 mg/dL; Estimated Glomerular Filt Rate > 60; Glucose Fasting 209 mg/dL (60-99); HDL Cholesterol 37 mg/dL; LDL Cholesterol Calculated 30 mg/dl; Magnesium 1.6 mg/dL (1.6-2.6); Potassium 4.1 mmol/L (3.3-5.1); Sodium 143 mmol/L (135-145); Total Protein 6.4 g/dL (6.5-8.0); Triglycerides 121 mg/dL
[2022-10-15 13:37] LABS: Prostate Specific Antigen Scr 1.57 ng/mL (<0.05-4.0); TSH reflex Free T4 2.79 uIU/mL (0.32-4.0)
== END 2022-10-15 08:40 | disposition home or self-care (01) ==
LOC: HO.HMGCLDS 08:39
PROVIDERS: PCP Nurse Practitioner Family; Visit Provider Nurse Practitioner Family
DX: Z12.5 Encounter for screening for malignant neoplasm of prostate (principal); E11.8 Type 2 diabetes mellitus with unspecified complications; E83.42 Hypomagnesemia
CPT/HCPCS: 36415; 80053; 80061; 81003; 82043; 83036; 83735; 84153; 84443; 85025

== ENCOUNTER 2023-01-15 12:59 | Outpatient (AMB) | payer MEDICARE, MEDICAID, SELFPAY ==
--- NOTE | 2023-01-15 13:10 | A.OFFVIS_ITS ---
Intake Vital Signs 01/15/23 13:11 Height 5 ft 7 in Weight 179 lb 0.246 oz BMI 28.0 BP 124/66 Blood Pressure Location Lt brachial Position Sitting Pulse 83 Intake Visit Reasons: 3+ mth f/up Intake Note: 3 month follow up Rotoprinter Required: No Accompanied by: Self / Same As Patient Allergies ciprofloxacin [From CIPRO] Allergy (Unknown, Verified 01/15/23 13:13) UNKNOWN doxycycline [DOXYCYCLINE] Allergy (Unknown, Verified 01/15/23 13:13) UNKNOWN prednisone [PREDNISONE] Allergy (Unknown, Verified 01/15/23 13:13) UNKNOWN NUMBING MEDICATION Allergy (Severe, Uncoded 01/15/23 13:13) HEART STOPPED From DETROL Allergy (Unknown, Uncoded 01/15/23 13:13) UNKNOWN From LESCOL Allergy (Unknown, Uncoded 01/15/23 13:13) UNKNOWN Medication List - Last Reconciled 01/15/23 by Winston Ramirez MD aspirin 81 mg PO DAILY blood sugar diagnostic (Accu-Chek Soo Plus test strips) USE TO TEST THREE TIMES A DAY DIRECTED clopidogrel 75 mg PO DAILY [diabetic shoes As directed for diabetes] famotidine 20 mg PO DAILY hydrochlorothiazide 25 mg PO QAM 90 days insulin glargine (Basaglar KwikPen U-100 Insulin) 18 units subcut QPM insulin NPH and regular human 100 unit/mL (70-30) (Novolin 70/30 U-100 Insulin) 60 units in AM and 40 units in PM subcut daily; 90 days insulin syringe-needle U-100 use 1 syringe BID for insulin injections levothyroxine 112 mcg PO DAILY [id number] 15,000-47,000 -63,000 unit (Zenpep) 1 cap PO TID metoprolol succinate ER 50 mg PO DAILY 90 days nitroglycerin (Nitrostat) 0.4 mg sublingual [id number] PRN pantoprazole 20 mg PO DAILY potassium chloride ER 10 mEq PO DAILY 90 days pravastatin 80 mg PO BEDTIME Shower Chair shower chair with backrest terazosin 5 mg PO BEDTIME ursodiol 300 mg PO BID HPI HPI Comments History of Present Illness Details Isaias returns for follow-up for CAD/CABG. Last year, we had seen in consultation. At that time, he had an abnormal EKG and that led to cardiac catheterization showing significant 2 vessel disease in LAD and RCA. He was recommended coronary artery bypass surgery but he was absolutely adamant against it and did not pursue any further. It seems that he did not seek any further medical attention but recently had 1 further hospitalization for myocardial infarction. Subsequently, transferred to [facility] for further care. In this context, had a repeat cardiac catheterization eventually leading to bypass surgery. He is now accepting the fact that he should have had this sooner and he made a mistake. Overall, feeling good. No new complaints. [facility] Medical History Anxiety Atherosclerotic cardiovascular disease COVID Hyperlipidemia Hypertension Hypothyroidism Pancreatitis Screening PSA (prostate specific antigen) Type 1 diabetes Surgical History S/P CABG x 2 Social History Housing: Apartment Alcohol intake: unknown Patient Tobacco Use Status: Never used Tobacco e-Cigarette/Vaping Use: Never Used Second Hand Smoke Exposure: Yes Current occupational status: retired Cognitive needs: No Hearing needs: No Vision needs: No Review of Systems Const Denies weakness ENT Denies dizziness Card Denies chest pain, Denies chest pain with activity, Denies syncope, Denies rapid heart rate, Denies pedal edema, Denies edema, Denies leg edema, Denies lightheadedness, Denies palpitations, Denies dyspnea, Denies dyspnea on exertion and Denies orthopnea Resp Denies cough, Denies dyspnea and Denies dyspnea on exertion GI Denies hematochezia and Denies change in stool character Musc Denies abnormal gait, Denies muscle cramps, Denies muscle weakness, Denies numbness, Denies radiating pain into limb and Denies tingling Neuro Denies abnormal gait, Denies dizziness, Denies syncope, Denies numbness, Denies tingling and Denies weakness Endo Denies palpitations Physical Exam Vital Signs: Last Vital Signs Pulse 83 01/15/23 13:11 BP 124/66 01/15/23 13:11 BMI result Body Mass Index 28.0 Const General: comfortable and no acute distress Orientation/consciousness: patient oriented x3 HEENT Other: Unremarkable Head: Yes normal to inspection Neck Neck: Yes normal visual inspection Chest Chest palpation & inspection: normal inspection of the chest Resp Auscultation: clear to auscultation bilaterally Cardio Palpation: normal PMI Heart sounds: S1 normal heart sound present, S2 normal heart sound present, no gallops, no murmurs and no rubs GI Palpation (GI): Soft to palpation Back/Spine/Pelvis Other: unremarkable Skin General skin exam: no rashes or lesions noted Neuro General: patient oriented x3 Extrem General: Yes normal to inspection Psych Mental Status: mental status grossly normal Assessment & Plan Assessment & Plan (1) Atherosclerotic cardiovascular disease: Code(s): I25.10 - Atherosclerotic heart disease of [place] coronary artery without angina pectoris (2) S/P CABG x 2: Code(s): Z95.1 - Presence of aortocoronary bypass graft (3) Type 2 diabetes mellitus with unspecified complications: Code(s): E11.8 - Type 2 diabetes mellitus with unspecified complications Plan Status post CABG x2 August 2022. Clinically, he does not have any angina. Continue aspirin long-term. Plavix can be continued for about an year from time of bypass. Continue beta-blockers/ statins. Well controlled lipids. Last LDL 30 mg/dL. There is mention of allergy to Lipitor in the [facility] discharge summary but not clear what is the allergy. With regard to diabetes, he is on insulin. Last hemoglobin A1c is 7.6%. Follow-up in about 6-7 months. To call us with any interim concerns. Coding Level of Care Code Est Pt Level 4 (17062) Diagnoses Atherosclerotic cardiovascular disease I25.10 S/P CABG x 2 Z95.1 Type 2 diabetes mellitus with unspecified complications E11.8
[2023-01-15 13:11] VITALS: BP 124/66; PULSE 83; BMI 28.0
== END 2023-01-15 13:30 | disposition home or self-care (01) ==
PROVIDERS: PCP Nurse Practitioner Family; Visit Provider Internal Medicine
DX: I25.10 Atherosclerotic heart disease of native coronary artery without angina pectoris (principal); Z95.1 Presence of aortocoronary bypass graft; E11.8 Type 2 diabetes mellitus with unspecified complications
CPT/HCPCS: 99214

== ENCOUNTER → 2023-01-15 12:59 | Outpatient (BNVA) | payer MEDICARE, MEDICAID, SELFPAY | PROVIDERS: PCP Nurse Practitioner Family; Visit Provider Internal Medicine | DX: I25.10 Atherosclerotic heart disease of native coronary artery without angina pectoris (principal); E11.8 Type 2 diabetes mellitus with unspecified complications; Z95.1 Presence of aortocoronary bypass graft | CPT/HCPCS: 99212 ==

== ENCOUNTER 2023-01-24 08:20 | Outpatient (REF) | payer MEDICARE, MEDICAID, SELFPAY ==
[2023-01-24 11:23] LABS: MANUAL DIFF FLAG NO
[2023-01-24 11:43] LABS: Basophils Percent Auto 0.3 % (0-2); Eosinophils Absolute Auto 0.3 X10*3/uL (0.0-0.4); Eosinophils Percent Auto 4.2 % (0-4); Hematocrit 38.4 % (42.0-52.0); Hemoglobin 11.6 g/dl (14.0-18.0); Imm Gran Abs Auto 0.04 X10*3/uL (0.00-0.03); Imm Gran Pct Auto 0.6 % (0.0-0.4); Lymphocytes Absolute Auto 2.4 X10*3/uL (1.2-4.9); Lymphocytes Percent Auto 33.5 % (20-40); Mean Corpuscular HGB Conc 30.2 g/dl (31.0-36.0); Mean Corpuscular Hemoglobin 25.2 pg (27.0-33.0); Mean Corpuscular Volume 83.3 fL (80.0-98.0); Mean Platelet Volume 11.3 fL (9.4-12.4); Monocytes Absolute Auto 0.5 X10*3/uL (0.1-1.2); Monocytes Percent Auto 7.4 % (2-11); Neutrophils Absolute Auto 3.9 x10*3/uL (2.0-8.3); Platelet Count 201 X10*3/uL (160-400); Red Blood Count 4.61 X10*6/uL (4.60-5.80); Red Cell Distribution Width 16.1 % (11.0-16.0); White Blood Count 7.2 X10*3/uL (4.8-10.8)
[2023-01-24 14:52] LABS: Alanine Aminotransferase 15 U/L (0-40); Albumin Level 3.8 g/dL (3.5-5.0); Alkaline Phosphatase 91 U/L (39-117); Anion Gap 18 (12-20); Aspartate Amino Transferase 19 U/L (5-37); Bilirubin Total 0.5 mg/dL (0.0-1.0); Blood Urea Nitrogen 16 mg/dL (9-16); Calcium 9.2 mg/dL (8.4-10.2); Carbon Dioxide 23 mmol/L (22-29); Chloride 105 mmol/L (96-108); Estimated Glomerular Filt Rate > 60; Glucose Random 185 mg/dL (60-115); Potassium 3.5 mmol/L (3.3-5.1); Sodium 142 mmol/L (135-145); Total Protein 6.8 g/dL (6.5-8.0)
== END 2023-01-24 08:21 | disposition home or self-care (01) ==
LOC: HO.HMGCLDS 08:20
PROVIDERS: PCP Nurse Practitioner Family; Visit Provider Nurse Practitioner Family
DX: D64.9 Anemia, unspecified (principal)
CPT/HCPCS: 36415; 80053; 85025

== ENCOUNTER 2023-02-03 15:10 | Outpatient (AMB) | payer MEDICARE, MEDICAID, SELFPAY ==
--- NOTE | 2023-02-03 15:59 | A.OFFPC_ITS ---
Vital Signs 02/03/23 16:00 02/03/23 17:05 Height 5 ft 7 in Weight 181 lb 6 oz BMI 28.4 BP 158/82 H 138/84 Blood Pressure Location Lt brachial Lt brachial Position Sitting Sitting Pulse 87 Pulse Source Pulse Oximeter Pulse Oximetry (%) 99 Oxygen Delivery Method Room Air Intake Visit Reasons: 4m follow up Allergies ciprofloxacin [From CIPRO] Allergy (Unknown, Verified 02/03/23 18:08) UNKNOWN doxycycline [DOXYCYCLINE] Allergy (Unknown, Verified 02/03/23 18:08) UNKNOWN prednisone [PREDNISONE] Allergy (Unknown, Verified 02/03/23 18:08) UNKNOWN NUMBING MEDICATION Allergy (Severe, Uncoded 02/03/23 18:08) HEART STOPPED From DETROL Allergy (Unknown, Uncoded 02/03/23 18:08) UNKNOWN From LESCOL Allergy (Unknown, Uncoded 02/03/23 18:08) UNKNOWN Medication List - Last Reconciled 02/03/23 by VIRI GalanP- alcohol swabs (Alcohol Prep Pads) 1 pad topical TID aspirin 81 mg PO DAILY blood sugar diagnostic (Accu-Chek Soo Plus test strips) USE TO TEST THREE TIMES A DAY DIRECTED clopidogrel 75 mg PO DAILY [diabetic shoes As directed for diabetes] famotidine 20 mg PO DAILY hydrochlorothiazide 25 mg PO QAM 90 days insulin NPH and regular human 100 unit/mL (70-30) (Novolin 70/30 U-100 Insulin) 75 units in AM and 55 units in PM subcut daily; 90 days insulin syringe-needle U-100 use 1 syringe BID for insulin injections levothyroxine 112 mcg PO DAILY [id number] 15,000-47,000 -63,000 unit (Zenpep) 1 cap PO TID metoprolol succinate ER 50 mg PO DAILY 90 days pantoprazole 20 mg PO DAILY potassium chloride ER 10 mEq PO DAILY 90 days pravastatin 80 mg PO BEDTIME Shower Chair shower chair with backrest terazosin 5 mg PO BEDTIME ursodiol 300 mg PO BID Tobacco use date assessed: 02/03/23 Fall risk assessment: No Falls in past year Last assessed Fall Risk: 02/03/23 Dental Screening Dental Screen Date: 02/03/23 Did you have a dental visit in the last 12 months?: No Did you have a dental problem in the last 6 months where you did not have access to dental care?: No Was dental information given to patient?: No HPI 4m follow up HPI Details Pt is a diabetic, on a statin. A1c in office today is . Microalbumin is up to date. Denies polyuria, polydipsia, and neuropathy. Pt denies any signs and symptoms of hypoglycemia and does know how to correct it. Pt reports that his blood sugar in the morning ranges from 120-150. Eye exam is up to date. Pt follows up with cardiology. 70/30 (70 units in the am, 50 units at night). 8.2 a1c, will increase to 75 units in the am, 55 units in the pm. PFSH Medical History Anxiety Atherosclerotic cardiovascular disease COVID Hyperlipidemia Hypertension Hypothyroidism Pancreatitis Screening PSA (prostate specific antigen) Type 1 diabetes Surgical History S/P CABG x 2 Social History Housing: Apartment Alcohol intake: unknown Patient Tobacco Use Status: Never used Tobacco e-Cigarette/Vaping Use: Never Used Second Hand Smoke Exposure: Yes Current occupational status: retired Cognitive needs: No Hearing needs: No Vision needs: No Questionnaire Thrive Questionnaire Date Thrive assessed: 11/13/21 NAGI-7 AMB Questionnaire NAGI-7 Date NAGI - 7 assessed: 11/13/21 Source: Developed by Drs. Good Gonzalez, Wilda Holt, Sahil Walden and colleagues, with an educational michael from [employer]. Review of Systems Const Reports as per HPI Physical exam (Primary Care) Vital Signs: Last Vital Signs Pulse 87 02/03/23 16:00 BP 138/84 02/03/23 17:05 Pulse Ox 99 02/03/23 16:00 Oxygen Delivery Method Room Air 02/03/23 16:00 BMI result Body Mass Index 28.4 Tobacco/Smoking Status: Tobacco use Status Tobacco use date assessed 02/03/23 02/03/23 16:08 Patient Tobacco Use Status Never used Tobacco 02/03/23 16:01 e-Cigarette/Vaping Use Never Used 02/03/23 16:01 Thrive Assessment: Date of Thrive Assessment Date Thrive assessed 11/13/21 02/03/23 16:01 Const General: cooperative Orientation/consciousness: patient oriented x3 Resp Effort & Inspection: normal respiratory effort Auscultation: clear to auscultation bilaterally Cardio Rate: regular rate Rhythm: regular rhythm Heart sounds: S1 normal heart sound present and S2 normal heart sound present Neuro General: patient oriented x3 Extrem Other: bilat feet: + sensation with use of monofilament Right lower extremity: no edema Left lower extremity: no edema Psych Appearance: grossly normal Mental Status: mental status grossly normal Speech and movement: Normal speech and movement present Affect: normal affect Attitude: cooperative Thought process: Normal thought process present Thought content: Normal thought content present Insight: Good insight present (Psych) Judgement: Good judgement present (Psych) Results AMB Hemoglobin A1c AMB Hemoglobin A1c 8.2 % Last Edit by Shilpa Whitlock CMA on 02/03/23 16: 49 Results Reviewed Results Reviewed: Laboratory Last Values Hgb A1c (Clinic) 8.2 % (4.0-6.0) H 02/03/23 16:47 Assessment and Plan Assessment & Plan (1) Type 2 diabetes mellitus with unspecified complications: Code(s): E11.8 - Type 2 diabetes mellitus with unspecified complications (2) Hypomagnesemia: Code(s): E83.42 - Hypomagnesemia Plan The patient agreed to the use of a biomedical instrument technician for this encounter. Scribed for TERENCE Rosales by Davida Guan biomedical instrument technician, on 02/03/2023 at 16:20 EST. Orders: Orders Comprehensive [place]. Panel Fast Today E11.8 - Type 2 diabetes mellitus with unspecified complications Lipid Panel Today E11.8 - Type 2 diabetes mellitus with unspecified complications Magnesium Today E83.42 - Hypomagnesemia AMB Hemoglobin A1c Today E11.8 - Type 2 diabetes mellitus with unspecified complications Medications: Changed From insulin NPH and regular human 100 unit/mL (70-30) (Novolin 70/30 U-100 Insulin) 60 units in AM and 40 units in PM subcut daily; 90 days 90 mL 1RF E11.9 - Type 2 diabetes mellitus without complications To insulin NPH and regular human 100 unit/mL (70-30) (Novolin 70/30 U-100 Insulin) 75 units in AM and 55 units in PM subcut daily; 90 days 90 mL 1RF E11.9 - Type 2 diabetes mellitus without complications Coding Level of Care Code Est Pt Level 3 (73686) Diagnoses Type 2 diabetes mellitus with unspecified complications E11.8 Hypomagnesemia E83.42
[2023-02-03 16:00] VITALS: BP 158/82; PULSE 87; O2SAT 99; BMI 28.4
[2023-02-03 17:05] VITALS: BP 138/84
== END 2023-02-03 17:17 | disposition home or self-care (01) ==
PROVIDERS: Visit Provider Nurse Practitioner Family
DX: E11.8 Type 2 diabetes mellitus with unspecified complications (principal); E83.42 Hypomagnesemia
CPT/HCPCS: 83036; 99213

== ENCOUNTER 2023-02-17 08:37 | Outpatient (REF) | payer MEDICARE, MEDICAID, SELFPAY ==
[2023-02-17 12:07] LABS: Alanine Aminotransferase 20 U/L (0-40); Alkaline Phosphatase 97 U/L (39-117); Anion Gap 15 (12-20); Aspartate Amino Transferase 23 U/L (5-37); Bilirubin Total 0.5 mg/dL (0.0-1.0); Blood Urea Nitrogen 15 mg/dL (9-16); Calcium 9.4 mg/dL (8.4-10.2); Carbon Dioxide 24 mmol/L (22-29); Chloride 105 mmol/L (96-108); Cholesterol 113 mg/dL (<200); Estimated Glomerular Filt Rate 56; Glucose Fasting 201 mg/dL (60-99); HDL Cholesterol 38 mg/dL (>40); LDL Cholesterol Calculated 41 mg/dL (<100); Magnesium 1.6 mg/dL (1.6-2.6); Potassium 3.3 mmol/L (3.3-5.1); Sodium 141 mmol/L (135-145); Total Protein 7.2 g/dL (6.5-8.0); Triglycerides 174 mg/dL (<150)
== END 2023-02-17 08:38 | disposition home or self-care (01) ==
LOC: HO.HMGCLDS 08:37
PROVIDERS: PCP Nurse Practitioner Family; Visit Provider Nurse Practitioner Family
DX: E83.42 Hypomagnesemia (principal); E11.8 Type 2 diabetes mellitus with unspecified complications
CPT/HCPCS: 36415; 80053; 80061; 83735

== ENCOUNTER 2023-05-30 13:50 | Outpatient (AMB) | payer MEDICARE, MEDICAID, SELFPAY ==
[2023-05-30 14:43] VITALS: BP 120/78; PULSE 89; TEMP 36.7; O2SAT 99; BMI 30.1
--- NOTE | 2023-05-30 14:43 | MHC.OFFWIV ---
Intake Vital Signs 05/30/23 14:43 Height 5 ft 7 in Weight 87.09 kg BMI 30.1 BP 120/78 Blood Pressure Location Rt brachial Position Sitting Pulse 89 Pulse Source Pulse Oximeter Temp 98.0 F Pulse Oximetry (%) 99 Oxygen Delivery Method Room Air Intake Visit Reasons: EP, upper back pain Intake Note: pt is here today for upper back pain started this morning Patient Tobacco Use Status: Never used Tobacco Allergies ciprofloxacin [From CIPRO] Allergy (Unknown, Verified 05/30/23 14:44) UNKNOWN doxycycline [DOXYCYCLINE] Allergy (Unknown, Verified 05/30/23 14:44) UNKNOWN prednisone [PREDNISONE] Allergy (Unknown, Verified 05/30/23 14:44) UNKNOWN NUMBING MEDICATION Allergy (Severe, Uncoded 02/03/23 18:08) HEART STOPPED From DETROL Allergy (Unknown, Uncoded 02/03/23 18:08) UNKNOWN From LESCOL Allergy (Unknown, Uncoded 02/03/23 18:08) UNKNOWN Do you need a note to return to daycare/school/sports/work: No HPI HPI Comments History of Present Illness Details 1514 68-year-old male presents with upper back/neck pain status post waking up this morning, pain is worse with twisting, palpation, movement better at rest. Not sure if he slept wrong. Patient reports that he has been taking Tylenol with little relief. Denies chest pain, shortness of breath, numbness, tingling, blunt trauma, fevers, chills, headache, vision changes. On exam there is right-sided upper thoracic and cervical paraspinous tenderness. No midline tenderness. No paraspinous tenderness on the left. History and physical exam concerning for cervical and thoracic muscle spasm versus herniated disc versus strain or sprain. Unlikely fracture, dislocation, cord compression, cauda equina or epidural abscess. History and physical exam not concerning for aortic dissection, pulmonary embolism or ACS. Plan will discharge patient with Tylenol, Lidoderm patches and cyclobenzaprine. Educated patient on diagnosis and treatment plan, answered all question, patient verbalizes understanding. At this time patient will be discharged home, advised to return with new or worsening symptoms. Educated on worrisome signs and symptoms and when to return. At this time I feel comfortable discharge home. [facility] Medical History Hypothyroidism Type 1 diabetes COVID Atherosclerotic cardiovascular disease Screening PSA (prostate specific antigen) Hyperlipidemia Hypertension Anxiety Pancreatitis Surgical History S/P CABG x 2 Social History Housing: Apartment Alcohol intake: unknown Patient Tobacco Use Status: Never used Tobacco e-Cigarette/Vaping Use: Never Used Second Hand Smoke Exposure: Yes Current occupational status: retired Cognitive needs: No Hearing needs: No Vision needs: No Review of Systems Const Details: Constitutional : No Weight loss, No Fever, No Chills, No Fatigue, No Malaise ENT/Mouth : No sore throat, No Rhinorrhea Eyes: No Eye Pain, No Swelling, No Redness Cardiovascular : No Chest Pain, No SOB, No Dyspnea on Exertion, No Orthopnea, No Edema, No Palpitations Respiratory : No Cough, No Sputum, No Wheezing Gastrointestinal : No Nausea, No Vomiting, No Diarrhea, No Constipation, No abdominal Pain, No Hematochezia, No Melena Genitourinary : No Dysuria, No Urinary Frequency, No Hematuria, Musculoskeletal : No joint pain, No Myalgias, No Joint Swelling Skin : No Skin Lesions, No rash Neuro : No Weakness, No Numbness, No Dizziness, No Headache Psych : No Anxiety/Panic, No Depression All other systems reviewed and are negative All systems reviewed & are unremarkable except as noted in HPI and below Physical Exam Vital Signs: Last Vital Signs Temp 98.0 F 05/30/23 14:43 Pulse 89 05/30/23 14:43 BP 120/78 05/30/23 14:43 Pulse Ox 99 05/30/23 14:43 Oxygen Delivery Method Room Air 05/30/23 14:43 BMI result Body Mass Index 30.1 vss Appearance: Alert.? Oriented X3.? No acute distress.? Head: Normocephalic, atraumatic, no step-offs or deformities Eyes: Pupils equal, round and reactive to light.? ENT: Pharynx normal.? Neck: Normal inspection.? Neck supple.? CVS: Normal heart rate and rhythm.? Pulses normal.? Respiratory: No respiratory distress.? Breath sounds normal.? Abdomen: Soft and nontender.? Skin: Skin warm and dry.? Normal skin color.? Normal skin turgor.? Extremities: No lower extremity edema.? No calf ttp. 5/5 strength to bilateral upper and lower extremities Back: No midline tenderness, no C-spine tenderness, full range of motion, no CVA tenderness bilaterally right-sided upper thoracic and cervical paraspinous tenderness. No midline tenderness. No paraspinous tenderness on the left. Neuro: Oriented X 3.? No motor deficit.? No sensory deficit. CN 2-12 intact Assessment & Plan Assessment & Plan (1) Paraspinal muscle spasm: Code(s): M62.830 - Muscle spasm of back Plan Take your medications as prescribed. If you were prescribed antibiotics today, it is important that you take your medication to their entirety, do not skip any doses, do not finish them early. Follow-up with your primary care provider this week. Return to the emergency department with new or worsening symptoms. Such as fevers, chills, chest pain, shortness of breath, nausea, vomiting, dizziness, headache, vision changes, lethargy In case of emergency call 911 Medications: New cyclobenzaprine 10 mg PO BEDTIME PRN 14 tabs 0RF muscle spasm diclofenac sodium 1% (Voltaren Arthritis Pain) apply to single elbow, wrist or hand; for hand includes palm/fingers/back of hand 2 grams topical QID 100 grams 2RF Coding Level of Care Code Est Pt Level 3 (22822) Diagnoses Paraspinal muscle spasm M62.830
== END 2023-05-30 15:38 | disposition home or self-care (01) ==
PROVIDERS: PCP Nurse Practitioner Family; Visit Provider Physician Assistant
DX: M62.830 Muscle spasm of back (principal)
CPT/HCPCS: 99213

== ENCOUNTER 2023-06-25 11:28 | Outpatient (AMB) | payer MEDICARE, MEDICAID, SELFPAY ==
[2023-06-25 12:31] VITALS: BP 126/72; PULSE 101; TEMP 36.6; O2SAT 98; BMI 30.1
--- NOTE | 2023-06-25 12:31 | MHC.OFFWIV ---
Intake Vital Signs 06/25/23 12:31 Height 5 ft 7 in Weight 192 lb BMI 30.1 BP 126/72 Blood Pressure Location Rt brachial Position Sitting Pulse 101 H Pulse Source Pulse Oximeter Temp 97.9 F Temp Source Oral Pulse Oximetry (%) 98 Oxygen Delivery Method Room Air Intake Visit Reasons: EST/back pain(lobby) Intake Note: pt is here for c/o back pain Patient Tobacco Use Status: Never used Tobacco Allergies ciprofloxacin [From CIPRO] Allergy (Unknown, Verified 06/25/23 12:31) UNKNOWN doxycycline [DOXYCYCLINE] Allergy (Unknown, Verified 06/25/23 12:31) UNKNOWN prednisone [PREDNISONE] Allergy (Unknown, Verified 06/25/23 12:31) UNKNOWN NUMBING MEDICATION Allergy (Severe, Uncoded 02/03/23 18:08) HEART STOPPED From DETROL Allergy (Unknown, Uncoded 02/03/23 18:08) UNKNOWN From LESCOL Allergy (Unknown, Uncoded 02/03/23 18:08) UNKNOWN Medication List - Last Reconciled 06/25/23 by Patti Bartlett MD alcohol swabs (Alcohol Prep Pads) 1 pad topical TID aspirin 81 mg PO DAILY blood sugar diagnostic (Accu-Chek Soo Plus test strips) USE TO TEST THREE TIMES A DAY DIRECTED clopidogrel 75 mg PO DAILY [diabetic shoes As directed for diabetes] famotidine 20 mg PO DAILY hydrochlorothiazide 25 mg PO QAM 90 days insulin NPH and regular human 100 unit/mL (70-30) (Novolin 70/30 U-100 Insulin) 79 units in AM and 59 units in PM subcut daily; 90 days insulin syringe-needle U-100 use 1 syringe BID for insulin injections levothyroxine 112 mcg PO DAILY [id number]-pyillgo 15,000-47,000 -63,000 unit (Zenpep) 1 cap PO TID metoprolol succinate ER 50 mg PO DAILY 90 days potassium chloride ER 10 mEq PO DAILY 90 days pravastatin 80 mg PO BEDTIME Shower Chair shower chair with backrest terazosin 5 mg PO BEDTIME ursodiol 300 mg PO BID Do you need a note to return to daycare/school/sports/work: Yes HPI EST/back pain(lobby) HPI Details Patient is 68-year-old gentleman came in today to be evaluated for upper back pain which has been happening for the past 2 or 3 weeks He was seen here few days ago and was prescribed cyclobenzaprine. Patient returned as his pain is not better. Patient have a history of bypass surgery and is currently taking Plavix, can not take NSAIDs He is reluctant to start physical therapy His pain is located bilateral over shoulder blades. I am prescribing another course of muscle relaxer along with tramadol to be taken 2 times a day as needed. Patient have appointment with PCP 10th of this month. PFSH Medical History Hypothyroidism Type 1 diabetes COVID Atherosclerotic cardiovascular disease Screening PSA (prostate specific antigen) Hyperlipidemia Hypertension Anxiety Pancreatitis Surgical History S/P CABG x 2 Social History Housing: Apartment Alcohol intake: unknown Patient Tobacco Use Status: Never used Tobacco e-Cigarette/Vaping Use: Never Used Second Hand Smoke Exposure: Yes Current occupational status: retired Cognitive needs: No Hearing needs: No Vision needs: No Review of Systems Const All systems reviewed & are unremarkable except as noted in HPI and below Physical Exam Vital Signs: Last Vital Signs Temp 97.9 F 06/25/23 12:31 Pulse 101 H 06/25/23 12:31 BP 126/72 06/25/23 12:31 Pulse Ox 98 06/25/23 12:31 Oxygen Delivery Method Room Air 06/25/23 12:31 BMI result Body Mass Index 30.1 Const General: no acute distress Orientation/consciousness: patient oriented x3 Eyes General: appearance normal, both eyes and all related structures Resp Effort & Inspection: normal respiratory effort and able to speak in complete sentences Auscultation: clear to auscultation bilaterally Cardio Other: S1 S2 Back/Spine/Pelvis Back/spine/pelvis image: 1. Site of pain, tender to palpation, left more than right Neuro General: patient oriented x3 Psych Mental Status: mental status grossly normal Assessment & Plan Assessment & Plan (1) Upper back pain on left side: Code(s): M54.9 - Dorsalgia, unspecified Plan Patient is 68-year-old gentleman came in today to be evaluated for upper back pain which has been happening for the past 2 or 3 weeks He was seen here few days ago and was prescribed cyclobenzaprine. Patient returned as his pain is not better. Patient have a history of bypass surgery and is currently taking Plavix, can not take NSAIDs He is reluctant to start physical therapy His pain is located bilateral over shoulder blades. I am prescribing another course of muscle relaxer along with tramadol to be taken 2 times a day as needed. Patient have appointment with PCP 10th of this month. Medications: New tramadol 50 mg PO BID PRN 14 tabs 0RF pain 7 days Refilled cyclobenzaprine 10 mg PO BEDTIME PRN 14 tabs 0RF muscle spasm Coding Level of Care Code Est Pt Level 3 (13880) Diagnoses Upper back pain on left side M54.9
== END 2023-06-25 12:53 | disposition home or self-care (01) ==
PROVIDERS: PCP Nurse Practitioner Family; Visit Provider Internal Medicine
DX: M54.9 Dorsalgia, unspecified (principal)
CPT/HCPCS: 99213

== ENCOUNTER 2023-07-02 13:29 | Outpatient (AMB) | payer MEDICARE, MEDICAID, SELFPAY ==
--- NOTE | 2023-07-02 13:42 | A.OFFPC_ITS ---
Vital Signs 07/02/23 13:48 Height 5 ft 7 in Weight 190 lb BMI 29.8 BP 122/80 Blood Pressure Location Rt brachial Position Sitting Pulse 99 Pulse Source Pulse Oximeter Pulse Oximetry (%) 99 Oxygen Delivery Method Room Air Intake Visit Reasons: 4m follow up Intake Note: Patient is here to f/u on diabetes. pt states sugars have been ranging between 150-210. Allergies ciprofloxacin [From CIPRO] Allergy (Unknown, Verified 07/02/23 13:49) UNKNOWN doxycycline [DOXYCYCLINE] Allergy (Unknown, Verified 07/02/23 13:49) UNKNOWN prednisone [PREDNISONE] Allergy (Unknown, Verified 07/02/23 13:49) UNKNOWN NUMBING MEDICATION Allergy (Severe, Uncoded 07/02/23 13:49) HEART STOPPED From DETROL Allergy (Unknown, Uncoded 07/02/23 13:49) UNKNOWN From LESCOL Allergy (Unknown, Uncoded 07/02/23 13:49) UNKNOWN Medication List - Last Reconciled 07/02/23 by VIRI GalanP- alcohol swabs (Alcohol Prep Pads) 1 pad topical TID aspirin 81 mg PO DAILY blood sugar diagnostic (Accu-Chek Soo Plus test strips) USE TO TEST THREE TIMES A DAY DIRECTED clopidogrel 75 mg PO DAILY cyclobenzaprine 10 mg PO BEDTIME PRN [diabetic shoes As directed for diabetes] famotidine 20 mg PO DAILY hydrochlorothiazide 25 mg PO QAM 90 days insulin NPH and regular human 100 unit/mL (70-30) (Novolin 70/30 U-100 Insulin) 79 units in AM and 59 units in PM subcut daily; 90 days insulin syringe-needle U-100 use 1 syringe BID for insulin injections levothyroxine 112 mcg PO DAILY cmobyu-phybfssr-vzmbptn 15,000-47,000 -63,000 unit (Zenpep) 1 cap PO TID metoprolol succinate ER 50 mg PO DAILY 90 days potassium chloride ER 10 mEq PO DAILY 90 days pravastatin 80 mg PO BEDTIME Shower Chair shower chair with backrest terazosin 5 mg PO BEDTIME tramadol 50 mg PO BID PRN 7 days ursodiol 300 mg PO BID Tobacco use date assessed: 07/02/23 Fall risk assessment: No Falls in past year Last assessed Fall Risk: 07/02/23 Dental Screening Dental Screen Date: 07/02/23 Did you have a dental visit in the last 12 months?: No Did you have a dental problem in the last 6 months where you did not have access to dental care?: No Was dental information given to patient?: No HPI 4m follow up HPI Details Pt is a diabetic, on a statin. A1C could not be read today because hemoglobin was too low. He denies any visual blood in stool or urine and dizziness. Will send pt to lab for CBC, iron studies, and FIT test. Microalbumin is up to date. Denies polyruia, polydipsia, and neuropathy. Pt denies any signs and symptoms of hypoglycemia and does know how to correct it. Pt is interested in a glucose sensor/transmitter, will send. Eye exam is up to d ate. Pt c/o thoracic back pain. He has been seen in the walk-in twice and given cyclobenzaprine and tramadol. He reports ongoing pain. Will order XR, mentioned use of tylenol, as prescribed on the back of the bottle. [facility] Medical History Hypothyroidism Type 1 diabetes COVID Atherosclerotic cardiovascular disease Screening PSA (prostate specific antigen) Hyperlipidemia Hypertension Anxiety Pancreatitis Surgical History S/P CABG x 2 Social History Housing: Apartment Alcohol intake: unknown Patient Tobacco Use Status: Never used Tobacco e-Cigarette/Vaping Use: Never Used Second Hand Smoke Exposure: Yes Current occupational status: retired Cognitive needs: No Hearing needs: No Vision needs: No Questionnaire PHQ-9 Over the last 2 weeks, how often have you been bothered by any of the following problems? 49284 - PHQ-9 Billing: Patient declined-do not bill Source: Developed by Drs. Good Gonzalez, Wilda Holt, Sahil Walden and colleagues, with an educational michael from [employer]. Thrive Questionnaire Date Thrive assessed: 07/02/23 I am a: Patient What is your living situation today?: I have a steady place to live Within the past 12 months, did the food you bought not last and you didn't have the money to get more?: Never true Within the past 12 months, did you worry whether your food would run out before you got money to buy more?: Never true Do you have trouble paying for medicines?: No Do you have trouble getting transportation to medical appointments?: No Do you have trouble paying your heating and electricity bill?: No Do you have trouble taking care of your child, family member or friend?: No Do you have trouble with day-to-day activities such as bathing, preparing meals, shopping, managing finances, etc.?: No Are you currently unemployed and looking for a job?: No Are you interested in more education?: No AUDIT C Alcohol Use Questionnaire (AUDIT-C) 1. How often do you have a drink containing alcohol?: Never 3. How often do you have six or more drinks on one occasion?: Never Total Score: 0 Score Reviewed/Action Taken: No NAGI-7 AMB Questionnaire NAGI-7 Date NAGI - 7 assessed: 07/02/23 Source: Developed by Drs. Good Gonzalez, Wilda Holt, Sahil Walden and colleagues, with an educational michael from [employer]. NAGI-7 Assessment Billing NAGI-7 Assessment Tool: pt declined-do not bill Review of Systems Const Reports as per HPI Physical exam (Primary Care) Vital Signs: Last Vital Signs Pulse 99 07/02/23 13:48 BP 122/80 07/02/23 13:48 Pulse Ox 99 07/02/23 13:48 Oxygen Delivery Method Room Air 07/02/23 13:48 BMI result Body Mass Index 29.8 Tobacco/Smoking Status: Tobacco use Status Tobacco use date assessed 07/02/23 07/02/23 13:53 Patient Tobacco Use Status Never used Tobacco 07/02/23 13:42 e-Cigarette/Vaping Use Never Used 07/02/23 13:42 Thrive Assessment: Date of Thrive Assessment Date Thrive assessed 07/02/23 07/02/23 14:14 Const Other: pale complexion General: cooperative Orientation/consciousness: patient oriented x3 Resp Effort & Inspection: normal respiratory effort Auscultation: clear to auscultation bilaterally Cardio Rate: regular rate Rhythm: regular rhythm Heart sounds: S1 normal heart sound present and S2 normal heart sound present Back/Spine/Pelvis Other: paraspinus region of mid thoracic back TTP, tenderness also noted with turning upper torso side to side Skin Other: pale complexion Neuro General: patient oriented x3 Extrem Other: bilat feet: + sensation with use of monofilament, right foot 5th toenail ecchymotic Psych Appearance: grossly normal Mental Status: mental status grossly normal Speech and movement: Normal speech and movement present Affect: normal affect Attitude: cooperative Thought process: Normal thought process present Thought content: Normal thought content present Insight: Good insight present (Psych) Judgement: Good judgement present (Psych) Assessment and Plan Assessment & Plan (1) Type 2 diabetes mellitus with unspecified complications: Code(s): E11.8 - Type 2 diabetes mellitus with unspecified complications Plan: Labs ordered (2) Thoracic back pain: Code(s): M54.6 - Pain in thoracic spine Plan: XR ordered (3) Anemia: Code(s): D64.9 - Anemia, unspecified Plan: Labs ordered (4) Hypomagnesemia: Code(s): E83.42 - Hypomagnesemia Plan: lab ordered Plan The patient agreed to the use of a medical dir for this encounter. Scribed for TERENCE Rosales by Davida Guan medical dir, on 07/02/2023 at 14:00 EST. Orders: Orders Complete Blood Count Auto Diff Today E11.8 - Type 2 diabetes mellitus with unspecified complications Lipid Panel Today E11.8 - Type 2 diabetes mellitus with unspecified compli cations Hemoglobin A1c Today E11.8 - Type 2 diabetes mellitus with unspecified complications TSH reflex Free T4 Today E11.8 - Type 2 diabetes mellitus with unspecified complications UA CC w/rflx Micro + Cult Today E11.8 - Type 2 diabetes mellitus with unspecified complications XR thoracic spine 2V Today M54.6 - Pain in thoracic spine Comprehensive Met. Panel Today E11.8 - Type 2 diabetes mellitus with unspecified complications Ferritin Today D64.9 - Anemia, unspecified IRON PROFILE Today D64.9 - Anemia, unspecified FITS Today D64.9 - Anemia, unspecified Magnesium Today E83.42 - Hypomagnesemia Medications: New flash glucose sensor (FreeStyle Minna 14 Day Sensor kit) tid testing 1 ea 1RF diabetes flash glucose scanning reader (FreeStyle Minna 2 [place]) tid 1 ea 0RF diabetes Coding Level of Care Code Est Pt Level 3 (15893) Diagnoses Type 2 diabetes mellitus with unspecified complications E11.8 Thoracic back pain M54.6 Anemia D64.9 Hypomagnesemia E83.42
[2023-07-02 13:48] VITALS: BP 122/80; PULSE 99; O2SAT 99; BMI 29.8
== END 2023-07-02 15:22 | disposition home or self-care (01) ==
PROVIDERS: PCP Nurse Practitioner Family; Visit Provider Nurse Practitioner Family
DX: E11.8 Type 2 diabetes mellitus with unspecified complications (principal); M54.6 Pain in thoracic spine; D64.9 Anemia, unspecified; E83.42 Hypomagnesemia
CPT/HCPCS: 99213

== ENCOUNTER 2023-07-02 14:20 | Outpatient (REF) | payer MEDICARE, MEDICAID, SELFPAY ==
[2023-07-02 16:07] LABS: MANUAL DIFF FLAG NO
[2023-07-02 16:15] LABS: Basophils Percent Auto 0.4 % (0-2); Eosinophils Absolute Auto 0.3 X10*3/uL (0.0-0.4); Eosinophils Percent Auto 3.8 % (0-4); Hematocrit 40.1 % (42.0-52.0); Hemoglobin 12.2 g/dl (14.0-18.0); Imm Gran Abs Auto 0.06 X10*3/uL (0.00-0.03); Imm Gran Pct Auto 0.7 % (0.0-0.4); Lymphocytes Absolute Auto 1.5 X10*3/uL (1.2-4.9); Lymphocytes Percent Auto 18.6 % (20-40); Mean Corpuscular HGB Conc 30.4 g/dl (31.0-36.0); Mean Corpuscular Hemoglobin 26.4 pg (27.0-33.0); Mean Corpuscular Volume 86.8 fL (80.0-98.0); Mean Platelet Volume 11.8 fL (9.4-12.4); Monocytes Absolute Auto 0.5 X10*3/uL (0.1-1.2); Monocytes Percent Auto 5.9 % (2-11); Neutrophils Absolute Auto 5.7 x10*3/uL (2.0-8.3); Neutrophils Percent Auto 70.6 % (45-73); Platelet Count 190 X10*3/uL (160-400); Red Blood Count 4.62 X10*6/uL (4.60-5.80); Red Cell Distribution Width 14.6 % (11.0-16.0); White Blood Count 8.1 X10*3/uL (4.8-10.8)
[2023-07-02 16:25] LABS: Estimated Average Glucose 197 mg/dL; Hemoglobin A1c % 8.5 % (<6.0)
[2023-07-02 16:48] LABS: Alanine Aminotransferase 16 U/L (0-40); Albumin Level 4.1 g/dL (3.5-5.0); Alkaline Phosphatase 89 U/L (39-117); Anion Gap 16 (12-20); Aspartate Amino Transferase 27 U/L (5-37); Bilirubin Total 0.8 mg/dL (0.0-1.0); Blood Urea Nitrogen 22 mg/dL (9-16); Calcium 9.7 mg/dL (8.4-10.2); Carbon Dioxide 25 mmol/L (22-29); Chloride 102 mmol/L (96-108); Cholesterol 101 mg/dL (<200); Estimated Glomerular Filt Rate 44; Glucose Random 394 mg/dL (60-115); HDL Cholesterol 38 mg/dL (>40); Iron 41 mcg/dL (45-160); LDL Cholesterol Calculated 20 mg/dL (<100); Magnesium 1.6 mg/dL (1.6-2.6); Percent Iron Saturation 12 % (15-50); Sodium 139 mmol/L (135-145); Total Iron Binding Capacity 335 mcg/dL (228-428); Total Protein 7.3 g/dL (6.5-8.0); Triglycerides 218 mg/dL (<150); Unsaturated Iron Binding 294 ug/dL
[2023-07-02 16:53] LABS: Ferritin 16 ng/mL (20-250); TSH reflex Free T4 2.17 uIU/mL (0.32-4.0)
[2023-07-02 17:10] LABS: Appearance Urine Clear; Color Urine Yellow; Glucose Urine UA >=1000 mg/dL (Negative); Leukocyte Esterase Urine Negative (Negative); Nitrite Urine Negative (Negative); PH 5.5 (5.0-9.0); Specific Gravity - Urine 1.025 (1.005-1.025); UMIC TRIGGER UACC YES; Urine Blood Negative (Negative); Urine Ketones Trace mg/dL (Negative); Urine Protein Negative (Neg-Trace)
[2023-07-02 17:33] LABS: Bacteria Urine None Seen (None Seen); Hyaline Casts Urine 0-2 /LPF (0-2); RBC Urine 0-2 /HPF (0-2); Squamous Epithelial Cell Urine 0-2 /HPF (0-2); WBC Urine 0-5 /HPF (0-5)
== END 2023-07-02 14:21 | disposition home or self-care (01) ==
LOC: HO.HMGCLDS 14:20
PROVIDERS: PCP Nurse Practitioner Family; Visit Provider Nurse Practitioner Family
DX: E11.8 Type 2 diabetes mellitus with unspecified complications (principal); D64.9 Anemia, unspecified; E83.42 Hypomagnesemia
CPT/HCPCS: 36415; 80053; 80061; 81001; 81003; 82728; 83036; 83540; 83735; 84443; 85025

== ENCOUNTER 2023-07-04 | Outpatient (REF) | payer MEDICARE, MEDICAID, SELFPAY | END 2023-07-04 00:01 | disposition home or self-care (01) | LOC: HO.HMGCLNP | PROVIDERS: Visit Provider Nurse Practitioner Family | DX: Z13.89 Encounter for screening for other disorder (principal) ==

== ENCOUNTER 2023-07-05 02:24 | Emergency (ER) | payer MEDICARE, MEDICAID, SELFPAY ==
--- NOTE | ~2023-07-05 | CT_ITS ---
EXAMINATION: CT THORACIC SPINE WITHOUT CONTRAST CLINICAL INFORMATION: severe pain between shoulder blades COMPARISON: None available. TECHNIQUE: Multidetector volumetric imaging was obtained through the thoracic spine without contrast material. Multiplanar reformatted images in coronal and sagittal orientations were submitted. This CT examination was performed using dose optimization techniques as appropriate, variously including the following: *Automated exposure control *Adjustment of mA and/or kV according to patient size (this includes techniques or standardized protocols for targeted exams where dose is matched to indication/reason for exam; i.e. extremities or head) *Use of iterative reconstruction technique DLP: 768 mGy-cm FINDINGS: Acute fractures are identified in the thoracic spine. Vertebral body heights are normal. 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 No aggressive osseous lesions. Moderate to severe degenerative disc disease at C5-C6, C6-C7, and C7-T1 is partially included at the cephalad margin of the study. There is more mild to moderate degenerative disc disease in the lumbar spine from T6-T7 through T9-T10. Moderate multilevel facet arthropathy is present throughout the thoracic spine diffusely, sparing T12-L1 and C7-T1. There is a posterior disc osteophyte complex at the T7-T8 level which produces minimal central canal narrowing. Central canal is otherwise patent. Uncovertebral osteophytes produce neural foraminal encroachment at T2-T3 and T3-T4 bilaterally, right greater than left. Calcific atherosclerosis is present in the thoracic and abdominal aorta and in the coronary arteries. No acute soft tissue findings are identified. CT/CT thoracic spine wo IV con IMPRESSION: 1. No acute fracture or malalignment in the thoracic spine. 2. 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 3. Bilateral neural foraminal encroachment at T2-T3 and T3-T4 due to uncovertebral osteophytes.
[2023-07-05 02:41] VITALS: BP 146/92; PULSE 90; O2SAT 100
[2023-07-05 02:47] VITALS: BP 137/83; PULSE 84; RESP 20; TEMP 36.4; O2SAT 100; BMI 30.1
[2023-07-05 02:56] VITALS: BP 137/83; PULSE 87; RESP 20; TEMP 36.4; O2SAT 100
--- NOTE | 2023-07-05 02:57 | PC.NURSE ---
Pt ca&ox4, no signs of distress. Pt reports 10/10 back pain. Pt assisted to bedside commode for bowel movement. Pt changed into hospital gown and assisted into bed for comfort. Plan of care ongoing.
--- NOTE | 2023-07-05 04:09 | ED.BACK ---
HPI - Back Pain/Injury General Chief Complaint: Back Pain/Injury Stated Complaint: UPPER BACK PAIN Time Seen by Provider: 07/05/23 03:48 Source: patient and old records reviewed Mode of arrival: EMS Limitations: no limitations History of Present Illness HPI Narrative: 68 yo male with PMH of HTN, HLD, DM, CAD s/p CABG 2V on plavix and aspirin he tells me he recently used the snowblower and shoveled which he told his he shouldn't from our most recent snowstorm and injured his back. His usual health care clinic Rx tramadol and tylenol which did nothing. He has no numbness, weakness, bowel or bladder incontinence. He notes he can no longer take the pain so he came tonight as it is to much. MD elicited complaint: back pain and back injury Pertinent past history: prior back pain and recent trauma Onset (ago): day(s) (10) Timing: constant Severity: severe Similar Symptoms Previously: Yes Quality: sharp, spasming and throbbing Location: thoracic spine Radiation: none Exacerbating factors: movement Relieving factors: immobilization Context: turning/twisting Associated symptoms: denies other symptoms Treatments prior to arrival: acetaminophen and prescription analgesics Work related injury: No Related Data Home Medications Medication Instructions Recorded Confirmed aspirin 81 mg chewable tablet 81 mg PO DAILY 11/14/21 07/02/23 Previous Rx's Medication Instructions Recorded diabetic shoes #1 ea 06/13/20 Shower Chair #1 ea 09/11/22 ergzoc-tmslwzkb-sbrsyxx 1 cap PO TID #270 caps 10/29/22 15,000-47,000-63,000 unit capsule,delayed rel (Zenpep) alcohol swabs (Alcohol Prep Pads) 1 pad topical TID #300 ea 01/27/23 terazosin 5 mg capsule 5 mg PO BEDTIME #90 caps 01/28/23 clopidogrel 75 mg tablet 75 mg PO DAILY #90 tabs 03/10/23 insulin human U-100 NPH-regulr See Rx Instructions subcut DAILY 03/26/23 70-30 mix 100 unit/mL subcutaneous 90 days #90 mL susp (Novolin 70/30 U-100 Insulin) insulin syringe-needle U-100 1 mL #200 ea 03/31/23 30 gauge x 1/2 pravastatin 80 mg tablet 80 mg PO BEDTIME #90 tabs 03/31/23 metoprolol succinate 50 mg 50 mg PO DAILY 90 days #90 tabs 04/10/23 tablet,extended release 24 hr famotidine 20 mg tablet 20 mg PO DAILY #90 tabs 04/27/23 potassium chloride 10 mEq 10 meq PO DAILY 90 days #90 tabs 04/27/23 tablet,extended release blood sugar diagnostic (Accu-Chek #300 ea 04/30/23 Soo Plus test strips) hydrochlorothiazide 25 mg tablet 25 mg PO QAM 90 days #90 tabs 05/10/23 levothyroxine 112 mcg tablet 112 mcg PO DAILY #90 caps 05/10/23 ursodiol 300 mg capsule 300 mg PO BID #180 caps 05/10/23 cyclobenzaprine 10 mg tablet 10 mg PO BEDTIME PRN muscle spasm 06/25/23 #14 tabs tramadol 50 mg tablet 50 mg PO BID PRN pain 7 days #14 06/25/23 tabs ferrous sulfate 324 mg (65 mg 324 mg PO BID 90 days #180 tabs 07/02/23 iron) tablet,delayed release flash glucose scanning reader #1 ea 07/02/23 (Hubspanyle Minna 2 [place]) flash glucose sensor (Hubsp[place]le #6 ea 07/02/23 Minna 2 Sensor kit) lidocaine 4 % topical patch 1 patch topical DAILY PRN pain #30 07/05/23 ea morphine 15 mg immediate release 15 mg PO Q6H PRN pain #12 tabs 07/05/23 tablet Allergies Allergy/AdvReac Type Severity Reaction Status Date / Time ciprofloxacin [From CIPRO] Allergy Unknown UNKNOWN Verified 07/02/23 13:49 doxycycline [DOXYCYCLINE] Allergy Unknown UNKNOWN Verified 07/02/23 13:49 prednisone [PREDNISONE] Allergy Unknown UNKNOWN Verified 07/02/23 13:49 NUMBING MEDICATION Allergy Severe HEART Uncoded 07/02/23 13:49 STOPPED From DETROL Allergy Unknown UNKNOWN Uncoded 07/02/23 13:49 From LESCOL Allergy Unknown UNKNOWN Uncoded 07/02/23 13:49 Review of Systems Review of Systems: Constitutional : No Weight loss, No Fever, No Chills, ENT/Mouth : No Hearing loss, No Ear Pain, No Nasal Congestion, No Sinus Pain, No Hoarseness, No sore throat, No Rhinorrhea, No Swallowing Difficulty Cardiovascular : No Chest Pain, No SOB Respiratory : No Cough, No Dyspnea Gastrointestinal : No Nausea, No Vomiting, No Diarrhea, No abdominal Pain, No Hematochezia, No Melena Genitourinary : No Dysuria, No Urinary Frequency, No Hematuria, No Urinary Incontinence, Musculoskeletal : positive back pain Skin : No Skin Lesions, No rash Neuro : No Weakness, No Numbness, No Paresthesias, no loss of bowel or bladder incontinence, no saddle anesthesia all other systems reviewed and are negative PMFSH Past Medical History Attestation statement: The following information was validated with the patient. Source: old records reviewed Onset Date is defined in the Problem List Problems that require an onset date and time if occurred within 24 hrs of arrival to the ED Aortic Dissection and Rupture; Neurologic impairment; Cardiopulmonary Arrest; Endotracheal Intubation; Insertion or Replacement of Mechanical Circulatory Assist Device Medical History Hypothyroidism Type 1 diabetes COVID Atherosclerotic cardiovascular disease Screening PSA (prostate specific antigen) Hyperlipidemia Hypertension Anxiety Pancreatitis Surgical History S/P CABG x 2 Social History Social History Housing: Apartment Alcohol intake: unknown Patient Tobacco Use Status: Never used Tobacco Smoked in Last 30 Days: No e-Cigarette/Vaping Use: Never Used Second Hand Smoke Exposure: Yes Use of substances other than those prescribed or required for medical reasons: No Advance Directives: No Advance Directives Information Provided: Yes Current occupational status: retired Cognitive needs: No Hearing needs: No Vision needs: No Physical Exam Vital Signs: Vital Signs: Last Vital Signs Temp 97.6 F 07/05/23 02:56 Pulse 87 07/05/23 02:56 Resp 18 07/05/23 04:23 BP 137/83 07/05/23 02:56 Pulse Ox 100 07/05/23 02:56 O2 Del Method Room Air 07/05/23 02:56 BMI result Body Mass Index 30.1 Appearance: Alert. Oriented X3. No acute distress. Sleeping had to be woken Eyes: Pupils equal, round and reactive to light. ENT: Pharynx normal. Neck: Normal inspection. Neck supple. CVS: Normal heart rate and rhythm. Pulses normal. Respiratory: No respiratory distress. Breath sounds normal. Abdomen: Soft and nontender. Back: ttp along paraspinal bilaterally between scapula reproduces pain Skin: Skin warm and dry. Normal skin color. Normal skin turgor. Extremities: No lower extremity edema. No calf ttp Neuro: Oriented X 3. No motor deficit. No sensory deficit. UE and LE intact 5/5 pulses intact Course Course Course Narrative: currently asleep and pain improved with IV morphine Medications Administered Generic Name Dose Route Start Last Admin Trade Name Freq PRN Reason Stop Dose Admin Sodium Chloride 500 mls @ 500 mls/hr 07/05/23 05:15 07/05/23 05:29 Ns IV 07/05/23 06:14 500 mls/hr .Q1H JA Administration Discontinued Medications Generic Name Dose Route Start Last Admin Trade Name Freq PRN Reason Stop Dose Admin Morphine Sulfate 4 mg 07/05/23 04:05 07/05/23 04:23 Morphine Sulfate 4 Mg/Ml Cartridge IVPUSH 07/05/23 04:06 4 mg ONCE ONE Administration Protocol Ondansetron HCl 4 mg 07/05/23 04:05 07/05/23 04:23 Ondansetron Hcl 4 Mg/2 Ml Vial IVPUSH 07/05/23 04:06 4 mg ONCE ONE Administration Potassium Chloride 20 meq 07/05/23 05:03 07/05/23 05:29 Potassium Chloride Packet 20 Meq Packet PO 07/05/23 05:04 20 meq ONCE ONE Administration Medical Decision Making Medical Decision Making [facility] Narrative: 68 yo male with PMH of HTN, HLD, DM, CAD s/p CABG 2V on plavix and aspirin here with back pain but no cauda equina symptoms and he is NV intact following injury while removing snow 10 days ago at this time will obtain basic labs, IV morphine, CT scan of thoracic spine to look for occult fracture. Differential Diagnosis Differential Diagnoses: The differential diagnosis associated with the presentation includes back pain, strain, spasm, compression fracture, disc disease Admission/Observation Consideration of admission/observation: Escalation of care including admission/observation considered pain is improved no acute concerning findings on CT scan he is shocked there is no medication that can fix back pain right away aware he needs to go through PCP and PT and this could take a month to get better. Lab Data [facility] Lab Attestation statement: I reviewed the patient's lab results. 07/05/23 05:08 07/05/23 04:26 Labs: Lab Results 07/05/23 07/05/23 Range/Units 04:26 05:08 WBC 8.7 (4.8-10.8) X10*3/uL RBC 4.88 (4.60-5.80) X10*6/uL Hgb 12.9 L (14.0-18.0) g/dl Hct 40.8 L (42.0-52.0) % MCV 83.6 (80.0-98.0) fL MCH 26.4 L (27.0-33.0) pg MCHC 31.6 (31.0-36.0) g/dl RDW 14.9 (11.0-16.0) % Plt Count 207 (160-400) X10*3/uL MPV 10.9 (9.4-12.4) fL Immature Gran % (Auto) 0.5 H (0.0-0.4) % Neut % (Auto) 73.0 (45-73) % Lymph % (Auto) 17.9 L (20-40) % [place] % (Auto) 6.3 (2-11) % Eos % (Auto) 1.8 (0-4) % Baso % (Auto) 0.5 (0-2) % Lymph # (Auto) 1.6 (1.2-4.9) X10*3/uL [place] # (Auto) 0.6 (0.1-1.2) X10*3/uL Eos # (Auto) 0.2 (0.0-0.4) X10*3/uL Baso # (Auto) 0.0 (0.0-0.2) X10*3/uL Abs Immat Gran (auto) 0.04 H (0.00-0.03) X10*3/uL Absolute Neuts (auto) 6.4 (2.0-8.3) x10*3/uL Absolute Nucleated RBC 0.000 (0.0-0.012) X10*3/uL Nucleated RBC % (auto) 0.0 (0.0-0.2) /100WBC Sodium 143 (135-145) mmol/L Potassium 3.2 L (3.3-5.1) mmol/L Chloride 107 (96-108) mmol/L Carbon Dioxide 24 (22-29) mmol/L Anion Gap 15 (12-20) BUN 21 H (9-16) mg/dL Creatinine 1.55 H (0.5-1.4) mg/dL Estim Creat Clear Calc 44.9 Estimated GFR 45 Random Glucose 151 H (60-115) mg/dL Calcium 10.4 H D (8.4-10.2) mg/dL Independent Interpretation I performed an independent interpretation of an: EKG and CT Scan Interpretation: Rate: 78 Rhythm: NSR [place]: left Normal P waves. Normal YONI. Normal QRS complex. ST T wave : no MARTA, inverted t wave V1 qTC: 458 prior studies: no acute ischemia The study has been interpreted contemporaneously by me. . Radiology Impression Discussion of test interpretation with radiology: I have reviewed the radiologist's reading. Independent Historian Clinical information obtained from an independent historian. History obtained from or confirmed by: EMS External Record Review External record reviewed: Inpatient record Prescription Management I considered prescription management with: Pain Medication and Other Critical Care Time Critical Care Time Critical Care Time: Yes Total Critical Care Time: 40 Attestation: pain improved and sleeping after IV morphine, review of records I attest to this time spent taking care of the patient Discharge Plan Discharge Clinical Impression: Degenerative disc disease, thoracic Back pain, thoracic Qualifiers: Chronicity: acute Back pain laterality: bilateral Qualified Code(s): M54.6 - Pain in thoracic spine Patient Disposition: Home, Self-Care Instructions: Thoracic Pain (ED), Degenerative Disc Disease (ED) Additional Instructions: please follow up with your doctor in regards to physical therapy this will take a few weeks to get better. no lifting more than 5 to 10lbs over the next couple of weeks. use heat on the back as well to feel better. return for worsening pain, numbness, weakness, loss of control of bowel or bladder or any other concerns. Prescriptions: New lidocaine 4 % adhesive patch,medicated 1 patch topical DAILY PRN (Reason: pain) Qty: 30 0RF Rx Instructions: may leave on for up to 12 hrs morphine 15 mg tablet 15 mg PO Q6H PRN (Reason: pain) Qty: 12 0RF Rx Instructions: partial fill okay; Partial Fill upon patient request. No Action (DME) diabetic shoes 0 .Route .MEDSUPPLY Qty: 1 0RF Rx Instructions: As directed for diabetes (DME) Shower Chair Misc See Rx Instructions .Route Qty: 1 0RF Rx Instructions: shower chair with backrest Zenpep 15,000-47,000 -63,000 unit capsule,delayed release(DR/EC) 1 cap PO TID Qty: 270 1RF Rx Instructions: administer with meals and/or snacks alcohol swabs [Alcohol Prep Pads] Pads, Medicated 1 pad topical TID Qty: 300 1RF terazosin 5 mg capsule 5 mg PO BEDTIME Qty: 90 1RF clopidogrel 75 mg tablet 75 mg PO DAILY Qty: 90 1RF Novolin 70/30 U-100 Insulin 100 unit/mL (70-30) suspension See Rx Instructions subcut DAILY 90 Days Qty: 90 1RF Rx Instructions: 79 units in AM and 59 units in PM subcut daily; pravastatin 80 mg tablet 80 mg PO BEDTIME Qty: 90 1RF (DME) insulin syringe-needle U-100 1 mL 30 gauge x 1/2 syringe See Rx Instructions .ROUTE BID Qty: 200 1RF Rx Instructions: use 1 syringe BID for insulin injections metoprolol succinate 50 mg tablet extended release 24 hr 50 mg PO DAILY 90 Days Qty: 90 0RF potassium chloride 10 mEq tablet extended release 10 meq PO DAILY 90 Days Qty: 90 1RF famotidine 20 mg tablet 20 mg PO DAILY Qty: 90 1RF (DME) Accu-Chek Soo Plus test strp Strip See Rx Instructions .ROUTE .COMPLEX Qty: 300 1RF Dose Instruction: USE TO TEST THREE TIMES A DAY DIRECTED Rx Instructions: USE TO TEST THREE TIMES A DAY DIRECTED levothyroxine 112 mcg tablet 112 mcg PO DAILY Qty: 90 1RF ursodiol 300 mg capsule 300 mg PO BID Qty: 180 1RF hydrochlorothiazide 25 mg tablet 25 mg PO QAM 90 Days Qty: 90 1RF (DME) FreeStyle Minna 2 Sensor Kit See Rx Instructions .Route Qty: 6 1RF Rx Instructions: Tetst blood sugar 3 times per day ferrous sulfate 324 mg (65 mg iron) tablet,delayed release (DR/EC) 324 mg PO BID 90 Days Qty: 180 0RF (DME) FreeStyle Minna 2 [place] Misc See Rx Instructions .Route Qty: 1 0RF Rx Instructions: tid cyclobenzaprine 10 mg tablet 10 mg PO BEDTIME PRN (Reason: muscle spasm) Qty: 14 0RF tramadol 50 mg tablet 50 mg PO BID PRN (Reason: pain) 7 Days Qty: 14 0RF aspirin 81 mg tablet,chewable 81 mg PO DAILY
--- NOTE | 2023-07-05 04:11 | ECG_ITS ---
Test Reason : BACK PAIN Blood Pressure : / mmHG Vent. Rate : 078 BPM Atrial Rate : 078 BPM P-R Int : 160 ms QRS Dur : 084 ms QT Int : 402 ms P-R-T Axes : 042 -32 022 degrees QTc Int : 458 ms Normal sinus rhythm Left axis deviation Abnormal ECG When compared with ECG of 20-AUG-2022 20:13, Nonspecific T wave abnormality, improved in Inferior leads T wave inversion no longer evident in Anterior leads Referred By: Asia Gil Electronically Signed By:ANAND GONZALEZ MD
[2023-07-05 04:23] VITALS: RESP 18
[2023-07-05] MEDS: ondansetron HCL 4 MG/2 ML VIAL IVPUSH (04:23)
[2023-07-05] MEDS: Morphine Sulfate 4 MG/ML CARTRIDGE IVPUSH (04:23)
--- NOTE | 2023-07-05 04:46 | PC.NURSE ---
Pt medicated per aug. Labs drawn and sent Plan of care ongoing.
--- NOTE | 2023-07-05 04:48 | PC.NURSE ---
Pt with CT
[2023-07-05 05:02] LABS: Anion Gap 15 (12-20); Blood Urea Nitrogen 21 mg/dL (9-16); Calcium 10.4 mg/dL (8.4-10.2); Carbon Dioxide 24 mmol/L (22-29); Chloride 107 mmol/L (96-108); Creatinine Clr Calc Pharmacy 44.9; Estimated Glomerular Filt Rate 45; Glucose Random 151 mg/dL (60-115); Potassium 3.2 mmol/L (3.3-5.1); Sodium 143 mmol/L (135-145)
[2023-07-05 05:13] LABS: Basophils Percent Auto 0.5 % (0-2); Eosinophils Absolute Auto 0.2 X10*3/uL (0.0-0.4); Eosinophils Percent Auto 1.8 % (0-4); Hematocrit 40.8 % (42.0-52.0); Hemoglobin 12.9 g/dl (14.0-18.0); Imm Gran Abs Auto 0.04 X10*3/uL (0.00-0.03); Imm Gran Pct Auto 0.5 % (0.0-0.4); Lymphocytes Absolute Auto 1.6 X10*3/uL (1.2-4.9); Lymphocytes Percent Auto 17.9 % (20-40); MANUAL DIFF FLAG NO; Mean Corpuscular HGB Conc 31.6 g/dl (31.0-36.0); Mean Corpuscular Hemoglobin 26.4 pg (27.0-33.0); Mean Corpuscular Volume 83.6 fL (80.0-98.0); Mean Platelet Volume 10.9 fL (9.4-12.4); Monocytes Absolute Auto 0.6 X10*3/uL (0.1-1.2); Monocytes Percent Auto 6.3 % (2-11); Neutrophils Absolute Auto 6.4 x10*3/uL (2.0-8.3); Platelet Count 207 X10*3/uL (160-400); Red Blood Count 4.88 X10*6/uL (4.60-5.80); Red Cell Distribution Width 14.9 % (11.0-16.0); White Blood Count 8.7 X10*3/uL (4.8-10.8)
[2023-07-05] MEDS: 0.9 % Sodium Chloride 500 ML IV (05:29)
[2023-07-05] MEDS: Potassium Chloride Packet 20 MEQ PACKET PO (05:29)
[2023-07-05] MEDS: Morphine Sulfate Immed Release 15 MG TABLET PO (05:56)
--- NOTE | 2023-07-05 05:58 | PC.NURSE ---
Pt medicated per aug. Plan of care ongoing.
[2023-07-07 14:11] LABS: FIT Int Ctl YES; FIT Lot M0120 3; FIT1 NEGATIVE (NEGATIVE); FIT2 POSITIVE (NEGATIVE)
== END 2023-07-05 06:31 | disposition home or self-care (01) ==
PROVIDERS: Nurse Practitioner Family; Emergency Provider Emergency Medicine
DX: M51.34 Other intervertebral disc degeneration, thoracic region (principal); E10.9 Type 1 diabetes mellitus without complications; I10 Essential (primary) hypertension; E78.5 Hyperlipidemia, unspecified; Z79.02 Long term (current) use of antithrombotics/antiplatelets; Z79.82 Long term (current) use of aspirin; Z79.899 Other long term (current) drug therapy
CPT/HCPCS: 36415; 72128; 80048; 82274; 85025; 93005; 96374; 96375; 99284; 99285; J2270; J2405

== ENCOUNTER → 2023-07-05 04:11 | Outpatient (BNV) | payer MEDICARE, MEDICAID, SELFPAY | PROVIDERS: Emergency Provider Emergency Medicine; Visit Provider Internal Medicine Cardiovascular Disease | DX: R94.31 Abnormal electrocardiogram [ECG] [EKG] (principal) | CPT/HCPCS: 93010 ==

== ENCOUNTER 2023-09-10 12:03 | Outpatient (AMB) | payer MEDICARE, MEDICAID, SELFPAY ==
[2023-09-10 12:48] VITALS: BP 118/68; PULSE 84; BMI 31.5
--- NOTE | 2023-09-10 12:48 | MHC.OFFVIS ---
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: No Accompanied by: Self / Same As Patient Allergies ciprofloxacin [From CIPRO] Allergy (Unknown, Verified 09/10/23 12:48) UNKNOWN doxycycline [DOXYCYCLINE] Allergy (Unknown, Verified 09/10/23 12:48) UNKNOWN prednisone [PREDNISONE] Allergy (Unknown, Verified 09/10/23 12:48) UNKNOWN NUMBING MEDICATION Allergy (Severe, Uncoded 09/10/23 12:48) HEART STOPPED From DETROL Allergy (Unknown, Uncoded 09/10/23 12:48) UNKNOWN From LESCOL Allergy (Unknown, Uncoded 09/10/23 12:48) UNKNOWN Medication List - Last Reconciled 09/10/23 by Winston Ramirez MD alcohol swabs (Alcohol Prep Pads) 1 pad topical TID aspirin 81 mg PO DAILY blood sugar diagnostic (Accu-Chek Soo Plus test strips) USE TO TEST THREE TIMES A DAY DIRECTED cyclobenzaprine 10 mg PO BEDTIME PRN [diabetic shoes As directed for diabetes] famotidine 20 mg PO DAILY flash glucose scanning reader (FreeStyle Minna 2 [place]) tid flash glucose sensor (FreeStyle Minna 2 Sensor kit) Tetst blood sugar 3 times per day hydrochlorothiazide 25 mg PO QAM 90 days insulin NPH and regular human 100 unit/mL (70-30) (Novolin 70/30 U-100 Insulin) 79 units in AM and 59 units in PM subcut daily; 90 days insulin syringe-needle U-100 use 1 syringe BID for insulin injections levothyroxine 112 mcg PO DAILY lidocaine 4% 1 patch topical DAILY PRN [id number] 15,000-47,000 -63,000 unit (Zenpep) 1 cap PO TID metoprolol succinate ER 50 mg PO DAILY 90 days potassium chloride ER 10 mEq PO DAILY 90 days pravastatin 80 mg PO BEDTIME Shower Chair shower chair with backrest terazosin 5 mg PO BEDTIME ursodiol 300 mg PO BID HPI HPI Comments History of Present Illness Details Isaias returns for follow-up for CAD/CABG. In the past, he was seen regarding an abnormal EKG and we recommended cardiac catheterization. That showed significant 2 vessel disease in LAD and RCA. He was recommended coronary artery bypass surgery but he was absolutely adamant against it and did not pursue any further. He did not seek any further medical attention, but then had 1 further hospitalization for myocardial infarction. Subsequently, transferred to [facility] for further care. In this context, had a repeat cardiac catheterization eventually leading to bypass surgery. He is now accepting the fact that he should have had this sooner and he made a mistake. Since last seen, generally feeling good. He states he has got absolutely no problems and does not have any angina or in fact any cardiac symptoms at all. [facility] Medical History Hypothyroidism Type 1 diabetes COVID Atherosclerotic cardiovascular disease Screening PSA (prostate specific antigen) Hyperlipidemia Hypertension Anxiety Pancreatitis Surgical History S/P CABG x 2 Social History Housing: Apartment Alcohol intake: unknown Patient Tobacco Use Status: Never used Tobacco e-Cigarette/Vaping Use: Never Used Second Hand Smoke Exposure: Yes Current occupational status: retired Cognitive needs: No Hearing needs: No Vision needs: No Review of Systems Const Denies weakness ENT Denies dizziness Card Denies chest pain, Denies chest pain with activity, Denies syncope, Denies rapid heart rate, Denies pedal edema, Denies edema, Denies leg edema, Denies lightheadedness, Denies palpitations, Denies dyspnea, Denies dyspnea on exertion and Denies orthopnea Resp Denies cough, Denies dyspnea and Denies dyspnea on exertion GI Denies hematochezia and Denies change in stool character Musc Denies abnormal gait, Denies muscle cramps, Denies muscle weakness, Denies numbness, Denies radiating pain into limb and Denies tingling Neuro Denies abnormal gait, Denies dizziness, Denies syncope, Denies numbness, Denies tingling and Denies weakness Endo Denies palpitations Physical Exam Vital Signs: Last Vital Signs Pulse 84 09/10/23 12:48 BP 118/68 09/10/23 12:48 BMI result Body Mass Index 31.5 Const General: comfortable and no acute distress Orientation/consciousness: patient oriented x3 HEENT Other: Unremarkable Head: Yes normal to inspection Neck Neck: Yes normal visual inspection Chest Chest palpation & inspection: normal inspection of the chest Resp Auscultation: clear to auscultation bilaterally Cardio Palpation: normal PMI Heart sounds: S1 normal heart sound present, S2 normal heart sound present, no gallops, no murmurs and no rubs GI Palpation (GI): Soft to palpation Back/Spine/Pelvis Other: unremarkable Skin General skin exam: no rashes or lesions noted Neuro General: patient oriented x3 Extrem General: Yes normal to inspection Psych Mental Status: mental status grossly normal Assessment & Plan Assessment & Plan (1) Atherosclerotic cardiovascular disease: Code(s): I25.10 - Atherosclerotic heart disease of craig coronary artery without angina pectoris (2) S/P CABG x 2: Code(s): Z95.1 - Presence of aortocoronary bypass graft (3) Type 2 diabetes mellitus with unspecified complications: Code(s): E11.8 - Type 2 diabetes mellitus with unspecified complications Plan Status post CABG x2 August 2022. Doing well. Continue long-term aspirin. Continue beta-blockers and statins. Lipids are well controlled. There is mention of allergy to Lipitor in the [facility] discharge summary but not clear what is the allergy. Listed to be on pravastatin. With regard to diabetes, he is on insulin. Last hemoglobin A1c is 8.5 %. Less than optimal control. We will see him back in 1 year. In the interim, he will call with concerns. Total time spent including review of data, counseling, documentation, coordination of care-32 minutes. Coding Level of Care Code Est Pt Level 4 (84615) Diagnoses Atherosclerotic cardiovascular disease I25.10 S/P CABG x 2 Z95.1 Type 2 diabetes mellitus with unspecified complications E11.8
== END 2023-09-10 13:06 | disposition home or self-care (01) ==
PROVIDERS: PCP Nurse Practitioner Family; Visit Provider Internal Medicine
DX: I25.10 Atherosclerotic heart disease of native coronary artery without angina pectoris (principal); Z95.1 Presence of aortocoronary bypass graft; E11.8 Type 2 diabetes mellitus with unspecified complications
CPT/HCPCS: 99214

== ENCOUNTER → 2023-09-10 12:03 | Outpatient (BNVA) | payer MEDICARE, MEDICAID, SELFPAY | PROVIDERS: PCP Nurse Practitioner Family; Visit Provider Internal Medicine | DX: I25.10 Atherosclerotic heart disease of native coronary artery without angina pectoris (principal); I11.0 Hypertensive heart disease with heart failure; E10.9 Type 1 diabetes mellitus without complications; Z95.1 Presence of aortocoronary bypass graft; Z98.890 Other specified postprocedural states | CPT/HCPCS: 99212 ==

== ENCOUNTER 2023-10-15 14:01 | Outpatient (AMB) | payer MEDICARE, MEDICAID, SELFPAY ==
--- NOTE | 2023-10-15 14:14 | A.OFFPC_ITS ---
Vital Signs 10/15/23 14:16 Height 5 ft 5 in Weight 190 lb BMI 31.6 BP 120/82 Blood Pressure Location Lt brachial Position Sitting Pulse 68 Pulse Source Pulse Oximeter Pulse Oximetry (%) 98 Oxygen Delivery Method Room Air Intake Visit Reasons: Diabetes f/u Intake Note: Patient here for diabetes f/u. Allergies ciprofloxacin [From CIPRO] Allergy (Unknown, Verified 10/15/23 14:17) UNKNOWN doxycycline [DOXYCYCLINE] Allergy (Unknown, Verified 10/15/23 14:17) UNKNOWN prednisone [PREDNISONE] Allergy (Unknown, Verified 10/15/23 14:17) UNKNOWN iron Adverse Reaction (Verified 10/15/23 14:28) Vomiting NUMBING MEDICATION Allergy (Severe, Uncoded 10/15/23 14:17) HEART STOPPED From DETROL Allergy (Unknown, Uncoded 10/15/23 14:17) UNKNOWN From LESCOL Allergy (Unknown, Uncoded 10/15/23 14:17) UNKNOWN Tobacco use date assessed: 07/02/23 Fall risk assessment: No Falls in past year Last assessed Fall Risk: 10/15/23 Dental Screening Dental Screen Date: 07/02/23 HPI Diabetes f/u HPI Details Pt is a diabetic, on a statin. A1C in office today is 8.5. Due for microalbumin, will order. Denies polyuria, polydipsia, and neuropathy. Pt denies any signs and symptoms of hypoglycemia and does know how to correct it. Pt is currently taking novolin 79 units in the morning and 59 units at night. Will increase this to 85 units in the morning and 65 units at night. Eye exam is up to date. PFSH Medical History Hypothyroidism Type 1 diabetes COVID Atherosclerotic cardiovascular disease Screening PSA (prostate specific antigen) Hyperlipidemia Hypertension Anxiety Pancreatitis Surgical History S/P CABG x 2 Social History Housing: Apartment Alcohol intake: unknown Patient Tobacco Use Status: Never used Tobacco e-Cigarette/Vaping Use: Never Used Second Hand Smoke Exposure: Yes Current occupational status: retired Cognitive needs: No Hearing needs: No Vision needs: No Questionnaire Thrive Questionnaire Date Thrive assessed: 07/02/23 NAGI-7 AMB Questionnaire NAGI-7 Date NAGI - 7 assessed: 07/02/23 Source: Developed by Drs. Good Gonzalez, Wilda Holt, Sahil Walden and colleagues, with an educational michael from [employer]. Review of Systems Const Reports as per HPI Physical exam (Primary Care) Vital Signs: Last Vital Signs Pulse 68 10/15/23 14:16 BP 120/82 10/15/23 14:16 Pulse Ox 98 10/15/23 14:16 Oxygen Delivery Method Room Air 10/15/23 14:16 BMI result Body Mass Index 31.6 Tobacco/Smoking Status: Tobacco use Status Tobacco use date assessed 07/02/23 10/15/23 14:16 Patient Tobacco Use Status Never used Tobacco 10/15/23 14:16 e-Cigarette/Vaping Use Never Used 10/15/23 14:16 Thrive Assessment: Date of Thrive Assessment Date Thrive assessed 07/02/23 10/15/23 14:16 Const General: cooperative Nutritional Appearance: obese Orientation/consciousness: patient oriented x3 Resp Effort & Inspection: normal respiratory effort Auscultation: clear to auscultation bilaterally Cardio Rate: regular rate Rhythm: regular rhythm Heart sounds: S1 normal heart sound present and S2 normal heart sound present Neuro General: patient oriented x3 Extrem Other: bilat feet: + sensation with use of monofilament, feet intact Psych Appearance: grossly normal Mental Status: mental status grossly normal Speech and movement: Normal speech and movement present Affect: normal affect Attitude: cooperative Thought process: Normal thought process present Thought content: Normal thought content present Insight: Good insight present (Psych) Judgement: Good judgement present (Psych) Results AMB Hemoglobin A1c AMB Hemoglobin A1c 8.5 % Last Edit by VALENCIA Tinoco on 10/15/23 14 :42 Results Reviewed Results Reviewed: Laboratory Last Values Hgb A1c (Clinic) 8.5 % (4.0-6.0) H 10/15/23 14:40 Assessment and Plan Assessment & Plan (1) Type 2 diabetes mellitus with unspecified complications: Code(s): E11.8 - Type 2 diabetes mellitus with unspecified complications Plan: Labs ordered, increasing novolin (2) Elevated serum creatinine: Code(s): R79.89 - Other specified abnormal findings of blood chemistry Plan: referred to nephrology Plan The patient agreed to the use of a medical appointment scheduler for this encounter. Scribed for TERENCE Rosales by Davida Guan medical appointment scheduler, on 10/15/2023 at 14:30 EST. Orders: Orders Comprehensive [place]. Panel Fast Today E11.8 - Type 2 diabetes mellitus with unspecified complications TSH reflex Free T4 Today E11.8 - Type 2 diabetes mellitus with unspecified complications UA CC w/rflx Micro + Cult Today E11.8 - Type 2 diabetes mellitus with unspecified complications Microalbumin, Random (w Creat) Today E11.8 - Type 2 diabetes mellitus with unspecified complications Complete Blood Count Auto Diff Today E11.8 - Type 2 diabetes mellitus with unspecified complications Lipid Panel Today E11.8 - Type 2 diabetes mellitus with unspecified complications Prostate Specific Antigen Scr Today E11.8 - Type 2 diabetes mellitus with unspecified complications AMB Hemoglobin A1c Today E11.8 - Type 2 diabetes mellitus with unspecified complications Referrals Nephrology Referral R79.89 - Other specified abnormal findings of blood chemistry Medications: Changed From insulin NPH and regular human 100 unit/mL (70-30) (Novolin 70/30 U-100 Insulin) 79 units in AM and 59 units in PM subcut daily; 90 days 90 mL 1RF E11.9 - Type 2 diabetes mellitus without complications To insulin NPH and regular human 100 unit/mL (70-30) (Novolin 70/30 U-100 Insulin) 85 units in AM and 65 units in PM subcut daily; 90 days 90 mL 1RF E11.9 - Type 2 diabetes mellitus without complications Coding Level of Care Code Est Pt Level 3 (42912) Diagnoses Type 2 diabetes mellitus with unspecified complications E11.8 Elevated serum creatinine R79.89
[2023-10-15 14:16] VITALS: BP 120/82; PULSE 68; O2SAT 98; BMI 31.6
== END 2023-10-15 14:45 | disposition home or self-care (01) ==
PROVIDERS: PCP Nurse Practitioner Family; Visit Provider Nurse Practitioner Family
DX: E11.8 Type 2 diabetes mellitus with unspecified complications (principal); R79.89 Other specified abnormal findings of blood chemistry
CPT/HCPCS: 83036; 99213

== ENCOUNTER 2023-10-20 07:12 | Outpatient (REF) | payer MEDICARE, MEDICAID, SELFPAY ==
[2023-10-20 10:30] LABS: MANUAL DIFF FLAG NO
[2023-10-20 10:41] LABS: Basophils Percent Auto 0.3 % (0-2); Eosinophils Absolute Auto 0.4 X10*3/uL (0.0-0.4); Eosinophils Percent Auto 4.9 % (0-4); Hemoglobin 13.6 g/dl (14.0-18.0); Imm Gran Abs Auto 0.06 X10*3/uL (0.00-0.03); Imm Gran Pct Auto 0.7 % (0.0-0.4); Lymphocytes Absolute Auto 2.6 X10*3/uL (1.2-4.9); Lymphocytes Percent Auto 29.8 % (20-40); Mean Corpuscular HGB Conc 32.4 g/dl (31.0-36.0); Mean Corpuscular Hemoglobin 29.9 pg (27.0-33.0); Mean Corpuscular Volume 92.3 fL (80.0-98.0); Mean Platelet Volume 11.4 fL (9.4-12.4); Monocytes Absolute Auto 0.5 X10*3/uL (0.1-1.2); Monocytes Percent Auto 6.2 % (2-11); Neutrophils Percent Auto 58.1 % (45-73); Platelet Count 186 X10*3/uL (160-400); Red Blood Count 4.55 X10*6/uL (4.60-5.80); Red Cell Distribution Width 13.3 % (11.0-16.0); White Blood Count 8.6 X10*3/uL (4.8-10.8)
[2023-10-20 10:47] LABS: Appearance Urine Clear; Color Urine Yellow; Glucose Urine UA Negative (Negative); Leukocyte Esterase Urine Negative (Negative); Nitrite Urine Negative (Negative); Urine Blood Negative (Negative); Urine Ketones Negative (Negative); Urine Protein Negative (Neg-Trace)
[2023-10-20 11:15] LABS: Creatinine Urine 130.72 mg/dL; Microalbum/Creatinine Ratio Ur 7.6 ug/mg cr (<30)
[2023-10-20 11:36] LABS: Alanine Aminotransferase 26 U/L (0-40); Alkaline Phosphatase 88 U/L (39-117); Anion Gap 14 (12-20); Aspartate Amino Transferase 33 U/L (5-37); Bilirubin Total 0.9 mg/dL (0.0-1.0); Blood Urea Nitrogen 16 mg/dL (9-16); Calcium 9.5 mg/dL (8.4-10.2); Carbon Dioxide 29 mmol/L (22-29); Chloride 102 mmol/L (96-108); Cholesterol 109 mg/dL (<200); Estimated Glomerular Filt Rate > 60; Glucose Fasting 185 mg/dL (60-99); HDL Cholesterol 39 mg/dL (>40); LDL Cholesterol Calculated 38 mg/dL (<100); Potassium 3.5 mmol/L (3.3-5.1); Sodium 141 mmol/L (135-145); Total Protein 7.1 g/dL (6.5-8.0); Triglycerides 162 mg/dL (<150)
[2023-10-20 11:53] LABS: Prostate Specific Antigen Scr 2.13 ng/mL (<0.05-4.0)
== END 2023-10-20 07:13 | disposition home or self-care (01) ==
LOC: HO.HMGCLDS 07:12
PROVIDERS: PCP Nurse Practitioner Family; Visit Provider Nurse Practitioner Family
DX: Z12.5 Encounter for screening for malignant neoplasm of prostate (principal); E11.8 Type 2 diabetes mellitus with unspecified complications
CPT/HCPCS: 36415; 80053; 80061; 81003; 82043; 82570; 84153; 84443; 85025

== ENCOUNTER 2024-01-28 12:45 | Outpatient (AMB) | payer MEDICARE, MEDICAID, SELFPAY ==
--- NOTE | 2024-01-28 12:54 | MHC.OFFWIV ---
Intake Vital Signs 01/28/24 12:55 Height 5 ft 5 in Weight 191 lb BMI 31.8 BP 122/84 Blood Pressure Location Lt brachial Position Sitting Pulse 90 Pulse Source Pulse Oximeter Temp 98.3 F Temp Source Oral Pulse Oximetry (%) 98 Oxygen Delivery Method Room Air Intake Visit Reasons: EP Left Leg pain Intake Note: pt c/o LT leg pain. Started this morning. Walking and felt a pop Patient Tobacco Use Status: Never used Tobacco Allergies ciprofloxacin [From CIPRO] Allergy (Unknown, Verified 01/28/24 13:00) UNKNOWN doxycycline [DOXYCYCLINE] Allergy (Unknown, Verified 01/28/24 13:00) UNKNOWN prednisone [PREDNISONE] Allergy (Unknown, Verified 01/28/24 13:00) UNKNOWN iron Adverse Reaction (Verified 01/28/24 13:00) Vomiting NUMBING MEDICATION Allergy (Severe, Uncoded 01/28/24 13:00) HEART STOPPED From DETROL Allergy (Unknown, Uncoded 01/28/24 13:00) UNKNOWN From LESCOL Allergy (Unknown, Uncoded 01/28/24 13:00) UNKNOWN Medication List - Last Reconciled 01/28/24 by Patti Bartlett MD alcohol swabs (Alcohol Prep Pads) 1 pad topical TID aspirin 81 mg PO DAILY blood sugar diagnostic (Accu-Chek Soo Plus test strips) USE TO TEST THREE TIMES A DAY DIRECTED cyclobenzaprine 10 mg PO BEDTIME PRN [diabetic shoes As directed for diabetes] famotidine 20 mg PO DAILY flash glucose scanning reader (FreeStyle Minna 2 [place]) tid flash glucose sensor (FreeStyle Minna 2 Sensor kit) Tetst blood sugar 3 times per day hydrochlorothiazide 25 mg PO QAM 90 days insulin NPH and regular human 100 unit/mL (70-30) (Novolin 70/30 U-100 Insulin) 85 units in AM and 65 units in PM subcut daily; 90 days insulin syringe-needle U-100 use 1 syringe BID for insulin injections levothyroxine 112 mcg PO DAILY lidocaine 4% 1 patch topical DAILY PRN [id number] 15,000-47,000 -63,000 unit (Zenpep) 1 cap PO TID metoprolol succinate ER 50 mg PO DAILY 90 days pantoprazole 20 mg PO DAILY potassium chloride ER 10 mEq PO DAILY 90 days pravastatin 80 mg PO BEDTIME Shower Chair shower chair with backrest terazosin 5 mg PO BEDTIME ursodiol 300 mg PO BID Do you need a note to return to daycare/school/sports/work: No HPI EP Left Leg pain HPI Details Patient is a 68 year old gentleman came in today to be evaluated for pain left lower leg which started suddenly today when he was getting 2 gal of antifreeze to his car from [facility] Patient is having difficulty walking because of the pain. He is on aspirin due to cardiac condition On examination he has a calf pain with palpation There are no skin changes, knee range of motion is intact Homans sign is negative Plan: Since it is a sudden onset of pain I am going to treated as muscular I have sent muscle relaxer with the patient along with pain medication He has appointment coming up with the primary care on Friday. Patient will let me know if in the morning his pain worsen We will need an ultrasound of his lower leg then [facility] Medical History Hypothyroidism Type 1 diabetes COVID Atherosclerotic cardiovascular disease Screening PSA (prostate specific antigen) Hyperlipidemia Hypertension Anxiety Pancreatitis Surgical History S/P CABG x 2 Social History Housing: Apartment Alcohol intake: unknown Patient Tobacco Use Status: Never used Tobacco e-Cigarette/Vaping Use: Never Used Second Hand Smoke Exposure: Yes Current occupational status: retired Cognitive needs: No Hearing needs: No Vision needs: No Review of Systems Const All systems reviewed & are unremarkable except as noted in HPI and below Physical Exam Vital Signs: Last Vital Signs Temp 98.3 F 01/28/24 12:55 Pulse 90 01/28/24 12:55 BP 122/84 01/28/24 12:55 Pulse Ox 98 01/28/24 12:55 Oxygen Delivery Method Room Air 01/28/24 12:55 BMI result Body Mass Index 31.8 Const General: no acute distress Orientation/consciousness: patient oriented x3 Eyes General: appearance normal, both eyes and all related structures Resp Effort & Inspection: normal respiratory effort and able to speak in complete sentences Neuro General: patient oriented x3 Extrem Upper/lower leg/hip images: 1. Pain with palpation over soleus muscle left Psych Mental Status: mental status grossly normal Assessment & Plan Assessment & Plan (1) Strain of left soleus muscle: Code(s): S86.112A - Strain of other muscle(s) and tendon(s) of posterior muscle group at lower leg level, left leg, initial encounter Qualifiers: Encounter type: initial encounter Qualified Code(s): S86.112A - Strain of other muscle(s) and tendon(s) of posterior muscle group at lower leg level, left leg, initial encounter Plan Patient is a 68 year old gentleman came in today to be evaluated for pain left lower leg which started suddenly today when he was getting 2 gal of antifreeze to his car from [employer] Patient is having difficulty walking because of the pain. He is on aspirin due to cardiac condition On examination he has a calf pain with palpation There are no skin changes, knee range of motion is intact Homans sign is negative Plan: Since it is a sudden onset of pain I am going to treated as muscular I have sent muscle relaxer with the patient along with pain medication He has appointment coming up with the primary care on Friday. Patient will let me know if in the morning his pain worsen We will need an ultrasound of his lower leg then Medications: Refilled cyclobenzaprine 10 mg PO BEDTIME PRN 14 tabs 0RF muscle spasm cyclobenzaprine 10 mg PO BEDTIME PRN 14 tabs 0RF muscle spasm tramadol 50 mg PO BID 7 days PRN 14 tabs 0RF pain Coding Level of Care Code Est Pt Level 3 (22372) Diagnoses Strain of left soleus muscle, initial encounter S86.112A Encounter type: initial encounter
[2024-01-28 12:55] VITALS: BP 122/84; PULSE 90; TEMP 36.8; O2SAT 98; BMI 31.8
== END 2024-01-28 13:31 | disposition home or self-care (01) ==
PROVIDERS: PCP Nurse Practitioner Family; Visit Provider Internal Medicine
DX: S86.112A Strain of other muscle(s) and tendon(s) of posterior muscle group at lower leg level, left leg, initial encounter (principal)
CPT/HCPCS: 99213

== ENCOUNTER 2024-02-02 10:39 | Outpatient (AMB) | payer MEDICARE, MEDICAID, SELFPAY ==
[2024-02-02 10:43] VITALS: BP 120/74; PULSE 94; O2SAT 97; BMI 31.7
--- NOTE | 2024-02-02 10:43 | MHC.PC.OV ---
Vital Signs 02/02/24 10:43 Height 5 ft 5 in Weight 190 lb 4 oz BMI 31.7 BP 120/74 Blood Pressure Location Lt brachial Position Sitting Pulse 94 Pulse Source Pulse Oximeter Pulse Oximetry (%) 97 Oxygen Delivery Method Room Air Intake Visit Reasons: Diabetes f/u Intake Note: pt is here for follow up regarding DM, A1c done in office today, 8.1 % First Cook Required: No Accompanied by: Self / Same As Patient Allergies ciprofloxacin [From CIPRO] Allergy (Unknown, Verified 02/02/24 10:43) UNKNOWN doxycycline [DOXYCYCLINE] Allergy (Unknown, Verified 02/02/24 10:43) UNKNOWN prednisone [PREDNISONE] Allergy (Unknown, Verified 02/02/24 10:43) UNKNOWN iron Adverse Reaction (Verified 02/02/24 10:43) Vomiting NUMBING MEDICATION Allergy (Severe, Uncoded 01/28/24 13:00) HEART STOPPED From DETROL Allergy (Unknown, Uncoded 01/28/24 13:00) UNKNOWN From LESCOL Allergy (Unknown, Uncoded 01/28/24 13:00) UNKNOWN Medication List - Last Reconciled 02/02/24 by VIRI GalanP- alcohol swabs (Alcohol Prep Pads) 1 pad topical TID aspirin 81 mg PO DAILY blood sugar diagnostic (Accu-Chek Soo Plus test strips) USE TO TEST THREE TIMES A DAY DIRECTED cyclobenzaprine 10 mg PO BEDTIME PRN cyclobenzaprine 10 mg PO BEDTIME PRN [diabetic shoes As directed for diabetes] famotidine 20 mg PO DAILY flash glucose scanning reader (FreeStyle Minna 2 Gunlock) tid flash glucose sensor (FreeStyle Minna 2 Sensor kit) Tetst blood sugar 3 times per day hydrochlorothiazide 25 mg PO QAM 90 days insulin NPH and regular human 100 unit/mL (70-30) (Novolin 70/30 U-100 Insulin) 92 units in AM and 58 units in PM subcut daily; 90 days insulin syringe-needle U-100 use 1 syringe BID for insulin injections levothyroxine 112 mcg PO DAILY lidocaine 4% 1 patch topical DAILY PRN jugclc-ynsjtlyr-gtpsuoy 15,000-47,000 -63,000 unit (Zenpep) 1 cap PO TID metoprolol succinate ER 50 mg PO DAILY 90 days pantoprazole 20 mg PO DAILY potassium chloride ER 10 mEq PO DAILY 90 days pravastatin 80 mg PO BEDTIME Shower Chair shower chair with backrest terazosin 5 mg PO BEDTIME tramadol 50 mg PO BID PRN 7 days ursodiol 300 mg PO BID Tobacco use date assessed: 07/02/23 Fall risk assessment: No Falls in past year Last assessed Fall Risk: 02/02/24 Dental Screening Dental Screen Date: 07/02/23 HPI Diabetes f/u HPI Details Pt is a diabetic, on a statin. A1C in office today is 8.1. Microalbumin is up to date. Denies polyuria, polydipsia, and neuropathy. Pt does report periods of hypoglycemia and does know how to correct it. Pt is interested in a glucose sensor, will work on this. Will increase pt's morning insulin from 85 to 92 units and decrease night insulin from 65 to 58 units. Starting a VAN for renal protection (low dose). Pt will follow up with a MD for diabetic shoes. May consider a GLP-1 agonist in the future. PFSH Medical History Hypothyroidism Type 1 diabetes COVID Atherosclerotic cardiovascular disease Screening PSA (prostate specific antigen) Hyperlipidemia Hypertension Anxiety Pancreatitis Surgical History S/P CABG x 2 Social History Housing: Apartment Alcohol intake: unknown Patient Tobacco Use Status: Never used Tobacco e-Cigarette/Vaping Use: Never Used Second Hand Smoke Exposure: Yes Current occupational status: retired Cognitive needs: No Hearing needs: No Vision needs: No Questionnaire PHQ-9 Over the last 2 weeks, how often have you been bothered by any of the following problems? 52563 - PHQ-9 Billing: Patient declined-do not bill Source: Developed by Drs. Good Gonzalez, Sahil Nguyen and colleagues, with an educational michael from [employer]. Thrive Questionnaire Date Thrive assessed: 07/02/23 NAGI-7 AMB Questionnaire NAGI-7 Date NAGI - 7 assessed: 07/02/23 Source: Developed by Drs. Good Gonzalez, Sahil Nguyen and colleagues, with an educational michael from [employer]. Review of Systems Const Reports as per HPI Physical exam (Primary Care) Vital Signs: Last Vital Signs Pulse 94 02/02/24 10:43 BP 120/74 02/02/24 10:43 Pulse Ox 97 02/02/24 10:43 Oxygen Delivery Method Room Air 02/02/24 10:43 BMI result Body Mass Index 31.7 Tobacco/Smoking Status: Tobacco use Status Tobacco use date assessed 07/02/23 02/02/24 10:44 Patient Tobacco Use Status Never used Tobacco 02/02/24 10:44 e-Cigarette/Vaping Use Never Used 02/02/24 10:44 Thrive Assessment: Date of Thrive Assessment Date Thrive assessed 07/02/23 02/02/24 10:44 Const General: cooperative Nutritional Appearance: obese Orientation/consciousness: patient oriented x3 Resp Effort & Inspection: normal respiratory effort Auscultation: clear to auscultation bilaterally Cardio Rate: regular rate Rhythm: regular rhythm Heart sounds: S1 normal heart sound present and S2 normal heart sound present Neuro General: patient oriented x3 Extrem Other: bilat feet: + sensation with use of monofilament, small callus to left foot plantar aspect of 1st MTP joint, otherwise feet intact Psych Appearance: grossly normal Mental Status: mental status grossly normal Speech and movement: Normal speech and movement present Affect: normal affect Attitude: cooperative Thought process: Normal thought process present Thought content: Normal thought content present Insight: Good insight present (Psych) Judgement: Good judgement present (Psych) Results AMB Hemoglobin A1c AMB Hemoglobin A1c 8.1 % Last Edit by Candelario Anand CMA on 02/02/24 11:02 Results Reviewed Results Reviewed: Laboratory Last Values Hgb A1c (Clinic) 8.1 % (4.0-6.0) H 02/02/24 10:52 Assessment and Plan Assessment & Plan (1) Type 2 diabetes mellitus with unspecified complications: Code(s): E11.8 - Type 2 diabetes mellitus with unspecified complications Plan The patient agreed to the use of a medical imaging technician for this encounter. Scribed for TERENCE Rosales by Davida Gaun medical imaging technician, on 02/02/2024 at 11:15 EST. Orders: Orders Comprehensive [place]. Panel Fast Today E11.8 - Type 2 diabetes mellitus with unspecified complications TSH reflex Free T4 Today E11.8 - Type 2 diabetes mellitus with unspecified complications UA CC w/rflx Micro + Cult Today E11.8 - Type 2 diabetes mellitus with unspecified complications Lipid Panel Today E11.8 - Type 2 diabetes mellitus with unspecified complications AMB Hemoglobin A1c Today Z13.9 - Encounter for screening, unspecified Complete Blood Count Auto Diff Today E11.8 - Type 2 diabetes mellitus with unspecified complications Medications: New lisinopril 2.5 mg PO DAILY 90 tabs 0RF Changed From insulin NPH and regular human 100 unit/mL (70-30) (Novolin 70/30 U-100 Insulin) 85 units in AM and 65 units in PM subcut daily; 90 days 90 mL 1RF E11.9 - Type 2 diabetes mellitus without complications To insulin NPH and regular human 100 unit/mL (70-30) (Novolin 70/30 U-100 Insulin) 92 units in AM and 58 units in PM subcut daily; 90 days 90 mL 1RF E11.9 - Type 2 diabetes mellitus without complications Coding Level of Care Code Est Pt Level 3 (60839) Diagnoses Type 2 diabetes mellitus with unspecified complications E11.8
== END 2024-02-02 13:10 | disposition home or self-care (01) ==
PROVIDERS: PCP Nurse Practitioner Family; Visit Provider Nurse Practitioner Family
DX: E11.8 Type 2 diabetes mellitus with unspecified complications (principal); Z13.9 Encounter for screening, unspecified
CPT/HCPCS: 83036; 99213

== ENCOUNTER 2024-03-27 07:20 | Outpatient (REF) | payer MEDICARE, MEDICAID, SELFPAY ==
[2024-03-27 10:59] LABS: MANUAL DIFF FLAG NO
[2024-03-27 11:21] LABS: Basophils Percent Auto 0.4 % (0-2); Eosinophils Absolute Auto 0.5 X10*3/uL (0.0-0.4); Eosinophils Percent Auto 6.5 % (0-4); Hematocrit 37.9 % (42.0-52.0); Hemoglobin 12.5 g/dl (14.0-18.0); Imm Gran Abs Auto 0.05 X10*3/uL (0.00-0.03); Imm Gran Pct Auto 0.7 % (0.0-0.4); Lymphocytes Absolute Auto 2.2 X10*3/uL (1.2-4.9); Lymphocytes Percent Auto 29.2 % (20-40); Mean Corpuscular Hemoglobin 30.3 pg (27.0-33.0); Mean Platelet Volume 11.6 fL (9.4-12.4); Monocytes Absolute Auto 0.5 X10*3/uL (0.1-1.2); Monocytes Percent Auto 7.2 % (2-11); Neutrophils Absolute Auto 4.2 x10*3/uL (2.0-8.3); Platelet Count 168 X10*3/uL (160-400); Red Blood Count 4.12 X10*6/uL (4.60-5.80); Red Cell Distribution Width 13.6 % (11.0-16.0); White Blood Count 7.5 X10*3/uL (4.8-10.8)
[2024-03-27 11:47] LABS: Appearance Urine Clear; Color Urine Yellow; Glucose Urine UA >=1000 mg/dL (Negative); Leukocyte Esterase Urine Negative (Negative); Nitrite Urine Negative (Negative); PH 5.5 (5.0-9.0); Specific Gravity - Urine 1.025 (1.005-1.025); UMIC TRIGGER UACC YES; Urine Blood Negative (Negative); Urine Ketones Negative (Negative); Urine Protein Negative (Neg-Trace)
[2024-03-27 11:50] LABS: Alanine Aminotransferase 24 U/L (0-40); Albumin Level 3.9 g/dL (3.5-5.0); Alkaline Phosphatase 96 U/L (39-117); Anion Gap 13 (12-20); Aspartate Amino Transferase 31 U/L (5-37); Bilirubin Total 0.8 mg/dL (0.0-1.0); Blood Urea Nitrogen 20 mg/dL (9-16); Calcium 9.1 mg/dL (8.4-10.2); Carbon Dioxide 25 mmol/L (22-29); Chloride 105 mmol/L (96-108); Cholesterol 119 mg/dL (<200); Estimated Glomerular Filt Rate 46; Glucose Fasting 325 mg/dL (60-99); HDL Cholesterol 36 mg/dL (>40); Iron 87 mcg/dL (45-160); LDL Cholesterol Calculated 30 mg/dL (<100); Percent Iron Saturation 31 % (15-50); Sodium 139 mmol/L (135-145); Total Iron Binding Capacity 279 mcg/dL (228-428); Total Protein 6.8 g/dL (6.5-8.0); Triglycerides 265 mg/dL (<150); Unsaturated Iron Binding 192 ug/dL
[2024-03-27 11:53] LABS: Bacteria Urine None Seen (None Seen); Hyaline Casts Urine 0-2 /LPF (0-2); RBC Urine 0-2 /HPF (0-2); Squamous Epithelial Cell Urine 0-2 /HPF (0-2); WBC Urine 0-5 /HPF (0-5)
[2024-03-27 12:11] LABS: Ferritin 56 ng/mL (20-250); TSH reflex Free T4 3.45 uIU/mL (0.32-4.0)
== END 2024-03-27 07:21 | disposition home or self-care (01) ==
LOC: HO.HMGCLDS 07:20
PROVIDERS: PCP Nurse Practitioner Family; Visit Provider Nurse Practitioner Family
DX: E11.8 Type 2 diabetes mellitus with unspecified complications (principal); D64.9 Anemia, unspecified
CPT/HCPCS: 36415; 80053; 80061; 81001; 82728; 83540; 84443; 85025

== ENCOUNTER 2024-04-05 09:02 | Outpatient (REF) | payer MEDICARE, MEDICAID, SELFPAY ==
[2024-04-05 10:33] LABS: Alanine Aminotransferase 22 U/L (0-40); Alkaline Phosphatase 82 U/L (39-117); Anion Gap 13 (12-20); Aspartate Amino Transferase 26 U/L (5-37); Bilirubin Total 0.9 mg/dL (0.0-1.0); Blood Urea Nitrogen 19 mg/dL (9-16); Calcium 9.3 mg/dL (8.4-10.2); Carbon Dioxide 25 mmol/L (22-29); Chloride 105 mmol/L (96-108); Estimated Glomerular Filt Rate 56; Glucose Random 207 mg/dL (60-115); Potassium 3.8 mmol/L (3.3-5.1); Sodium 139 mmol/L (135-145); Total Protein 6.7 g/dL (6.5-8.0)
[2024-04-05 10:38] LABS: Appearance Urine Clear; Color Urine Yellow; Glucose Urine UA Negative (Negative); Leukocyte Esterase Urine Negative (Negative); Nitrite Urine Negative (Negative); PH 5.5 (5.0-9.0); Urine Blood Negative (Negative); Urine Ketones Negative (Negative); Urine Protein Negative (Neg-Trace)
== END 2024-04-05 09:03 | disposition home or self-care (01) ==
LOC: HO.HMGCLDS 09:02
PROVIDERS: PCP Nurse Practitioner Family; Visit Provider Nurse Practitioner Family
DX: E11.8 Type 2 diabetes mellitus with unspecified complications (principal); R79.89 Other specified abnormal findings of blood chemistry
CPT/HCPCS: 36415; 80053; 81003

== ENCOUNTER 2024-05-10 13:13 | Outpatient (AMB) | payer MEDICARE, MEDICAID, SELFPAY ==
--- NOTE | 2024-05-10 13:42 | AM.OFFWIN_ITS ---
Intake Vital Signs 05/10/24 13:43 05/10/24 14:08 05/10/24 14:09 05/10/24 14:10 Height 5 ft 5 in Weight 193 lb BMI 32.1 BP 128/84 132/78 120/86 138/84 Blood Pressure Location Lt brachial Rt brachial Rt brachial Rt brachial Position Sitting Supine Sitting Standing Pulse 83 87 77 86 Pulse Source Pulse Oximeter Pulse Oximeter Pulse Oximeter Pulse Oximeter Pulse Oximetry (%) 97 97 97 97 Oxygen Delivery Method Room Air Room Air Room Air Room Air Intake Visit Reasons: EP dizziness, recently had a heart attack Patient Tobacco Use Status: Never used Tobacco Allergies ciprofloxacin [From CIPRO] Allergy (Unknown, Verified 05/10/24 13:43) UNKNOWN doxycycline [DOXYCYCLINE] Allergy (Unknown, Verified 05/10/24 13:43) UNKNOWN prednisone [PREDNISONE] Allergy (Unknown, Verified 05/10/24 13:43) UNKNOWN iron Adverse Reaction (Verified 05/10/24 13:43) Vomiting NUMBING MEDICATION Allergy (Severe, Uncoded 05/10/24 13:43) HEART STOPPED From DETROL Allergy (Unknown, Uncoded 05/10/24 13:43) UNKNOWN From LESCOL Allergy (Unknown, Uncoded 05/10/24 13:43) UNKNOWN Do you need a note to return to daycare/school/sports/work: No HPI HPI Comments History of Present Illness Details Patient is a 69-year-old male complaining of dizziness over the 3 weeks. He states he also got new glasses 3 weeks ago. However he states he is dizzy when he wakes up and gets out of bed and he is not wearing his glasses during this time. He says it is worse when he is also bending over. He tells me he has also recently been constipated and has been taking Colace. He tells me he drinks 16 oz of water per day and that has not changed recently. He denies any headaches, vision changes, nausea, vomiting, chest pain or heart palpitations. PFSH Medical History Hypothyroidism Type 1 diabetes COVID Atherosclerotic cardiovascular disease Screening PSA (prostate specific antigen) Hyperlipidemia Hypertension Anxiety Pancreatitis Surgical History S/P CABG x 2 Social History Housing: Apartment Alcohol intake: unknown Patient Tobacco Use Status: Never used Tobacco e-Cigarette/Vaping Use: Never Used Second Hand Smoke Exposure: Yes Current occupational status: retired Cognitive needs: No Hearing needs: No Vision needs: No Review of Systems Const All systems reviewed & are unremarkable except as noted in HPI and below Physical Exam Vital Signs: Last Vital Signs Pulse 86 05/10/24 14:10 BP 138/84 05/10/24 14:10 Pulse Ox 97 05/10/24 14:10 Oxygen Delivery Method Room Air 05/10/24 14:10 BMI result Body Mass Index 32.1 Const General: cooperative, healthy appearing, comfortable, no acute distress and well developed Nutritional Appearance: average body habitus Orientation/consciousness: patient oriented x3 Limitations: no limitations HEENT Head: Yes normal to inspection Ears: hearing grossly normal bilaterally General nose exam: Normal external nose present Face and sinus: Yes normal facial exam Eyes General: appearance normal, both eyes and all related structures Pupils: Equal, round and reactive pupils present Neck Neck: Yes normal visual inspection and Yes full ROM Resp Effort & Inspection: normal respiratory effort and able to speak in complete sentences Auscultation: clear to auscultation bilaterally Cardio Rate: regular rate Rhythm: regular rhythm Heart sounds: normal S1 and S2 Skin General skin exam: no rashes or lesions noted Neuro General: patient oriented x3 Cranial nerves: Yes Equal, round and reactive pupils present, Yes Bilaterally intact EOM present and Yes Nystagmus not present Cognition (Neuro): normal cognition Gait exam (Neuro): Normal gait present Extrem General: Yes normal to inspection Assessment & Plan Assessment & Plan (1) Dizziness: Code(s): R42 - Dizziness and giddiness Plan: Orthostatics negative for orthostatic hypotension, did recommend he increase his fluid intake to at least 2 water bottles a day from 1 bottle bottle and possi amrita 3 as long as he does not have any heart failure what she states he does not have. His dizziness could also be secondary to his new glasses so he should follow up with his financial services auditor, Dr. Schroeder. Plan See above Coding Level of Care Code Est Pt Level 4 (50502) Diagnoses Dizziness R42
[2024-05-10 13:43] VITALS: BP 128/84; PULSE 83; O2SAT 97; BMI 32.1
[2024-05-10 14:08] VITALS: BP 132/78; PULSE 87; O2SAT 97
[2024-05-10 14:09] VITALS: BP 120/86; PULSE 77; O2SAT 97
[2024-05-10 14:10] VITALS: BP 138/84; PULSE 86; O2SAT 97
== END 2024-05-10 14:50 | disposition home or self-care (01) ==
PROVIDERS: PCP Nurse Practitioner Family; Visit Provider Physician Assistant
DX: R42 Dizziness and giddiness (principal)

== ENCOUNTER → 2024-05-10 13:13 | Outpatient (BNVA) | payer MEDICARE, MEDICAID, SELFPAY | PROVIDERS: PCP Nurse Practitioner Family; Visit Provider Physician Assistant | DX: R42 Dizziness and giddiness (principal) | CPT/HCPCS: 99212 ==

== ENCOUNTER 2024-05-26 13:16 | Outpatient (AMB) | payer MEDICARE, MEDICAID, SELFPAY ==
--- NOTE | 2024-05-26 13:56 | AM.OFFWIN_ITS ---
Intake Vital Signs 05/26/24 14:07 Weight 193 lb BP 124/80 Blood Pressure Location Lt brachial Position Sitting Pulse 85 Pulse Source Pulse Oximeter Pulse Oximetry (%) 98 Oxygen Delivery Method Room Air Intake Visit Reasons: EP LT pain Intake Note: Patient here for left leg pain that started this morning. Patient Tobacco Use Status: Never used Tobacco Allergies ciprofloxacin [From CIPRO] Allergy (Unknown, Verified 05/26/24 14:06) UNKNOWN doxycycline [DOXYCYCLINE] Allergy (Unknown, Verified 05/26/24 14:06) UNKNOWN prednisone [PREDNISONE] Allergy (Unknown, Verified 05/26/24 14:06) UNKNOWN iron Adverse Reaction (Verified 05/26/24 14:06) Vomiting NUMBING MEDICATION Allergy (Severe, Uncoded 05/26/24 14:06) HEART STOPPED From DETROL Allergy (Unknown, Uncoded 05/26/24 14:06) UNKNOWN From LESCOL Allergy (Unknown, Uncoded 05/26/24 14:06) UNKNOWN Do you need a note to return to daycare/school/sports/work: No HPI EP LT pain HPI Details This note is constructed using voice recognition software. While every effort has been made to ensure accuracy, air brush decorator errors may have been included. The patient is a 69 year old male who presents to the clinic today with left lower leg spasm. He notes he has had this in the past, and has been treated with muscle relaxers. He notes that this started this morning, and is pretty intermittent, and extreme when it happens. He denies any falls, injuries to the area. He has not had any previous surgeries to the area. He feels the spasm, the pain comes with a spasm, and as the spasm resolves the pain goes away. He h as taken Tylenol to help the pain which seemed to help some. [facility] Medical History Hypothyroidism Type 1 diabetes COVID Atherosclerotic cardiovascular disease Screening PSA (prostate specific antigen) Hyperlipidemia Hypertension Anxiety Pancreatitis Surgical History S/P CABG x 2 Social History Housing: Apartment Alcohol intake: unknown Patient Tobacco Use Status: Never used Tobacco e-Cigarette/Vaping Use: Never Used Second Hand Smoke Exposure: Yes Current occupational status: retired Cognitive needs: No Hearing needs: No Vision needs: No Review of Systems Const All systems reviewed & are unremarkable except as noted in HPI and below Physical Exam Vital Signs: Last Vital Signs Pulse 85 05/26/24 14:07 BP 124/80 05/26/24 14:07 Pulse Ox 98 05/26/24 14:07 Oxygen Delivery Method Room Air 05/26/24 14:07 Const General: cooperative, healthy appearing, comfortable, no acute distress and well developed Orientation/consciousness: patient oriented x3 Limitations: no limitations HEENT Head: Yes normal to inspection Ears: hearing grossly normal bilaterally General nose exam: Normal external nose present Face and sinus: Yes normal facial exam Eyes General: appearance normal, both eyes and all related structures Neck Neck: Yes normal visual inspection and Yes full ROM Resp Effort & Inspection: normal respiratory effort and able to speak in complete sentences Skin General skin exam: no rashes or lesions noted Neuro General: patient oriented x3 Extrem Other: Full range of motion. Achilles intact. Homans negative. Increased muscle bulging over left lower leg posterior muscles in entirety. Distal neurovascular exam intact. General: Yes normal to inspection Assessment & Plan Assessment & Plan (1) Strain of left soleus muscle: Code(s): S86.112A - Strain of other muscle(s) and tendon(s) of posterior muscle group at lower leg level, left leg, initial encounter Qualifiers: Encounter type: initial encounter Qualified Code(s): S86.112A - Strain of other muscle(s) and tendon(s) of posterior muscle group at lower leg level, left leg, initial encounter Plan: Advised Devon wrap for symptomatic management. Prescription provided for prednisone for anti-inflammatory effects, as well as cyclobenzaprine for muscle relaxer. Advised patient to follow up with PCP as needed and as scheduled. Plan See above for full details and plan. Medications: New prednisone 40 mg (2 x 20 mg) PO DAILY 5 days 10 tabs 0RF cyclobenzaprine 10 mg PO TID PRN 10 tabs 0RF muscle spasm Coding Level of Care Code Est Pt Level 3 (20592) Diagnoses Strain of left soleus muscle, initial encounter S86.112A Encounter type: initial encounter
[2024-05-26 14:07] VITALS: BP 124/80; PULSE 85; O2SAT 98
== END 2024-05-26 15:03 | disposition home or self-care (01) ==
PROVIDERS: PCP Nurse Practitioner Family; Visit Provider Registered Nurse
DX: S86.112A Strain of other muscle(s) and tendon(s) of posterior muscle group at lower leg level, left leg, initial encounter (principal)

== ENCOUNTER → 2024-05-26 13:16 | Outpatient (BNVA) | payer MEDICARE, MEDICAID, SELFPAY | PROVIDERS: PCP Nurse Practitioner Family; Visit Provider Registered Nurse | DX: S86.112A Strain of other muscle(s) and tendon(s) of posterior muscle group at lower leg level, left leg, initial encounter (principal) | CPT/HCPCS: 99212 ==

== ENCOUNTER 2024-06-08 12:32 | Outpatient (AMB) | payer MEDICARE, MEDICAID, SELFPAY ==
--- NOTE | 2024-06-08 12:36 | A.OFFPC_ITS ---
Vital Signs 06/08/24 12:37 Height 5 ft 5 in Weight 192 lb BMI 31.9 BP 122/80 Blood Pressure Location Rt brachial Position Sitting Pulse 86 Pulse Source Pulse Oximeter Pulse Oximetry (%) 97 Intake Visit Reasons: follow up Allergies ciprofloxacin [From CIPRO] Allergy (Unknown, Verified 06/08/24 12:37) UNKNOWN doxycycline [DOXYCYCLINE] Allergy (Unknown, Verified 06/08/24 12:37) UNKNOWN prednisone [PREDNISONE] Allergy (Unknown, Verified 06/08/24 12:37) UNKNOWN iron Adverse Reaction (Verified 06/08/24 12:37) Vomiting NUMBING MEDICATION Allergy (Severe, Uncoded 05/26/24 14:06) HEART STOPPED From DETROL Allergy (Unknown, Uncoded 05/26/24 14:06) UNKNOWN From LESCOL Allergy (Unknown, Uncoded 05/26/24 14:06) UNKNOWN Medication List - Last Reconciled 06/08/24 by Francisco Lynne, VETERINARY MEDICINE TEACHER- alcohol swabs (Alcohol Prep Pads) 1 pad topical TID amoxicillin-pot clavulanate 875-125 mg 1 tab PO BID 10 days aspirin 81 mg PO DAILY blood sugar diagnostic (Accu-Chek Soo Plus test strips) USE TO TEST THREE TIMES A DAY DIRECTED [diabetic shoes As directed for diabetes] famotidine 20 mg PO DAILY fenofibrate 54 mg PO DAILY flash glucose scanning reader (FreeStyle [place] 2 [place]) tid flash glucose sensor (FreeStyle Minna 2 Sensor kit) Tetst blood sugar 3 times per day hydrochlorothiazide 25 mg PO QAM 90 days insulin NPH and regular human 100 unit/mL (70-30) (Novolin 70/30 U-100 Insulin) 92 units in AM and 58 units in PM subcut daily; 90 days insulin syringe-needle U-100 use 1 syringe BID for insulin injections levothyroxine 112 mcg PO DAILY lidocaine 4% 1 patch topical DAILY PRN ljigix-yltajqcn-lrljuue 15,000-47,000 -63,000 unit (Zenpep) 1 cap PO TID lisinopril 2.5 mg PO DAILY metoprolol succinate ER 50 mg PO DAILY 90 days pantoprazole 20 mg PO DAILY potassium chloride ER 10 mEq PO DAILY 90 days pravastatin 80 mg PO BEDTIME Shower Chair shower chair with backrest terazosin 5 mg PO BEDTIME ursodiol 300 mg PO BID Tobacco use date assessed: 07/02/23 Dental Screening Dental Screen Date: 07/02/23 HPI follow up HPI Details Chief Complaint The patient reports episodes of hypoglycemia in the morning. History of Present Illness The patient is a 69-year-old male presenting with Type 2 Diabetes Mellitus for follow-up and management. He reports experiencing episodes of hypoglycemia, particularly noted early in the morning, with a recent blood glucose reading as low as 49 mg/dL at around 2 AM. The patient manages his diabetes with NPH insulin, historically taking 92 units in the morning and 58 units at night; however, he has reduced doses to 84 units in the morning and 50 units at night, as advised by a non-medical acquaintance. This regimen has brought morning glucose levels under 100 mg/dL. He has not experienced any episodes of numbness or tingling in the feet, and he has never seen a wrapping checker. The patient notes improved sensation in his feet and has a history of callus formation on the plantar aspect of the left first MTP joint. There have been adjustments to his insulin regimen, influenced by individuals without medical credentials. eye exam is up to date according to pt The patient additionally has a history of hypercholesterolemia, managed with a statin, and hypertension, managed with an VAN inhibitor (lisinopril). He denies a history of kidney stones. Recently, he has been experiencing increased nasal congestion and pressure, suggestive of developing sinus infections. Social History - Family: The patient has seven siblings , with only two brothers and two sisters currently living. - Physical Activity: No specifics were d iscussed regarding exercise or physical activity. - Family Planning: No children mentioned . - Risk Behaviors: Denies current tobacco use; no alcohol or drug use discussed. Health Maintenance - COVID-19 vaccination: Booster received - Influenza vaccination: Completed - Tetanus, diphtheria, and pertussis (Td ap) vaccination: Due and will be administered during the visit - RSV vaccination: Pending, patient advi sed to seek clarification Review of Systems - General: Reports difficulties with mor melissa glucose levels - Endocrine: Reports previous hypoglycem ic episodes - Neurological: Denies numbness or tingl ing in the feet - Musculoskeletal: Note of a callus form ation - Urinary: Denies blood in urine Physical Exam General: Cooperative, healthy appearing, comfortable, no acute distress and well developed Orientation: Patient oriented x3 Limitations: No limitations Head: Normal to inspection Ears: Hearing grossly normal bilaterally Nose: Normal external nose present Face and sinus: Normal facial exam, developing a sinus infection (maxillary/frontal) Eyes: Appearance normal, both eyes and all related structures Neck: Normal visual inspection and Yes full ROM Respiratory: Normal respiratory effort and able to speak in complete sentences. Clear to auscultation bilaterally Cardiovascular: Regular rate and rhythm. Normal S1 and S2 GI: Normal to inspection. Soft to palpation and nontender Skin: No rashes or lesions noted Neuro: Patient oriented x3 Extremities: Normal to inspection, callus on the plantar aspect of the first MTP joint on the left foot, good sensation with the monofilament Results Plan - Adjust NPH insulin regimen as needed w ith continued monitoring of blood glucose levels to avoid hypoglycemia. - Evaluate current doses of hypertensive and statin medications. - Administer Tdap vaccination during the visit. - Monitor symptoms suggestive of sinus i nfection; consider empirical treatment if no improvements or if symptoms worsen. - Continue preventative measures includi ng vaccinated series and potential RSV vaccination pending clarification. Patient was informed and verbally consented to the use of an ambient scribe for clinic note documentation during this visit. Discussion Notes During the consultation, I reviewed the patient's concerns regarding his episodes of hypoglycemia and the adjustments made to his insulin regimen. We discussed the risks associated with uncontrolled high or low blood glucose levels, stressing the importance of consistent dosing and regular monitoring. I informed the patient about the benefits of his current medications for managing hypertension and hypercholesterolemia, as well as the significance of continuing the prescribed statin and VAN inhibitor for cardiovascular protection and renal protection. Additionally, I outlined the potential risks associated with NSAIDs and reassured him of continued appropriate use of Tylenol for managing occasional pain. We discussed the necessity of the Tdap vaccination today and provided anticipatory guidance regarding potential sinus infections. Follow-up is recommended to assess ongoing management and vaccination compliance. Patient Instructions - Continue monitoring blood glucose leve ls closely. - Adhere to the adjusted insulin dosing as discussed. - Complete the Tdap vaccination today. - Use Tylenol for pain management as nee ded. - Contact the clinic if nasal congestion worsens or new symptoms arise. - Follow the prescribed medication regim en for the management of hypertension and hypercholesterolemia. - Consider RSV vaccination after further clarification if desired. [facility] Medical History (Reviewed 02/02/24 @ 12:09 by Francisco Lynne, [facility]) Hypothyroidism Type 1 diabetes COVID Atherosclerotic cardiovascular disease Screening PSA (prostate specific antigen) Hyperlipidemia Hypertension Anxiety Pancreatitis Surgical History S/P CABG x 2 Social History Housing: Apartment Alcohol intake: unknown Patient Tobacco Use Status: Never used Tobacco e-Cigarette/Vaping Use: Never Used Second Hand Smoke Exposure: Yes Current occupational status: retired Cognitive needs: No Hearing needs: No Vision needs: No Questionnaire PHQ-9 Over the last 2 weeks, how often have you been bothered by any of the following problems? 48411 - PHQ-9 Billing: Patient declined-do not bill Source: Developed by Drs. Good Gonzalez, Wilda Holt, Sahil Walden and colleagues, with an educational michael from [employer]. Thrive Questionnaire Date Thrive assessed: 07/02/23 NAGI-7 AMB Questionnaire NAGI-7 Date NAGI - 7 assessed: 07/02/23 Source: Developed by Drs. Good Gonzalez, Wilda Holt, Sahil haywood nd colleagues, with an educational michael from [employer]. Physical exam (Primary Care) Vital Signs: Last Vital Signs Pulse 86 06/08/24 12:37 BP 122/80 06/08/24 12:37 Pulse Ox 97 06/08/24 12:37 BMI result Body Mass Index 31.9 Tobacco/Smoking Status: Tobacco use Status Tobacco use date assessed 07/02/23 06/08/24 12:40 Patient Tobacco Use Status Never used Tobacco 06/08/24 12:40 e-Cigarette/Vaping Use Never Used 06/08/24 12:40 Thrive Assessment: Date of Thrive Assessment Date Thrive assessed 07/02/23 06/08/24 12:40 Results AMB Hemoglobin A1c AMB Hemoglobin A1c 8.3 % Last Edit by Candelario Anand CMA on 06/08/24 12: 53 Immunizations Boostrix Tdap 2.5 Lf unit-8 mcg-5 Lf/0.5 mL intramuscular syringe Performing Provider: TERENCE Galan Performing Location: [facility] Administered by: Candelario Anand CMA on 06/08/24 13:45 Dose Route Admin Location Dispensed Lot Number Expiration Date NDC Auto Dealer 0.5 mL IM Left Deltoid 0.5 mL [id number] 07/14/26 60437-697-81 [employer] VIS Given Date VIS Provided VIS Publication Date 06/08/24 Single Vaccine 21 Eligibility Eligibility Date Funding Source Not [facility] Eligible 06/08/24 Private Results Reviewed Results Reviewed: Laboratory Last Values Hgb A1c (Clinic) 8.3 % (4.0-6.0) H 06/08/24 12:53 Coding Level of Care Code Est Pt Level 3 (67642) Diagnoses Type 2 diabetes mellitus with unspecified complications E11.8 Assessment & Plan Assessment & Plan (1) Type 2 diabetes mellitus with unspecified complications: Code(s): E11.8 - Type 2 diabetes mellitus with unspecified complications Category: Medical Plan . Orders: Orders TSH reflex Free T4 Today E11.8 - Type 2 diabetes mellitus with unspecified complications Lipid Panel Today E11.8 - Type 2 diabetes mellitus with unspecified complications AMB Hemoglobin A1c Today Z13.9 - Encounter for screening, unspecified Complete Blood Count Auto Diff Today E11.8 - Type 2 diabetes mellitus with unspecified complications Comprehensive [place]. Panel Fast Today E11.8 - Type 2 diabetes mellitus with unspecified complications UA CC w/rflx Micro + Cult Today E11.8 - Type 2 diabetes mellitus with unspecified complications Medications: New amoxicillin-pot clavulanate 875-125 mg 1 tab PO BID 10 days 20 tabs 0RF
[2024-06-08 12:37] VITALS: BP 122/80; PULSE 86; O2SAT 97; BMI 31.9
== END 2024-06-08 13:46 | disposition home or self-care (01) ==
PROVIDERS: PCP Nurse Practitioner Family; Visit Provider Nurse Practitioner Family
DX: Z13.9 Encounter for screening, unspecified (principal); Z23 Encounter for immunization; E11.8 Type 2 diabetes mellitus with unspecified complications

== ENCOUNTER → 2024-06-08 12:32 | Outpatient (BNVA) | payer MEDICARE, MEDICAID, SELFPAY | PROVIDERS: PCP Nurse Practitioner Family; Visit Provider Nurse Practitioner Family | DX: E11.649 Type 2 diabetes mellitus with hypoglycemia without coma (principal); Z79.4 Long term (current) use of insulin; Z23 Encounter for immunization | CPT/HCPCS: 83036; 90471; 90715; 99212 ==

== ENCOUNTER 2024-09-07 10:02 | Outpatient (AMB) | payer MEDICARE, MEDICAID, SELFPAY ==
[2024-09-07 10:02] VITALS: BP 132/90; PULSE 95; TEMP 36.4; O2SAT 99; BMI 32.1
--- NOTE | 2024-09-07 10:02 | MHC.OFFWIV ---
Intake Vital Signs 09/07/24 10:02 Height 5 ft 5 in Weight 193 lb 2 oz BMI 32.1 BP 132/90 H Blood Pressure Location Lt brachial Position Sitting Pulse 95 Pulse Source Pulse Oximeter Temp 97.5 F Temp Source Oral Pulse Oximetry (%) 99 Oxygen Delivery Method Room Air Intake Visit Reasons: EP Pain on both ears Intake Note: Pt presents to the office today for bilateral ear pain X3 days. Patient Tobacco Use Status: Never used Tobacco Allergies ciprofloxacin [From CIPRO] Allergy (Unknown, Verified 09/07/24 10:03) UNKNOWN doxycycline [DOXYCYCLINE] Allergy (Unknown, Verified 09/07/24 10:03) UNKNOWN prednisone [PREDNISONE] Allergy (Unknown, Verified 09/07/24 10:03) UNKNOWN iron Adverse Reaction (Verified 09/07/24 10:03) Vomiting NUMBING MEDICATION Allergy (Severe, Uncoded 09/07/24 10:03) HEART STOPPED From DETROL Allergy (Unknown, Uncoded 09/07/24 10:03) UNKNOWN From LESCOL Allergy (Unknown, Uncoded 09/07/24 10:03) UNKNOWN HPI HPI Comments History of Present Illness Details This is a 69-year-old male with a past medical history of hypertension, hyperlipidemia, insulin-dependent diabetes and hypothyroidism presenting for evaluation of pain in his left external ear that radiates down the left side of his posterior neck. Patient states his symptoms have been present for the past 5 days and are not worsening but have not resolved with Tylenol. Patient denies having any fevers, chills, sore throat, right ear pain, dental pain or neck stiffness. PFSH Medical History Hypothyroidism Type 1 diabetes COVID Atherosclerotic cardiovascular disease Screening PSA (prostate specific antigen) Hyperlipidemia Hypertension Anxiety Pancreatitis Surgical History S/P CABG x 2 Social History Housing: Apartment Alcohol intake: unknown Patient Tobacco Use Status: Never used Tobacco e-Cigarette/Vaping Use: Never Used Second Hand Smoke Exposure: Yes Current occupational status: retired Cognitive needs: No Hearing needs: No Vision needs: No Review of Systems Const All systems reviewed & are unremarkable except as noted in HPI and below Eyes Reports no additional complaints ENT Reports otalgia (right external ear), Denies facial pain, Denies hearing loss, Denies nasal obstruction and Reports neck pain Card Reports no additional complaints Resp Reports no additional complaints GI Reports no additional complaints Reports no additional complaints Musc Denies back pain, Denies myalgias, Denies muscle weakness and Reports neck pain Skin/Breast Reports system reviewed and no additional complaints, except as documented Neuro Reports no additional complaints Psych Reports no additional complaints Endo Reports no additional complaints Carlos/Lymph Reports no additional complaints Aller/Immun Reports no additional complaints Physical Exam Vital Signs: Last Vital Signs Temp 97.5 F 09/07/24 10:02 Pulse 95 09/07/24 10:02 BP 132/90 H 09/07/24 10:02 Pulse Ox 99 09/07/24 10:02 Oxygen Delivery Method Room Air 09/07/24 10:02 BMI result Body Mass Index 32.1 Const General: cooperative, healthy appearing, comfortable, no acute distress, well developed, alert, awake and Physically active Nutritional Appearance: overweight Orientation/consciousness: patient oriented x3 Limitations: no limitations HEENT Head: Yes normal to inspection and Yes normocephalic Ears: hearing grossly normal bilaterally, external ears normal, TM's normal bilaterally, EAC's not normal (cerumen bilaterally; TM visualized bilaterally, no foreign body or erythema) and other (minimal pain left tragus, no erythema or edema) General nose exam: Normal external nose present Face and sinus: Yes normal facial exam Mouth: Normal oral and palatal mucosa present Throat: Yes posterior oropharynx normal Eyes General: appearance normal, both eyes and all related structures Neck Neck: Yes normal visual inspection, Yes full ROM, Yes no lymphadenopathy, Yes no meningeal signs, No lymphadenopathy and Yes tender (left paraspinous muscular tenderness; no midline tenderness) Lymphatic: no lymphadenopathy noted Skin General skin exam: no rashes or lesions noted Neuro General: patient oriented x3 and no meningeal signs Psych Appearance: grossly normal Mental Status: mental status grossly normal Insight: Good insight present (Psych) Judgement: Good judgement present (Psych) Assessment & Plan Assessment & Plan (1) Cervical strain, acute: Comment: Patient has tenderness to palpation of the left paraspinous musculature of the cervical spine, no midline tenderness, patient will continue taking Tylenol and a muscle relaxant will be provided. Code(s): S16.1XXA - Strain of muscle, fascia and tendon at neck level, initial encounter Qualifiers: Encounter type: initial encounter Qualified Code(s): S16.1XXA - Strain of muscle, fascia and tendon at neck level, initial encounter Plan: Warm compresses, Tylenol OTC and tizanidine 4mg q.8 hours x 4 days prn. Coding Level of Care Code Est Pt Level 3 (86208) Diagnoses Acute strain of neck muscle, initial encounter S16.1XXA Encounter type: initial encounter Time Spent (min) 20
== END 2024-09-07 10:23 | disposition home or self-care (01) ==
PROVIDERS: PCP Nurse Practitioner Family; Visit Provider Physician Assistant
DX: S16.1XXA Strain of muscle, fascia and tendon at neck level, initial encounter (principal)

== ENCOUNTER → 2024-09-07 10:02 | Outpatient (BNVA) | payer MEDICARE, MEDICAID, SELFPAY | PROVIDERS: PCP Nurse Practitioner Family; Visit Provider Physician Assistant | DX: S16.1XXA Strain of muscle, fascia and tendon at neck level, initial encounter (principal) | CPT/HCPCS: 99212 ==

== ENCOUNTER 2024-12-14 07:26 | Outpatient (REF) | payer MEDICARE, MEDICAID, SELFPAY ==
[2024-12-14 10:01] LABS: MANUAL DIFF FLAG NO
[2024-12-14 10:10] LABS: Basophils Percent Auto 0.5 % (0-2); Eosinophils Absolute Auto 0.4 X10*3/uL (0.0-0.4); Eosinophils Percent Auto 5.3 % (0-4); Hematocrit 37.1 % (42.0-52.0); Hemoglobin 12.1 g/dl (14.0-18.0); Imm Gran Abs Auto 0.05 X10*3/uL (0.00-0.03); Imm Gran Pct Auto 0.7 % (0.0-0.4); Lymphocytes Absolute Auto 2.5 X10*3/uL (1.2-4.9); Lymphocytes Percent Auto 33.2 % (20-40); Mean Corpuscular HGB Conc 32.6 g/dl (31.0-36.0); Mean Corpuscular Hemoglobin 30.3 pg (27.0-33.0); Mean Platelet Volume 11.5 fL (9.4-12.4); Monocytes Absolute Auto 0.5 X10*3/uL (0.1-1.2); Monocytes Percent Auto 6.9 % (2-11); Neutrophils Absolute Auto 4.1 x10*3/uL (2.0-8.3); Neutrophils Percent Auto 53.4 % (45-73); Platelet Count 183 X10*3/uL (160-400); Red Blood Count 3.99 X10*6/uL (4.60-5.80); Red Cell Distribution Width 13.2 % (11.0-16.0); White Blood Count 7.6 X10*3/uL (4.8-10.8)
[2024-12-14 10:16] LABS: Estimated Average Glucose 171 mg/dL; Hemoglobin A1c % 7.6 % (<6.0)
[2024-12-14 10:29] LABS: Appearance Urine Clear; Color Urine Yellow; Glucose Urine UA Negative (Negative); Leukocyte Esterase Urine Negative (Negative); Nitrite Urine Negative (Negative); PH 5.5 (5.0-9.0); Specific Gravity - Urine 1.025 (1.005-1.025); Urine Blood Negative (Negative); Urine Ketones Negative (Negative); Urine Protein Negative (Neg-Trace)
[2024-12-14 10:43] LABS: Alanine Aminotransferase 28 U/L (0-40); Albumin Level 4.2 g/dL (3.5-5.0); Alkaline Phosphatase 66 U/L (39-117); Anion Gap 13 (12-20); Aspartate Amino Transferase 43 U/L (5-37); Bilirubin Total 0.6 mg/dL (0.0-1.0); Blood Urea Nitrogen 25 mg/dL (9-16); Calcium 9.4 mg/dL (8.4-10.2); Carbon Dioxide 25 mmol/L (22-29); Chloride 107 mmol/L (96-108); Cholesterol 107 mg/dL (<200); Estimated Glomerular Filt Rate 37; Glucose Fasting 129 mg/dL (60-99); HDL Cholesterol 32 mg/dL (>40); LDL Cholesterol Calculated 44 mg/dL (<100); Potassium 3.8 mmol/L (3.3-5.1); Sodium 141 mmol/L (135-145); TSH reflex Free T4 4.85 uIU/mL (0.32-4.0); Total Protein 6.7 g/dL (6.5-8.0); Triglycerides 157 mg/dL (<150)
[2024-12-14 11:11] LABS: Creatinine Urine 140.23 mg/dL; Microalbum/Creatinine Ratio Ur 4.2 ug/mg cr (<30)
[2024-12-14 11:15] LABS: Free T4 (Free Thyroxine) 0.96 ng/dL (0.71-1.85)
== END 2024-12-14 07:27 | disposition home or self-care (01) ==
LOC: HO.HMGCLDS 07:26
PROVIDERS: PCP Nurse Practitioner Family; Visit Provider Nurse Practitioner Family
DX: E11.9 Type 2 diabetes mellitus without complications (principal)
CPT/HCPCS: 36415; 80053; 80061; 81003; 82043; 82570; 83036; 84439; 84443; 85025

== ENCOUNTER 2024-12-22 07:41 | Outpatient (REF) | payer MEDICARE, MEDICAID, SELFPAY ==
[2024-12-22 10:46] LABS: Alanine Aminotransferase 26 U/L (0-40); Albumin Level 4.1 g/dL (3.5-5.0); Alkaline Phosphatase 64 U/L (39-117); Anion Gap 14 (12-20); Aspartate Amino Transferase 41 U/L (5-37); Blood Urea Nitrogen 23 mg/dL (9-16); Calcium 9.0 mg/dL (8.4-10.2); Carbon Dioxide 25 mmol/L (22-29); Chloride 104 mmol/L (96-108); Estimated Glomerular Filt Rate 40; Potassium 3.6 mmol/L (3.3-5.1); Sodium 139 mmol/L (135-145); Total Protein 6.7 g/dL (6.5-8.0)
[2024-12-22 11:34] LABS: Free T4 (Free Thyroxine) 1.02 ng/dL (0.71-1.85)
== END 2024-12-22 07:42 | disposition home or self-care (01) ==
LOC: HO.HMGCLDS 07:41
PROVIDERS: PCP Nurse Practitioner Family; Visit Provider Nurse Practitioner Family
DX: R79.89 Other specified abnormal findings of blood chemistry (principal); R94.6 Abnormal results of thyroid function studies
CPT/HCPCS: 36415; 80053; 84439; 84443

== ENCOUNTER 2024-12-29 13:41 | Outpatient (AMB) | payer MEDICARE, MEDICAID, SELFPAY ==
--- NOTE | 2024-12-29 13:56 | MHC.PC.OV ---
Vital Signs 12/29/24 13:59 Height 5 ft 5 in Weight 189 lb BMI 31.4 BP 128/86 Blood Pressure Location Lt brachial Position Sitting Pulse 81 Pulse Source Pulse Oximeter Pulse Oximetry (%) 98 Oxygen Delivery Method Room Air Intake Visit Reasons: DM followup Allergies ciprofloxacin (From CIPRO) Allergy (Unknown, Verified 12/29/24 14:44) UNKNOWN doxycycline (DOXYCYCLINE) Allergy (Unknown, Verified 12/29/24 14:44) UNKNOWN prednisone (PREDNISONE) Allergy (Unknown, Verified 12/29/24 14:44) UNKNOWN iron Adverse Reaction (Verified 12/29/24 14:44) Vomiting NUMBING MEDICATION Allergy (Severe, Uncoded 12/29/24 14:44) HEART STOPPED From DETROL Allergy (Unknown, Uncoded 12/29/24 14:44) UNKNOWN From LESCOL Allergy (Unknown, Uncoded 12/29/24 14:44) UNKNOWN Medication List - Last Reconciled 12/29/24 by Francisco Lynne DESIGNER ARCHITECT- alcohol swabs (Alcohol Prep Pads) 1 pad topical TID aspirin 81 mg PO DAILY blood sugar diagnostic (Accu-Chek Soo Plus test strips) USE TO TEST THREE TIMES A DAY DIRECTED [diabetic shoes As directed for diabetes] famotidine 20 mg PO DAILY fenofibrate 54 mg PO DAILY flash glucose scanning reader (FreeStyle [place] 2 [place]) tid flash glucose sensor (FreeStyle [place] 2 Sensor kit) Tetst blood sugar 3 times per day hydrochlorothiazide 25 mg PO QAM 90 days insulin NPH and regular human 100 unit/mL (70-30) (Novolin 70/30 U-100 Insulin) 92 units in AM and 58 units in PM subcut daily; 90 days insulin syringe-needle U-100 use 1 syringe BID for insulin injections levothyroxine (Levoxyl) 125 mcg PO DAILY yzkexw-evkgpumq-nkqbsrr 15,000-47,000 -63,000 unit (Zenpep) 1 cap PO TID lisinopril 2.5 mg PO DAILY metoprolol succinate ER 50 mg PO DAILY pantoprazole 20 mg PO DAILY potassium chloride ER 10 mEq PO DAILY 90 days pravastatin 80 mg PO BEDTIME Shower Chair shower chair with backrest terazosin 5 mg PO BEDTIME ursodiol 300 mg PO BID Tobacco use date assessed: 12/29/24 Fall risk assessment: 2 + Falls in past year Last assessed Fall Risk: 12/29/24 Dental Screening Dental Screen Date: 12/29/24 Did you have a dental visit in the last 12 months?: No Did you have a dental problem in the last 6 months where you did not have access to dental care?: No Was dental information given to patient?: Patient declined HPI DM followup HPI Details Chief Complaint The patient presents for follow-up management of diabetes. History of Present Illness The patient is a 69-year-old male presenting with follow-up for diabetes management. He denies experiencing polyuria, polydipsia, or neuropathy. His A1c level today is 7.4, which is an improvement, and he is actively working on dietary modifications. knows the s/s of hypoglycemia and how to correct it. The patient also has a history of hypothyroidism. His TSH levels were elevated, prompting an increase in levothyroxine dosage. Preventative care measures include an up-to-date eye examination. Social History Health Maintenance - Eye examination is up-to-date Review of Systems - Endocrine: Denies polyuria, polydipsia - Neurological: Denies neuropathy Physical Exam General: Cooperative, healthy appearing, comfortable, no acute distress and well developed Orientation: Patient oriented x3 Limitations: No limitations Head: Normal to inspection Ears: Hearing grossly normal bilaterally Nose: Normal external nose present Face and sinus: Normal facial exam Eyes: Appearance normal, both eyes and all related structures, eye exam is up-to-date Neck: Normal visual inspection and Yes full ROM Respiratory: Normal respiratory effort and able to speak in complete sentences. Clear to auscultation bilaterally Cardiovascular: Regular rate and rhythm. Normal S1 and S2 GI: Normal to inspection. Soft to palpation and nontender Skin: No rashes or lesions noted Neuro: Patient oriented x3 Extremities: Feet were intact bilaterally, positive sensation with use of monofilament, normal to inspection Results - Labs: A1c level at 7.4 - Labs: Elevated TSH - Labs: LDL cholesterol at 44 Plan The patient's diabetes management will continue with a focus on dietary modifications to maintain or improve the current A1c level of 7.4. The patient's levothyroxine dosage will be increased due to elevated TSH levels, and follow-up labs will be conducted in two months to reassess thyroid function. Discussion Notes I discussed with the patient the importance of maintaining dietary changes to manage diabetes effectively. We also reviewed the need to adjust levothyroxine dosage due to elevated TSH levels and planned for follow-up testing in two months. Patient Instructions - Continue dietary modifications to manage diabetes. - Take the adjusted dose of levothyroxine as prescribed. - Return for follow-up lab tests in two months. [facility] Medical History Hypothyroidism Type 1 diabetes COVID Atherosclerotic cardiovascular disease Screening PSA (prostate specific antigen) Hyperlipidemia Hypertension Anxiety Pancreatitis Surgical History S/P CABG x 2 Social History Housing: Apartment Alcohol intake: unknown Patient Tobacco Use Status: Never used Tobacco e-Cigarette/Vaping Use: Never Used Second Hand Smoke Exposure: Yes Current occupational status: retired Cognitive needs: No Hearing needs: No Vision needs: No Questionnaire PHQ-9 Over the last 2 weeks, how often have you been bothered by any of the following problems? 1. Little interest or pleasure in doing things: not at all 2. Feeling down, depressed, or hopeless: not at all 3. Trouble falling or staying asleep, or sleeping too much: not at all 4. Feeling tired or having little energy: not at all 5. Poor appetite or overeating: not at all 6. Feeling bad about yourself - or that you are a failure or have let yourself or your family down: not at all 7. Trouble concentrating on things, such as reading the newspaper or watching television: not at all 8. Moving or speaking so slowly that other people could have noticed. Or the opposite - being so fidgety or restless that you have been moving around a lot more than usual: not at all 9. Thoughts that you would be better off or of hurting yourself in some way: not at all Total score: 0 Depression Screening Interpretation: Negative Depression Screening Done: Yes 97271 - PHQ-9 Billing: Yes Source: Developed by Drs. Good Gonzalez, Wilda Holt, Sahil Walden and colleagues, with an educational michael from [employer]. Thrive Questionnaire Date Thrive assessed: 12/29/24 I am a: Patient What is your living situation today?: I have a steady place to live Within the past 12 months, did the food you bought not last and you didn't have the money to get more?: Never true Within the past 12 months, did you worry whether your food would run out before you got money to buy more?: Never true Do you have trouble paying for medicines?: No Do you have trouble getting transportation to medical appointments?: No Do you have trouble paying your heating and electricity bill?: No Do you have trouble taking care of your child, family member or friend?: No Do you have trouble with day-to-day activities such as bathing, preparing meals, shopping, managing finances, etc.?: No Are you currently unemployed and looking for a job?: No Are you interested in more education?: No Please select the resources that you would like help with: None Currently or been in a relationship where the following occur: I choose not to answer THRIVE Score: 0 AUDIT C Alcohol Use Questionnaire (AUDIT-C) 1. How often do you have a drink containing alcohol?: Never 3. How often do you have six or more drinks on one occasion?: Never Total Score: 0 Score Reviewed/Action Taken: Yes NAGI-7 AMB Questionnaire NAGI-7 Date NAGI - 7 assessed: 12/29/24 Feeling nervous, anxious, or on edge: 0 = Not at all Not being able to stop or control worryin = Not at all Worrying too much about different things: 0 = Not at all Trouble relaxin = Not at all Being so restless that it is hard to sit still: 0 = Not at all Becoming easily annoyed or irritable: 0 = Not at all Feeling afraid as if something awful might happen: 0 = Not at all Total NAGI-7 score (0-4 normal; 5-9 mild; 10-14 moderate; 15-21 severe): 0 Source: Developed by Drs. Good Gonzalez, Wilda Holt, Sahil Walden and colleagues, with an educational michael from [employer]. NAGI-7 Assessment Billing NAGI-7 Assessment Tool: NAGI-7 Assessment 22842 Physical exam (Primary Care) Vital Signs: Last Vital Signs Pulse 81 12/29/24 13:59 BP 128/86 12/29/24 13:59 Pulse Ox 98 12/29/24 13:59 Oxygen Delivery Method Room Air 12/29/24 13:59 BMI result Body Mass Index 31.4 Tobacco/Smoking Status: Tobacco use Status Tobacco use date assessed 12/29/24 12/29/24 14:03 Patient Tobacco Use Status Never used Tobacco 12/29/24 13:57 e-Cigarette/Vaping Use Never Used 12/29/24 13:57 PHQ-9: PHQ-9 Score PHQ-9: Total score 0 12/29/24 14:47 Depression Screening Interpretation: Negative Thrive Assessment: Date of Thrive Assessment Date Thrive assessed 12/29/24 12/29/24 14:03 Currently or been in a relationship where the following occur: I choose not to answer Results AMB Hemoglobin A1c AMB Hemoglobin A1c 7.4 % Last Edit by Gabby Silveira MA on 12/29/24 14:37 Results Reviewed Results Reviewed: Laboratory Last Values Hgb A1c (Clinic) 7.4 % (4.0-6.0) H 12/29/24 14:36 Coding Level of Care Code Est Pt Level 3 (56088) Diagnoses Screening PSA (prostate specific antigen) Z12.5 Type 2 diabetes mellitus with unspecified complications E11.8 Hypothyroid E03.9 Additional Codes NAGI-7 Assessment Billing - NAGI-7 Assessment Tool: NAGI-7 Assessment 27803 ([id number]) PHQ-9 - 91467 - PHQ-9 Billing: Yes ([id number]) Assessment & Plan Assessment & Plan (1) Screening PSA (prostate specific antigen): Code(s): Z12.5 - Encounter for screening for malignant neoplasm of prostate Category: Medical (2) Type 2 diabetes mellitus with unspecified complications: Code(s): E11.8 - Type 2 diabetes mellitus with unspecified complications Category: Medical (3) Hypothyroid: Code(s): E03.9 - Hypothyroidism, unspecified Category: Medical Plan . Orders: Orders Prostate Specific Antigen Scr Today Z12.5 - Encounter for screening for malignant neoplasm of prostate TSH reflex Free T4 2 Months E03.9 - Hypothyroidism, unspecified Comprehensive Met. Panel 2 Months E03.9 - Hypothyroidism, unspecified AMB Hemoglobin A1c Today Z13.9 - Encounter for screening, unspecified Medications: New levothyroxine (Levoxyl) 125 mcg PO DAILY 30 tabs 3RF Discontinued levothyroxine Discontinued Reason: Doctor's Order 112 mcg PO DAILY 90 caps 1RF
[2024-12-29 13:59] VITALS: BP 128/86; PULSE 81; O2SAT 98; BMI 31.4
== END 2024-12-29 14:57 | disposition home or self-care (01) ==
LOC: HO.HMCC 13:42
PROVIDERS: PCP Nurse Practitioner Family; Visit Provider Nurse Practitioner Family
DX: Z12.5 Encounter for screening for malignant neoplasm of prostate (principal); E11.8 Type 2 diabetes mellitus with unspecified complications; E03.9 Hypothyroidism, unspecified; Z13.9 Encounter for screening, unspecified

== ENCOUNTER 2024-12-29 13:41 | Outpatient (REF) | payer MEDICARE, MEDICAID, SELFPAY | END 2024-12-29 13:42 | disposition home or self-care (01) | LOC: HO.HMGCLDS 13:41 | PROVIDERS: PCP Nurse Practitioner Family; Visit Provider Nurse Practitioner Family | DX: E11.8 Type 2 diabetes mellitus with unspecified complications (principal); E03.9 Hypothyroidism, unspecified; Z12.5 Encounter for screening for malignant neoplasm of prostate; Z13.31 Encounter for screening for depression; Z13.39 Encounter for screening examination for other mental health and behavioral disorders | CPT/HCPCS: 36415; 83036; 84153; 96127; 99212 ==

== ENCOUNTER 2025-01-01 09:20 | Outpatient (AMB) | payer MEDICARE, MEDICAID, SELFPAY ==
[2025-01-01 09:26] VITALS: BP 124/68; PULSE 81; RESP 16; TEMP 36.8; O2SAT 98; BMI 31.3
--- NOTE | 2025-01-01 09:26 | MHC.OFFWIV ---
Intake Vital Signs 01/01/25 09:26 Height 5 ft 5 in Weight 188 lb BMI 31.3 BP 124/68 Blood Pressure Location Lt brachial Position Sitting Respiration 16 Pulse 81 Pulse Source Pulse Oximeter Temp 98.2 F Temp Source Oral Pulse Oximetry (%) 98 Oxygen Delivery Method Room Air Intake Visit Reasons: EP Severe tooth pain Intake Note: Pt is here today c/o severe tooth pain since yesterday Patient Tobacco Use Status: Never used Tobacco Allergies ciprofloxacin (From CIPRO) Allergy (Unknown, Verified 01/31/25 14:06) UNKNOWN doxycycline (DOXYCYCLINE) Allergy (Unknown, Verified 01/31/25 14:06) UNKNOWN prednisone (PREDNISONE) Allergy (Unknown, Verified 01/31/25 14:06) UNKNOWN iron Adverse Reaction (Verified 01/31/25 14:06) Vomiting NUMBING MEDICATION Allergy (Severe, Uncoded 01/01/25 09:26) HEART STOPPED From DETROL Allergy (Unknown, Uncoded 01/01/25 09:26) UNKNOWN From LESCOL Allergy (Unknown, Uncoded 01/01/25 09:26) UNKNOWN HPI EP Severe tooth pain HPI Details Patient is a 69-year-old male with comorbidities including type 1 diabetes and status post CABG due to coronary artery disease, who comes to the walk-in clinic complaining of 2 days of pain to his right lower tooth. He has not been doing preventative dental care for many years, as he reports I cannot remember the last time I have seen a dentist. He reports that this is due to insurance reasons. He apparently did call a dentist yesterday, and was told that they would not take his health insurance, which he admits made him very angry. He is expecting that we can pull out his tooth here at the walk-in, and requests this today. He states that the pain radiates to his right jaw, and makes opening his mouth and eating severely painful. He denies headache, fever chills, nausea vomiting or diarrhea, weakness, myalgias or malaise, or other symptoms suggestive of systemic infection. [facility] Medical History (Updated 01/31/25 @ 14:54 by Silvia Castro NP) Bee sting Hypothyroidism Type 1 diabetes COVID Atherosclerotic cardiovascular disease Screening PSA (prostate specific antigen) Hyperlipidemia Hypertension Anxiety Pancreatitis Surgical History S/P CABG x 2 Social History Housing: Apartment Alcohol intake: unknown Patient Tobacco Use Status: Never used Tobacco e-Cigarette/Vaping Use: Never Used Second Hand Smoke Exposure: Yes Current occupational status: retired Cognitive needs: No Hearing needs: No Vision needs: No Review of Systems Const All systems reviewed & are unremarkable except as noted in HPI and below Physical Exam Vital Signs: Last Vital Signs Temp 98.2 F 01/01/25 09:26 Pulse 81 01/01/25 09:26 Resp 16 01/01/25 09:26 BP 124/68 01/01/25 09:26 Pulse Ox 98 01/01/25 09:26 Oxygen Delivery Method Room Air 01/01/25 09:26 BMI result Body Mass Index 31.3 Patient is agitated and has an angry demeanor, with swelling to the right lower gumline along the lateral aspect of his molars. He has significantly poor dentition throughout his teeth. There is no obvious edema or fluctuance, erythema or warmth or other overlying cellulitic features or evidence of spread of infection to his jaw, ear or mastoid area, and he is able to open and close his jaw, with no edema or the TMJ joint on the right side. Assessment & Plan Assessment & Plan (1) Tooth infection: Code(s): K04.7 - Periapical abscess without sinus Plan: Patient is a 69-year-old male with comorbidities including type 1 diabetes and status post CABG due to coronary artery disease, who comes to the walk-in clinic complaining of 2 days of pain to his right lower tooth, who has not been doing preventative dental care for many years. He was expectant that his tooth would be able to be pulled here at the walk-in, and became agitated and would not listen to medical advice due to his anger, and he stormed out of the office, yelling in the waiting room that nobody cares about him. I called him on his phone and advised that he start an antibiotic, and told him I would write him for a very short course of Percocet for the weekend for his pain when it is severe. We also discussed that due to his health history making him immunocompromised, that he was at risk for an infection that could spread to his soft tissue/bone, and could eventually make him septic and be life-threatening and that he had to monitor this closely. His reply to this was, then maybe I should just then. I told him that if his symptoms worsened over the weekend, that he should go to the emergency department but his response was that if he was not treated immediately and allowed to leave that day, that he would not stay over and would leave. Otherwise, he planned to follow up with another dentist on Friday. Medications: New oxycodone-acetaminophen 5-325 mg (Percocet) Partial Fill upon patient request. 1 tab PO Q6H PRN 8 tabs 0RF pain amoxicillin-pot clavulanate 875-125 mg 1 tab PO BID 28 tabs 0RF tooth infection Coding Level of Care Code Est Pt Level 4 (64054) Diagnoses Tooth infection K04.7
== END 2025-01-01 11:01 | disposition home or self-care (01) ==
PROVIDERS: PCP Nurse Practitioner Family; Visit Provider Physician Assistant Medical
DX: K04.7 Periapical abscess without sinus (principal)

== ENCOUNTER → 2025-01-01 09:20 | Outpatient (BNVA) | payer MEDICARE, MEDICAID, SELFPAY | PROVIDERS: PCP Nurse Practitioner Family; Visit Provider Physician Assistant Medical | DX: K04.7 Periapical abscess without sinus (principal) | CPT/HCPCS: 99212 ==

== ENCOUNTER 2025-01-31 13:56 | Outpatient (AMB) | payer MEDICARE, MEDICAID, SELFPAY ==
[2025-01-31 14:01] VITALS: BP 104/60; PULSE 96; TEMP 36.8; O2SAT 98; BMI 30.9
--- NOTE | 2025-01-31 14:01 | AM.OFFWIN_ITS ---
Intake Vital Signs 3 01/31/25 14:01 Height 5 ft 5 in Weight 186 lb BMI 30.9 BP 104/60 Blood Pressure Location Rt brachial Position Sitting Pulse 96 Pulse Source Pulse Oximeter Temp 98.2 F Temp Source Oral Pulse Oximetry (%) 98 Oxygen Delivery Method Room Air Intake Visit Reasons: EP Bee Sting LT hand, swelling Intake Note: presents with left hand swelling & throbbing after bee sting today Patient Tobacco Use Status: Never used Tobacco Allergies ciprofloxacin (From CIPRO) Allergy (Unknown, Verified 01/31/25 14:06) UNKNOWN doxycycline (DOXYCYCLINE) Allergy (Unknown, Verified 01/31/25 14:06) UNKNOWN prednisone (PREDNISONE) Allergy (Unknown, Verified 01/31/25 14:06) UNKNOWN iron Adverse Reaction (Verified 01/31/25 14:06) Vomiting NUMBING MEDICATION Allergy (Severe, Uncoded 01/01/25 09:26) HEART STOPPED From DETROL Allergy (Unknown, Uncoded 01/01/25 09:26) UNKNOWN From LESCOL Allergy (Unknown, Uncoded 01/01/25 09:26) UNKNOWN Do you need a note to return to daycare/school/sports/work: No HPI HPI Comments 2 History of Present Illness0 Details 69 y/o Male patient who presents to the walk in clinic with c/o left hand pain and swelling. Pt reports being Stung by a Bee on his left index finger joint this afternoon. Reports the Area being Tender, red and swollen. Denies fevers, chills, nausea or vomiting. Denies CP, wheezing or heart palpitations. PFSH Medical History (Updated 01/31/25 @ 14:54 by Silvia Castro NP) Bee sting Hypothyroidism Type 1 diabetes COVID Atherosclerotic cardiovascular disease Screening PSA (prostate specific antigen) Hyperlipidemia Hypertension Anxiety Pancreatitis Surgical History S/P CABG x 2 Social History Housing: Apartment Alcohol intake: unknown Patient Tobacco Use Status: Never used Tobacco e-Cigarette/Vaping Use: Never Used Second Hand Smoke Exposure: Yes Current occupational status: retired Cognitive needs: No Hearing needs: No Vision needs: No Physical Exam Vital Signs: Last Vital Signs Temp 98.2 F 01/31/25 14:01 Pulse 96 01/31/25 14:01 BP 104/60 01/31/25 14:01 Pulse Ox 98 01/31/25 14:01 Oxygen Delivery Method Room Air 01/31/25 14:01 BMI result Body Mass Index 30.9 Const General: no acute distress Nutritional Appearance: obese Orientation/consciousness: patient oriented x3 Neuro General: patient oriented x3, gait normal and moves all extremities Extrem Left upper extremity: hand Details: normal capillary refill, tenderness Location: of the 5th digit Location: at the MCP joint and no swelling; no unusual warmth and no crepitus Hand/finger images: 2 1. A very small puncture present at the MCP joint, no swelling, no redness. Mild TTP. Psych Speech and movement: Normal speech and movement present Assessment & Plan Assessment & Plan (1) Bee sting: Code(s): T63.441A - Toxic effect of venom of bees, accidental (unintentional), initial encounter Qualifiers: Encounter type: initial encounter Injury intent: accidental or unintentional Qualified Code(s): T63.441A - Toxic effect of venom of bees, accidental (unintentional), initial encounter Plan: Apply Cold Compress on the joint to help with pain and swelling. NSAIDs for pain relief. No signs of infection. Coding Level of Care Code Est Pt Level 4 (40194) Diagnoses Bee sting, accidental or unintentional, initial encounter T63.441A Encounter type: initial encounter Injury intent: accidental or unintentional Time Spent (min) 20
== END 2025-01-31 14:33 | disposition home or self-care (01) ==
PROVIDERS: PCP Nurse Practitioner Family; Visit Provider Nurse Practitioner Family
DX: T63.441A Toxic effect of venom of bees, accidental (unintentional), initial encounter (principal)

== ENCOUNTER → 2025-01-31 13:56 | Outpatient (BNVA) | payer MEDICARE, MEDICAID, SELFPAY | PROVIDERS: PCP Nurse Practitioner Family; Visit Provider Nurse Practitioner Family | DX: T63.441A Toxic effect of venom of bees, accidental (unintentional), initial encounter (principal) | CPT/HCPCS: 99212 ==

== ENCOUNTER 2025-02-14 11:53 | Outpatient (AMB) | payer MEDICARE, MEDICAID, SELFPAY ==
--- NOTE | 2025-02-14 12:40 | A.OFFVIS_ITS ---
Vital Signs 02/14/25 12:41 Height 5 ft 5 in Weight 185 lb 3.013 oz BMI 30.8 BP 118/60 Blood Pressure Location Lt brachial Position Sitting Pulse 91 Pulse Source Monitor Intake Visit Reasons: overdue 1 year fu Allergies ciprofloxacin (From CIPRO) Allergy (Unknown, Verified 01/31/25 14:06) UNKNOWN doxycycline (DOXYCYCLINE) Allergy (Unknown, Verified 01/31/25 14:06) UNKNOWN prednisone (PREDNISONE) Allergy (Unknown, Verified 01/31/25 14:06) UNKNOWN iron Adverse Reaction (Verified 01/31/25 14:06) Vomiting NUMBING MEDICATION Allergy (Severe, Uncoded 01/01/25 09:26) HEART STOPPED From DETROL Allergy (Unknown, Uncoded 01/01/25 09:26) UNKNOWN From LESCOL Allergy (Unknown, Uncoded 01/01/25 09:26) UNKNOWN Medication List - Last Reconciled 02/14/25 by Winston Ramirez MD aspirin 81 mg PO DAILY blood sugar diagnostic (Accu-Chek Soo Plus test strips) USE TO TEST THREE TIMES A DAY DIRECTED [diabetic shoes As directed for diabetes] famotidine 20 mg PO DAILY fenofibrate 54 mg PO DAILY flash glucose scanning reader (FreeStyle Minna 2 Mcdonald) tid flash glucose sensor (FreeStyle Minna 2 Sensor kit) Tetst blood sugar 3 times per day hydrochlorothiazide 25 mg PO QAM 90 days insulin NPH and regular human 100 unit/mL (70-30) (Novolin 70/30 U-100 Insulin) 92 units in AM and 58 units in PM subcut daily; 90 days insulin syringe-needle U-100 use 1 syringe BID for insulin injections levothyroxine (Levoxyl) 125 mcg PO DAILY qadscw-xlbqhwqp-yhmuvfy 15,000-47,000 -63,000 unit (Zenpep) 1 cap PO TID lisinopril 2.5 mg PO DAILY metoprolol succinate ER 50 mg PO DAILY oxycodone-acetaminophen 5-325 mg (Percocet) 1 tab PO Q6H PRN pantoprazole 20 mg PO DAILY potassium chloride ER 10 mEq PO DAILY 90 days pravastatin 80 mg PO BEDTIME Shower Chair shower chair with backrest terazosin 5 mg PO BEDTIME ursodiol 300 mg PO BID HPI Comments Details: Isaias returns for follow-up for coronary artery disease and bypass surgery. Overall, he states that he is doing good. No cardiac symptoms whatsoever. No angina or any other concerns. [facility] Medical History (Updated 01/31/25 @ 14:54 by Silvia Castro NP) Bee sting Hypothyroidism Type 1 diabetes COVID Atherosclerotic cardiovascular disease Screening PSA (prostate specific antigen) Hyperlipidemia Hypertension Anxiety Pancreatitis Surgical History S/P CABG x 2 Social History Housing: Apartment Alcohol intake: unknown Patient Tobacco Use Status: Never used Tobacco e-Cigarette/Vaping Use: Never Used Second Hand Smoke Exposure: Yes Current occupational status: retired Cognitive needs: No Hearing needs: No Vision needs: No Review of Systems Const All systems reviewed & are unremarkable except as noted in HPI and below Reports as per HPI and Reports no additional complaints Eyes Reports as per HPI and Denies no additional complaints ENT Denies no additional complaints and Reports as per HPI Card Reports as per HPI, Reports no additional complaints, Denies acrocyanosis, Denies chest pain, Denies leg edema, Denies lightheadedness, Denies palpitations and Denies dyspnea Resp Reports as per HPI, Denies no additional complaints and Denies dyspnea GI Reports as per HPI and Denies no additional complaints Reports no additional complaints and Reports as per HPI Musc Reports no additional complaints and Reports as per HPI Skin/Breast Reports system reviewed and no additional complaints, except as documented Neuro Reports no additional complaints and Reports as per HPI Psych Reports no additional complaints and Reports as per HPI Endo Reports no additional complaints, Reports as per HPI and Denies palpitations Carlos/Lymph Reports no additional complaints and Reports as per HPI Aller/Immun Reports no additional complaints and Reports as per HPI Physical Exam Vital Signs: Last Vital Signs Pulse 91 02/14/25 12:41 BP 118/60 02/14/25 12:41 BMI result Body Mass Index 30.8 Const General: comfortable and no acute distress Orientation/consciousness: patient oriented x3 HEENT Other: Unremarkable Head: Yes normal to inspection Neck Neck: Yes normal visual inspection Chest Chest palpation & inspection: normal inspection of the chest Resp Auscultation: clear to auscultation bilaterally Cardio Palpation: normal PMI Heart sounds: S1 normal heart sound present, S2 normal heart sound present, no gallops, no murmurs and no rubs GI Palpation (GI): Soft to palpation Back/Spine/Pelvis Other: unremarkable Skin General skin exam: no rashes or lesions noted Neuro General: patient oriented x3 Extrem General: Yes normal to inspection Psych Mental Status: mental status grossly normal Office Procedures EKG Details: EKG with underlying sinus rhythm at 91/Min; supraventricular ectopy; rightward axis; [place] [id number], Complete Assessment & Plan Assessment & Plan (1) Atherosclerotic cardiovascular disease: Code(s): I25.10 - Atherosclerotic heart disease of [place] coronary artery without angina pectoris Category: Medical (2) S/P CABG x 2: Code(s): Z95.1 - Presence of aortocoronary bypass graft Category: Surgical (3) Type 2 diabetes mellitus with unspecified complications: Code(s): E11.8 - Type 2 diabetes mellitus with unspecified complications Category: Medical Plan Status post CABG x2 August 2022. Doing well. Continue long-term aspirin. Continue beta-blockers and statins. Lipids are well controlled. LDL 44 mg/dL and triglycerides 157 mg/dL. There is mention of allergy to Lipitor in the [facility] discharge summary but not clear what is the allergy. Listed to be on pravastatin. With regard to diabetes, he is on insulin. Last hemoglobin A1c is 7.4 %. Could be better. Otherwise, he will contact us with any ongoing concerns. We will plan on seeing him back in one year. Total time spent including review of data, counseling, documentation, coordination of care-31 minutes. Coding Level of Care Code Est Pt Level 4 (16974) Diagnoses Atherosclerotic cardiovascular disease I25.10 S/P CABG x 2 Z95.1 Type 2 diabetes mellitus with unspecified complications E11.8 CPT Codes EKG - CPT: 75295-[id number], Complete ([id number])
[2025-02-14 12:41] VITALS: BP 118/60; PULSE 91; BMI 30.8
== END 2025-02-14 12:55 | disposition home or self-care (01) ==
LOC: HO.HCS 11:53
PROVIDERS: PCP Nurse Practitioner Family; Visit Provider Internal Medicine
DX: I25.10 Atherosclerotic heart disease of native coronary artery without angina pectoris (principal); Z95.1 Presence of aortocoronary bypass graft; E11.8 Type 2 diabetes mellitus with unspecified complications
CPT/HCPCS: 93010; 99214

== ENCOUNTER → 2025-02-14 11:53 | Outpatient (BNVA) | payer MEDICARE, MEDICAID, SELFPAY | PROVIDERS: PCP Nurse Practitioner Family; Visit Provider Internal Medicine | DX: I25.10 Atherosclerotic heart disease of native coronary artery without angina pectoris (principal); Z95.1 Presence of aortocoronary bypass graft; E11.8 Type 2 diabetes mellitus with unspecified complications; Z79.4 Long term (current) use of insulin | CPT/HCPCS: 93005; 99212 ==

== ENCOUNTER 2025-05-04 13:32 | Outpatient (AMB) | payer MEDICARE, MEDICAID, SELFPAY ==
[2025-05-04 13:31] VITALS: BP 122/60; PULSE 80; RESP 16; O2SAT 95; BMI 31.6
--- NOTE | 2025-05-04 13:31 | MHC.PC.OV ---
Vital Signs 05/04/25 13:31 Height 5 ft 5 in Weight 190 lb BMI 31.6 BP 122/60 Blood Pressure Location Lt brachial Position Sitting Respiration 16 Pulse 80 Pulse Source Pulse Oximeter Pulse Oximetry (%) 95 Oxygen Delivery Method Room Air Intake Visit Reasons: 4m follow up Software Quality Assurance Specialist Required: No Accompanied by: Self / Same As Patient Allergies ciprofloxacin (From CIPRO) Allergy (Unknown, Verified 01/31/25 14:06) UNKNOWN doxycycline (DOXYCYCLINE) Allergy (Unknown, Verified 01/31/25 14:06) UNKNOWN prednisone (PREDNISONE) Allergy (Unknown, Verified 01/31/25 14:06) UNKNOWN iron Adverse Reaction (Verified 01/31/25 14:06) Vomiting NUMBING MEDICATION Allergy (Severe, Uncoded 01/01/25 09:26) HEART STOPPED From DETROL Allergy (Unknown, Uncoded 01/01/25 09:26) UNKNOWN From LESCOL Allergy (Unknown, Uncoded 01/01/25 09:26) UNKNOWN Tobacco use date assessed: 05/04/25 Fall risk assessment: No Falls in past year Last assessed Fall Risk: 05/04/25 Dental Screening Dental Screen Date: 05/04/25 Did you have a dental visit in the last 12 months?: Yes Did you have a dental problem in the last 6 months where you did not have access to dental care?: No Was dental information given to patient?: Patient has dentist HPI 4m follow up HPI Details Chief Complaint Visit for routine follow-up of diabetes. History of Present Illness The patient is a 70-year-old male presenting for a follow-up visit for diabetes. He is on an insulin regimen, specifically NPH insulin at 70-30, and also takes a statin and an VAN inhibitor. His HbA1c is 7.4% as of today. The patient denies any symptoms of neuropathy. He independently arranges for his eye exams, and his microalbumin screening is up to date. Overall, he is reported to be doing quite well. Social History Health Maintenance - The patient arranges his own diabetic eye exams. - Microalbumin screening is up to date. - He is on a statin and an VAN inhibitor for medical management. Review of Systems - Neurological: Denies neuropathy. - Constitutional: Reports feeling well overall. Physical Exam General: Cooperative, healthy appearing, comfortable, no acute distress and well developed Orientation: Patient oriented x3 Limitations: No limitations Head: Normal to inspection Ears: Hearing grossly normal bilaterally Nose: Normal external nose present Face and sinus: Normal facial exam Eyes: Appearance normal, both eyes and all related structures Neck: Normal visual inspection and Yes full ROM Respiratory: Normal respiratory effort and able to speak in complete sentences. Clear to auscultation bilaterally Cardiovascular: Regular rate and rhythm. Normal S1 and S2 GI: Normal to inspection. Soft to palpation and nontender Skin: No rashes or lesions noted Neuro: Patient oriented x3 Extremities: Positive sensation use of monofilament to feet, intact bilat. Normal to inspection Results - Labs: Today's HbA1c is 7.4%. - Microalbumin screening is noted to be up to date. Plan 1. Diabetes Mellitus The patient presents for a follow-up of his diabetes. His current HbA1c is 7.4%. He denies neuropathy and his foot exam shows intact sensation. He will continue his current medication regimen, which includes NPH insulin, a statin, and an VAN inhibitor. Additional labs will be ordered for the near future. Discussion Notes I reviewed the patient's diabetes management today. His A1c is 7.4, and he is reportedly doing well overall. He denies neuropathy, and his physical exam findings for heart, lungs, and feet were unremarkable. I advised that we will obtain some more labs in the near future. Patient Instructions - Continue taking your insulin, statin, and VAN inhibitor as prescribed. - We will be getting some more lab work done in the near future. - Continue to get your regular eye exams. [facility]LY [facility] Medical History Bee sting Hypothyroidism Type 1 diabetes COVID Atherosclerotic cardiovascular disease Screening PSA (prostate specific antigen) Hyperlipidemia Hypertension Anxiety Pancreatitis Surgical History S/P CABG x 2 Social History Housing: Apartment Alcohol intake: unknown Patient Tobacco Use Status: Never used Tobacco e-Cigarette/Vaping Use: Never Used Second Hand Smoke Exposure: Yes Current occupational status: retired Cognitive needs: No Hearing needs: No Vision needs: No Questionnaire Thrive Questionnaire Date Thrive assessed: 12/29/24 NAGI-7 AMB Questionnaire NAGI-7 Date NAGI - 7 assessed: 12/29/24 Source: Developed by Drs. Godo Gonzalez, Wilda Holt, Sahil Walden and colleagues, with an educational michael from [employer]. Physical exam (Primary Care) Vital Signs: Last Vital Signs Pulse 80 05/04/25 13:31 Resp 16 05/04/25 13:31 BP 122/60 05/04/25 13:31 Pulse Ox 95 05/04/25 13:31 Oxygen Delivery Method Room Air 05/04/25 13:31 BMI result Body Mass Index 31.6 Tobacco/Smoking Status: Tobacco use Status Tobacco use date assessed 05/04/25 05/04/25 13:47 Patient Tobacco Use Status Never used Tobacco 05/04/25 13:32 e-Cigarette/Vaping Use Never Used 05/04/25 13:32 Thrive Assessment: Date of Thrive Assessment Date Thrive assessed 12/29/24 05/04/25 13:32 Results AMB Hemoglobin A1c AMB Hemoglobin A1c 7.4 % Last Edit by Gabby Silveira MA on 05/04/25 14:27 Coding Level of Care Code Est Pt Level 3 (22065) Diagnoses Diabetes E11.9 Assessment & Plan Assessment & Plan (1) Diabetes: Code(s): E11.9 - Type 2 diabetes mellitus without complications Category: Medical Plan . Orders: Orders Comprehensive [place]. Panel Fast Today E11.9 - Type 2 diabetes mellitus without complications Lipid Panel Today E11.9 - Type 2 diabetes mellitus without complications Complete Blood Count Auto Diff Today E11.9 - Type 2 diabetes mellitus without complications TSH reflex Free T4 Today E11.9 - Type 2 diabetes mellitus without complications UA CC w/rflx Micro + Cult Today E11.9 - Type 2 diabetes mellitus without complications AMB Hemoglobin A1c Today E11.9 - Type 2 diabetes mellitus without complications
== END 2025-05-04 14:39 | disposition home or self-care (01) ==
LOC: HO.HMCC 13:33
PROVIDERS: PCP Nurse Practitioner Family; Visit Provider Nurse Practitioner Family
DX: E11.9 Type 2 diabetes mellitus without complications (principal)

== ENCOUNTER → 2025-05-04 13:32 | Outpatient (BNVA) | payer MEDICARE, MEDICAID, SELFPAY | PROVIDERS: PCP Nurse Practitioner Family; Visit Provider Nurse Practitioner Family | DX: E11.9 Type 2 diabetes mellitus without complications (principal) | CPT/HCPCS: 83036; 99212 ==

== ENCOUNTER 2025-05-06 08:34 | Outpatient (REF) | payer MEDICARE, MEDICAID, SELFPAY ==
[2025-05-06 10:26] LABS: MANUAL DIFF FLAG NO
[2025-05-06 10:34] LABS: Hematocrit 38.3 % (42.0-52.0); Hemoglobin 12.3 g/dl (14.0-18.0); Imm Gran Abs Auto 0.06 X10*3/uL (0.00-0.03); Imm Gran Pct Auto 0.7 % (0.0-0.4); Lymphocytes Absolute Auto 1.9 X10*3/uL (1.2-4.9); Mean Corpuscular HGB Conc 32.1 g/dl (31.0-36.0); Mean Corpuscular Hemoglobin 29.8 pg (27.0-33.0); Mean Corpuscular Volume 92.7 fL (80.0-98.0); NRBC Abs Auto 0.000 X10*3/uL (0.0-0.012); NRBC Pct Auto 0.0 /100WBC (0.0-0.2); Platelet Count 197 X10*3/uL (160-400); Red Blood Count 4.13 X10*6/uL (4.60-5.80); White Blood Count 8.1 X10*3/uL (4.8-10.8)
[2025-05-06 11:14] LABS: Alanine Aminotransferase 36 U/L (0-40); Albumin Level 4.3 g/dL (3.5-5.0); Alkaline Phosphatase 75 U/L (39-117); Anion Gap 14 (12-20); Aspartate Amino Transferase 62 U/L (5-37); Blood Urea Nitrogen 24 mg/dL (9-16); Calcium 9.1 mg/dL (8.4-10.2); Carbon Dioxide 24 mmol/L (22-29); Chloride 107 mmol/L (96-108); Cholesterol 117 mg/dL (<200); Estimated Glomerular Filt Rate 40; HDL Cholesterol 35 mg/dL (>40); Potassium 4.4 mmol/L (3.3-5.1); Sodium 141 mmol/L (135-145); Total Protein 6.9 g/dL (6.5-8.0); Triglycerides 205 mg/dL (<150)
[2025-05-06 11:37] LABS: Appearance Urine Clear; Glucose Urine UA Negative (Negative); PH 6.5 (5.0-9.0); Specific Gravity - Urine 1.020 (1.005-1.025)
== END 2025-05-06 08:35 | disposition home or self-care (01) ==
LOC: HO.HMGCLDS 08:34
PROVIDERS: PCP Nurse Practitioner Family; Visit Provider Nurse Practitioner Family
DX: E11.9 Type 2 diabetes mellitus without complications (principal)
CPT/HCPCS: 36415; 80053; 80061; 81003; 84443; 85025

== ENCOUNTER 2025-05-12 13:30 | Outpatient (REF) | payer MEDICARE, MEDICAID, SELFPAY ==
[2025-05-12 16:27] LABS: Alanine Aminotransferase 32 U/L (0-40); Albumin Level 4.6 g/dL (3.5-5.0); Alkaline Phosphatase 63 U/L (39-117); Anion Gap 12 (12-20); Aspartate Amino Transferase 52 U/L (5-37); Blood Urea Nitrogen 26 mg/dL (9-16); Calcium 9.3 mg/dL (8.4-10.2); Carbon Dioxide 26 mmol/L (22-29); Chloride 108 mmol/L (96-108); Estimated Glomerular Filt Rate 37; Potassium 4.0 mmol/L (3.3-5.1); Sodium 142 mmol/L (135-145); Total Protein 7.1 g/dL (6.5-8.0)
[2025-05-13 08:17] LABS: HBS Num1 0.00 mIU/mL (0-7.99); HBc Num1 0.04 S/CO (0.00-0.79); HBsAGNum1 0.37 S/CO (0.00-0.99); Hepatitis A Antibody IgM 0.15 Index (0-0.79); Hepatitis B Surface Antigen Negative (Negative); ~HepC Num1 0.07 S/CO (0.00-0.79); ~Hepatitis A Antibody IgM Nonreactive (Nonreactive); ~Hepatitis B Surface Antibody NONREACTIVE (Nonreactive); ~Hepatitis C Antibody Nonreactive (Nonreactive)
== END 2025-05-12 13:31 | disposition home or self-care (01) ==
LOC: HO.HMGCLDS 13:30
PROVIDERS: PCP Nurse Practitioner Family; Visit Provider Nurse Practitioner Family
DX: R74.8 Abnormal levels of other serum enzymes (principal); E03.9 Hypothyroidism, unspecified
CPT/HCPCS: 36415; 80053; 84443; 86015; 86704; 86706; 86709; 86803; 87340